=== PATIENT | female | born 1960 | race Caucasian/White ===

== ENCOUNTER 2020-05-21 11:43 | Emergency (ER) | payer OTHER, SELFPAY ==
[2020-05-21 11:50] VITALS: BP 118/67; PULSE 96; RESP 16; TEMP 36.1; O2SAT 100
--- NOTE | 2020-05-21 11:57 | ED.GENADULT ---
HPI - General Adult General Chief complaint: Abdominal Pain Stated complaint: LOWER L ABD PAIN Time Seen by Provider: 05/21/20 11:57 Source: patient Mode of arrival: ambulatory Limitations: no limitations History of Present Illness HPI narrative: 59-year-old female patient presents to the [facility] with complaints of left lower quadrant abdominal pain that started last night. Patient denies any fevers, body aches or chills. Denies any nausea, vomiting or diarrhea. Patient denies any pain with urination. Denies any blood in her stool. Patient states she thought at first it was her chili that she ate last night however she states that she has had diverticulitis before about a year and a half ago and is concerned that she might have another flareup. Related Data Home Medications Medication Instructions Recorded Confirmed cholecalciferol (vitamin D3) 25 mcg PO DAILY 05/21/20 05/21/20 [Vitamin D3] rosuvastatin 10 mg PO DAILY 05/21/20 05/21/20 Allergies Allergy/AdvReac Type Severity Reaction Status Date / Time Sulfa (Sulfonamide Allergy Unknown RASH Verified 05/21/20 11:48 Antibiotics) Review of Systems Review of Systems: Narrative: CONSTITUTIONAL: Denies fever, chills, or sweats. EYES: Denies visual changes, redness, or discharge. ENT: Denies rhinorrhea, congestion, sore throat, or otalgia. CARDIOVASCULAR: Denies chest pain, palpitations, or edema. RESPIRATORY: Denies cough or dyspnea. GASTROINTESTINAL: Positive left lower abdominal pain, denies nausea, vomiting, or diarrhea. GENITOURINARY: Denies dysuria or hematuria. SKIN: Denies rash or itching. MUSCULOSKELETAL: Denies back pain, joint pain, or myalgia. NEUROLOGIC: Denies headache, numbness, or weakness. PSYCHIATRIC: Denies anxiety or depression. [facility] Past Medical History Medical History (Updated 05/21/20 @ 12:23 by MELISA Dickens) Hypertension Postmenopausal Family History Family History Sibling Family history of osteoarthritis Family history of malignant neoplasm of breast in first degree relative Patient's sister is Mother Family history of diabetes mellitus in first degree relative Patient's mother is Social History Social History Alcohol intake: never Comments At the time of my signature I agree with nursing past medical history, surgical, social, and family history. There is no relevant family history pertinent to the presenting complaint. Exam Narrative: Exam Narrative: GENERAL: Well-appearing, well-nourished, and in no acute distress. HEAD: Normocephalic, atraumatic. EYES: PERRLA and EOMI. ENT: Nares clear, no rhinorrhea or epistaxis. Mucous membranes moist. NECK: Supple. No lymphadenopathy CHEST: Clear to auscultation. No respiratory distress. HEART: Regular rate and rhythm. No murmur heard. Normal peripheral pulses. ABDOMEN: Soft, flat, nondistended. guarding noted to the left side, no rebound tenderness, or rigid. Patient has tenderness to the left lower quadrant on palpation. No pulsatilla masses. Bowel sounds present in all four quadrants. No organomegaly. Negative Nolan?s sign. No periumbicial tenderness. No Supra public tenderness or distension. Good femoral pulses bilaterally. No hernia noted. No scars or surface trauma. EXTREMITIES: Normal range of motion. No edema. SKIN: Warm, dry, no rash. NEURO: No focal deficits. Alert and oriented x3. Course Vital Signs Vital signs: Vital Signs Temperature 36.1 C L 05/21/20 11:50 Pulse Rate 96 05/21/20 11:50 Respiratory Rate 16 05/21/20 11:50 Blood Pressure 118/67 05/21/20 11:50 Pulse Oximetry 100 05/21/20 11:50 Temperature 36.1 C L 05/21/20 11:50 Pulse Rate 96 05/21/20 11:50 Respiratory Rate 16 05/21/20 11:50 Blood Pressure 118/67 05/21/20 11:50 Pulse Oximetry 100 05/21/20 11:50 V
== END 2020-05-21 12:24 | disposition short-term general hospital (02) ==
PROVIDERS: Emergency Provider Nurse Practitioner Family; PCP Physician Assistant
DX: R10.32 Left lower quadrant pain (principal); I10 Essential (primary) hypertension
CPT/HCPCS: 81003; 99212; G0463

== ENCOUNTER 2020-05-21 12:35 | Emergency (ER) | payer OTHER, SELFPAY ==
--- NOTE | ~2020-05-21 | CT_ITS ---
EXAMINATION: CT abdomen pelvis w con DATE: 05/21/2020 13:46 INDICATION: Left lower quadrant pain. Diverticulitis. TECHNIQUE: Computed tomography (CT) of the head was performed with 100 cc Omnipaque 350 intravenous c ontrast. The dose-length product was 1066.92 mGy-cm. Automated exposure control and iterative reconst ruction technique were employed. COMPARISON: CT dated 06/24/2018 FINDINGS: Lung bases are unremarkable. No significant pleural or pericardial effusion. No significant vascular abnormality. There is acute sigmoid diverticulitis with moderate surrounding phlegmonous change and free fluid. No free air. No abscess. Normal appendix. The liver, spleen, pancreas, adrenal glands and kidneys are unremarkable. No hydronephrosis. Nonobstr uctive bowel gas pattern. No acute osseous abnormality. IMPRESSION: 1. Acute sigmoid diverticulitis with moderate surrounding phlegmonous change. No evidence for abscess or perforation. Reviewed, dictated and finalized at location A. ONIC LABORATORY TECHNICIAN IMPRESSION: 1. Acute sigmoid diverticulitis with moderate surrounding phlegmonous change. N o evidence for abscess or perforation.
[2020-05-21 12:40] VITALS: BP 113/64; PULSE 102; RESP 18; TEMP 36.1; O2SAT 99
[2020-05-21 13:12] LABS: Basophils Percent Auto 0.2 % (0.2-1.2); Eosinophils Absolute Auto 0.1 K/mm3 (0-0.3); Eosinophils Percent Auto 0.5 % (0-4.4); Hematocrit 46.6 % (37.0-47.0); Hemoglobin 15.7 g/dL (12.0-15.0); Immature Granulocyte Absolute 0.05 K/mm3 (0.00-0.031); Immature Granulocyte Percent A 0.3 % (0-0.5); Lymphocytes Absolute Auto 2.07 K/mm3 (0.9-3.2); Lymphocytes Percent Auto 13.5 % (18.3-44.2); Mean Corpuscular HGB Conc 33.7 g/dl (32-36); Mean Corpuscular Hemoglobin 31.3 pg (26-34); Mean Corpuscular Volume 92.8 fl (80-100); Mean Platelet Volume 9.7 fl (7.4-10.4); Monocytes Absolute Auto 1.2 K/mm3 (0.1-0.6); Monocytes Percent Auto 7.5 % (2.6-8.5); Platelet Count Result 293 k/mm3 (150-375); Red Blood Count 5.02 M/mm3 (4.2-5.4); Red Cell Distribution Width 12.5 % (11.5-14.5); White Blood Count 15.4 K/mm3 (4.5-10.0)
[2020-05-21 13:14] LABS: Add Urine Microscopic? NO; Appearance Urine Clear (Clear); Bilirubin Urine Negative (Negative); Blood Urine Negative (Negative); Color Urine Yellow (Yellow); Glucose Urine UA Negative (Negative); Ketones Urine Negative (Negative); Leukocyte Esterase Ur Negative LEU/UL (Negative); Nitrate Urine Negative (Negative); Protein Urine Negative (Negative); Specific Grav Ur 1.018 (1.001-1.035); Urobilinogen Urine Negative mg/dL (<2.0)
[2020-05-21] MEDS: SODIUM CHLORIDE 0.9% IV 1,000 ML 999 ML IV CONT (13:14)
[2020-05-21] MEDS: FAMOTIDINE 20 MG/2 ML VIAL IV PUSH (13:14)
[2020-05-21 13:17] VITALS: BP 125/65; PULSE 80; RESP 20; O2SAT 98
[2020-05-21 13:18] LABS: Alanine Aminotransferase 39 U/L (4-35); Alkaline Phosphatase 39 U/L (38-126); Anion Gap 7 mmol/L (8-16); Aspartate Amino Transferase 32 U/L (14-36); Bilirubin,Total 0.7 mg/dL (0.2-1.3); Blood Urea Nitrogen 16 mg/dL (7-17); Carbon Dioxide 32 mmol/L (22-30); Chloride 101 mmol/L (98-107); Estimated CRCL calculation 61 ml/min; Estimated Glomerular Filt Rate 56; Glucose 100 mg/dL (65-105); Lipase 108 U/L (23-300); Potassium 4.1 mmol/L (3.4-5.0); Sodium 140 mmol/L (137-145)
--- NOTE | 2020-05-21 13:37 | ED.GENADULT ---
HPI - General Adult General Chief complaint: Abdominal Pain <Andrea Beltre PA-C - Last Filed: 05/21/20 14:37> Stated complaint: abd pain <Andrea Beltre PA-C - Last Filed: 05/21/20 14:37> Time Seen by Provider: 05/21/20 12:50 <Andrea Beltre PA-C - Last Filed: 05/21/20 14:37> Source: patient <Andrea Beltre PA-C - Last Filed: 05/21/20 14:37> Mode of arrival: ambulatory <Andrea Beltre PA-C - Last Filed: 05/21/20 14:37> History of Present Illness HPI narrative: Patient is a 59-year-old female who presents from urgent care for evaluation of left lower quadrant abdominal pain that started with last night and has worsened into today patient notes history of diverticulitis with concern denies rectal bleeding melena urinary or vaginal complaints or any URI symptoms has not had anything for her symptoms and presents in no distress <Andrea Beltre PA-C - Last Filed: 05/21/20 14:37> Related Data Home medications: Home Medications Medication Instructions Recorded Confirmed cholecalciferol (vitamin D3) 25 mcg PO DAILY 05/21/20 05/21/20 [Vitamin D3] rosuvastatin 10 mg PO DAILY 05/21/20 05/21/20 <Andrea Beltre PA-C - Last Filed: 05/21/20 14:37> Allergies/adverse reactions: Allergies Allergy/AdvReac Type Severity Reaction Status Date / Time Sulfa (Sulfonamide Allergy Unknown RASH Verified 05/21/20 11:48 Antibiotics) <Andrea Beltre PA-C - Last Filed: 05/21/20 14:37> Review of Systems Review of Systems: All systems reviewed & are unremarkable except as noted in HPI and below <Andrea Beltre PA-C - Last Filed: 05/21/20 14:37> PMF Past Medical History Medical History: Medical History Hypertension Postmenopausal <nAdrea Beltre PA-C - Last Filed: 05/21/20 14:37> Family History Family History: Family History Sibling Family history of osteoarthritis Family history of malignant neoplasm of breast in first degree relative Patient's sister is Mother Family history of diabetes mellitus in first degree relative Patient's mother is <Andrea Beltre PA-C - Last Filed: 05/21/20 14:37> Social History Social History: Social History Alcohol intake: never <Andrea Beltre PA-C - Last Filed: 05/21/20 14:37> Exam Narrative: Exam Narrative: GENERAL: Well-appearing, well-nourished, and in no acute distress. HEAD: Normocephalic, atraumatic. EYES: PERRLA and EOMI. ENT: Nares clear, no rhinorrhea or epistaxis. Mucous membranes moist. CHEST: Clear to auscultation. No respiratory distress. No wheezes rales or rhonchi HEART: Regular rate and rhythm. No murmur heard. Normal peripheral pulses. ABDOMEN: Soft, focal left lower quadrant tenderness to palpation with guarding, nondistended EXTREMITIES: Normal range of motion. No edema. SKIN: Warm, dry, no rash. NEURO: No focal deficits. Alert and oriented x3. PSYCH: Normal mood and affect. <Andrea Beltre PA-C - Last Filed: 05/21/20 14:37> Course Course Emergency Course: Patient found to have uncomplicated sigmoid diverticulitis will be discharged home was hydrated in the emergency department is afebrile nontoxic-appearing no distress given reasons to return will follow with primary care and is also been provided with a GI referral <Andrea Beltre PA-C - Last Filed: 05/21/20 14:37> Vital Signs Vital signs: Vital Signs Temperature 97.0 F L 05/21/20 12:40 Pulse Rate 102 H 05/21/20 12:40 Respiratory Rate 18 05/21/20 12:40 Blood Pressure 113/64 05/21/20 12:40 Pulse Oximetry 99 05/21/20 12:40 Temperature 97.0 F L 05/21/20 12:40 Pulse Rate 92 05/21/20 14:54 Respiratory Rate 20 05/21/20 14:54 Blood Pressure 141/68 H
[2020-05-21 14:22] VITALS: BP 141/68; PULSE 84; RESP 20; O2SAT 98
[2020-05-21 14:54] VITALS: BP 141/68; PULSE 92; RESP 20; O2SAT 97
== END 2020-05-21 14:56 | disposition home or self-care (01) ==
PROVIDERS: Emergency Medicine; Emergency Provider General Practice; PCP Physician Assistant
DX: K57.32 Diverticulitis of large intestine without perforation or abscess without bleeding (principal); I10 Essential (primary) hypertension
CPT/HCPCS: 36415; 74177; 80053; 81003; 83690; 85025; 96361; 96374; 99284; J7030; Q9967

== ENCOUNTER 2020-11-07 08:00 | Outpatient (CLI) | payer OTHER, SELFPAY ==
--- NOTE | ~2020-11-07 | MM_ITS ---
EXAMINATION: MM screening sandy BI w bing HISTORY: Screening mammogram TECHNIQUE: Craniocaudal and mediolateral oblique 3-D tomosynthesis images were obtained and synthetic 2-D images were generated. CAD analysis was submitted and interpreted. COMPARISON: 03/25/2017 bilateral diagnostic digital mammography and limited left breast ultrasound 03/24/2010, 02/12/2008 bilateral digital screening mammogram examinations BREAST PARENCHYMAL COMPOSITION: The breasts are heterogeneously dense, which may obscure small masses . FINDINGS: There is asymmetry in the outer right breast on craniocaudal view; diagnostic right mammogr am is recommended, with ultrasound if required. Otherwise there Is no evidence of suspicious mass, calcification, or architectural distortion to sugg est malignancy in either breast. There has been no suspicious interval change. IMPRESSION: 1. Asymmetry in the outer right breast on craniocaudal view 2. Diagnostic right mammogram is recommended, with ultrasound if required BI-RADS Category 0: Incomplete: Needs additional imaging evaluation. Reviewed, dictated and finalized at location A.
== END 2020-11-07 08:01 | disposition home or self-care (01) ==
LOC: ANHIMG 08:03
PROVIDERS: PCP Physician Assistant; Visit Provider Physician Assistant
DX: Z12.31 Encounter for screening mammogram for malignant neoplasm of breast (principal); R92.8 Other abnormal and inconclusive findings on diagnostic imaging of breast
CPT/HCPCS: 77063; 77067

== ENCOUNTER 2020-12-02 12:06 | Outpatient (CLI) | payer OTHER, SELFPAY ==
--- NOTE | ~2020-12-02 | MM_ITS ---
EXAMINATION: MM diagnostic mammo unilat RT HISTORY: Right breast asymmetries on screening mammogram TECHNIQUE: Additional 3-D tomosynthesis images of the right breast were performed and synthetic 2-D i mages were generated. CAD analysis was submitted and interpreted. COMPARISON: 11/07/2020, 03/25/2017, 03/24/2010 BREAST PARENCHYMAL COMPOSITION: The breasts are heterogeneously dense, which may obscure small masses . FINDINGS: There is a return to baseline fibroglandular appearance with spot compression of the right breast in the areas questioned on screening mammogram. IMPRESSION: 1. No mammographic evidence of malignancy. 2. Recommend routine screening mammography in one year. BI-RADS Category 1: Negative Reviewed, dictated and finalized at location A.
== END 2020-12-02 12:07 | disposition home or self-care (01) ==
LOC: ANHIMG 12:08
PROVIDERS: PCP Physician Assistant; Visit Provider Physician Assistant
DX: R92.8 Other abnormal and inconclusive findings on diagnostic imaging of breast (principal)
CPT/HCPCS: 77065

== ENCOUNTER 2021-01-05 15:26 | Outpatient (CLI) | payer OTHER, SELFPAY ==
[2021-01-05 17:39] LABS: Iron 83 ug/dL (37-170)
[2021-01-05 17:49] LABS: Percent Iron Saturation 30 % (20-50)
[2021-01-05 18:00] LABS: Hepatitis B Surface Antigen Negative (Negative)
[2021-01-05 18:06] LABS: HAV RESULT Negative (Negative); Hepatitis B Core IgM Result Negative (Negative)
[2021-01-05 18:18] LABS: Hepatitis C Virus Antibody Negative (Negative)
[2021-01-10 20:30] LABS: Alpha-1-Antitrypsin, QN 120 mg/dL (83-199); Ceruloplasmin 28 mg/dL (18-53)
[2021-01-11 23:06] LABS: Mitochondrial (M2) Ab (IgG) <=20.0 U (<=20.0)
[2021-01-18 10:57] LABS: Fibrosis Score 0.03; Fibrosis Stage F0; Haptoglobin 193; Necroinflammat Act Grade A0
[2021-01-18 10:58] LABS: ALT 24; Alpha-2-Macroglobulin 129; Apolipoprotein A1 185; GGT 20; Total Bilirubin 0.2
== END 2021-01-05 15:27 | disposition home or self-care (01) ==
LOC: ANHLAB 15:27
PROVIDERS: PCP Physician Assistant; Visit Provider Internal Medicine Gastroenterology
DX: R74.8 Abnormal levels of other serum enzymes (principal)
CPT/HCPCS: 36415; 80074; 81596; 82103; 82104; 82390; 82728; 83520; 83540; 83550; 86038

== ENCOUNTER 2022-03-16 04:14 | Observation (INO) | payer OTHER, SELFPAY ==
[2022-03-16] VITALS (20 sets, daily range): BP systolic 104–137; BP diastolic 69–84; PULSE 66–98; RESP 10–19; TEMP 36.2–36.6; O2SAT 96–99; BMI 30.7
--- NOTE | ~2022-03-16 | CT_ITS ---
EXAMINATION: CT abdomen pelvis w con DATE: 03/16/2022 05:06 INDICATION: Abdomen pain TECHNIQUE: Computed tomography (CT) of the abdomen and pelvis was performed with 100 cc Omnipaque 350 intravenous contrast. The dose-length product was 1250.95 mGy-cm. Automated exposure control and ite rative reconstruction technique were employed. COMPARISON: CT dated 05/21/2020. FINDINGS: Lung bases are unremarkable. Heart size normal. No significant pleural or pericardial effus ion. No significant vascular abnormality. No lymphadenopathy. The liver, spleen, pancreas, adrenal glands and kidneys are unremarkable. Gallbladder is present. There is proximal acute sigmoid diverticulitis with probable intramural abscess measuring 18 x 15 mm. No free air. Trace free fluid in the pelvis. Nonobstructive bowel gas pattern. IMPRESSION: 1. Acute proximal sigmoid colon diverticulitis with probable intramural abscess measuring 18 x 15 mm, series 3 image 158. Reviewed, dictated and finalized at location B.
[2022-03-16 04:40] LABS: Basophils Absolute Auto 0.1 K/mm3 (0.0-0.1); Basophils Percent Auto 0.5 % (0.2-1.2); Eosinophils Absolute Auto 0.2 K/mm3 (0-0.3); Eosinophils Percent Auto 1.6 % (0-4.4); Hematocrit 44.2 % (37.0-47.0); Hemoglobin 14.9 g/dL (12.0-15.0); Immature Granulocyte Absolute 0.02 K/mm3 (0.00-0.031); Immature Granulocyte Percent A 0.2 % (0-0.5); Lymphocytes Absolute Auto 2.58 K/mm3 (0.9-3.2); Mean Corpuscular HGB Conc 33.7 g/dl (32-36); Mean Corpuscular Hemoglobin 31.1 pg (26-34); Mean Corpuscular Volume 92.3 fl (80-100); Mean Platelet Volume 9.7 fl (7.4-10.4); Monocytes Percent Auto 9.6 % (2.6-8.5); Neutrophils Absolute Auto 6.9 K/mm3 (1.3-6.7); Neutrophils Percent Auto 64.1 % (45.5-73.1); Platelet Count Result 273 k/mm3 (150-375); Red Blood Count 4.79 M/mm3 (4.2-5.4); Red Cell Distribution Width 12.5 % (11.5-14.5); White Blood Count 10.7 K/mm3 (4.5-10.0)
--- NOTE | 2022-03-16 04:41 | ED.GENADULT ---
HPI - General Adult General Chief complaint: Abdominal Pain Stated complaint: ABD Cramping Time Seen by Provider: 03/16/22 04:28 Source: RN notes reviewed History of Present Illness HPI narrative: Patient presents emergency department from home for abdominal pain. Patient states that symptoms began 2 days ago. The pain is located in left lower abdomen described as sharp and stabbing states the pain does not radiate. States has been associate with constipation. She denies any fevers or chills nausea or vomiting or any other symptoms. States she took Tylenol earlier in the night for the pain with minimal relief states she has a history of diverticulitis Related Data Home Medications Medication Instructions Recorded Confirmed rosuvastatin 10 mg tablet 10 mg PO DAILY 05/21/20 05/21/20 Allergies Allergy/AdvReac Type Severity Reaction Status Date / Time Sulfa (Sulfonamide Allergy Unknown RASH Verified 03/16/22 04:22 Antibiotics) ciprofloxacin [From Cipro] Allergy Unknown Verified 03/16/22 04:22 Review of Systems Review of Systems: Gen.: Denies fevers or chills ENT: Denies congestion Respiratory: Denies shortness of breath or cough CV: Denies chest pain or palpitations GI: See HPI Musculoskeletal: Denies back pain or muscle pain Neuro: Denies numbness, tingling, weakness or focal weakness Skin: Denies rash Except as documented, all other systems reviewed and negative [facility] Past Medical History Medical History Colon cancer screening Elevated liver enzymes Hypertension Postmenopausal Family History Family History Sibling Family history of osteoarthritis Family history of malignant neoplasm of breast in first degree relative Patient's sister is Mother Family history of diabetes mellitus in first degree relative Patient's mother is Social History Social History Smoking status: Never smoker Alcohol intake: never Substance use: never Exam Narrative: APPEARANCE: No acute distress, nontoxic, resting in bed HEENT: Normocephalic, atraumatic, OMM RESPIRATORY: No respiratory distress, clear to auscultation bilaterally with no rhonchi wheezing or rales CARDIOVASCULAR: RRR s murmur ABDOMINAL: Soft nondistended tender palpation left lower quadrant no tenderness right lower quadrant and right upper quadrant left upper quadrant no rebound or guarding MUSCULOSKELETAl: Moves all extremities. No clubbing, cyanosis or edema. NEURO: Awake and alert. Following commands, speech normal, no focal deficits SKIN:: Warm, dry. Normal Color PSYCHIATRIC: Normal affect/mood Course Course Emergency Course: Discussed with Dr. Vanegas presentation work-up agrees with admission to his service Discussed with patient and family results of workup and diagnosis. Discussed need for admission. Patient and family understand and agree to current treatment plan Vital Signs Vital signs: Vital Signs Temperature 97.7 F 03/16/22 04:22 Pulse Rate 98 03/16/22 04:22 Respiratory Rate 18 03/16/22 04:22 Blood Pressure 104/84 03/16/22 04:22 Pulse Oximetry 99 03/16/22 04:22 Oxygen Delivery Room Air 03/16/22 04:22 Temperature 97.7 F 03/16/22 04:22 Pulse Rate 81 03/16/22 05:30 Respiratory Rate 17 03/16/22 05:30 Blood Pressure 123/69 03/16/22 04:46 Pulse Oximetry 99 03/16/22 04:22 Oxygen Delivery Room Air 03/16/22 04:22 Medical Decision Making Vital Signs Vital Signs: Vital Signs Temperature 97.7 F 03/16/22 04:22 Pulse Rate 98 03/16/22 04:22 Respiratory Rate 18 03/16/22 04:22 Blood Pressure 104/84 03/16/22 04:22 Pulse Oximetry 99 03/16/22 04:22 Oxygen Delivery Room Air 03/16/22 04:22 Temperature 97.7 F 03/16/22 04:22 Pulse Rate 81 03/16/22 05:30 Re
[2022-03-16 04:51] LABS: Alanine Aminotransferase 30 U/L (6-35); Albumin Level 4.6 g/dL (3.5-5.1); Alkaline Phosphatase 38 U/L (38-126); Anion Gap 5 mmol/L (8-16); Aspartate Amino Transferase 29 U/L (14-36); Bilirubin,Total 0.7 mg/dL (0.2-1.3); Blood Urea Nitrogen 15 mg/dL (7-17); Calcium 9.6 mg/dL (8.4-10.2); Carbon Dioxide 30 mmol/L (22-30); Chloride 104 mmol/L (98-107); Estimated CRCL calculation 66 ml/min; Estimated Glomerular Filt Rate > 60; Glucose 113 mg/dL (65-110); Lipase 68 U/L (23-300); Potassium 4.1 mmol/L (3.4-5.0); Sodium 139 mmol/L (137-145)
[2022-03-16] MEDS: KETOROLAC 30 MG/ML VIAL (*BKC) IV PUSH (05:05)
[2022-03-16] MEDS: ONDANSETRON INJ 4 MG/2 ML VIAL IV PUSH (05:05)
[2022-03-16] MEDS: SODIUM CHLORIDE 0.9% IV 1,000 ML 999 ML IV CONT (05:05)
[2022-03-16 05:11] LABS: Appearance Urine Clear (Clear); Bilirubin Urine Negative (Negative); Blood Urine Negative (Negative); Color Urine Yellow (Yellow); Glucose Urine UA Negative (Negative); Ketones Urine Negative (Negative); Leukocyte Esterase Ur Negative LEU/UL (Negative); Mucus Urine Rare /lpf; Nitrate Urine Negative (Negative); Protein Urine Negative (Negative); RBC Urine 0-2 /hpf (0-2); Specific Grav Ur 1.025 (1.001-1.035); Squamous Epithelial Cell Urine Rare /hpf (Few); Urobilinogen Urine 0.2 mg/dL (<2.0); pH Urine 5.5 (5.0-9.0)
[2022-03-16 05:12] LABS: Add Urine Microscopic? NO
[2022-03-16 06:41] LABS: SARS-CoV-2 RNA PCR Negative
[2022-03-16] MEDS: SODIUM CHLORIDE 0.9% IV 1,000 ML 125 ML IV CONT ×2 (06:58→18:09)
--- NOTE | 2022-03-16 10:59 | PM.IMHP ---
H&P: HPI History of Present Illness Date/Time: 03/16/22 10:59 Chief Complaint: Left lower quadrant abdominal pain Narrative: The patient is a 61-year-old female presenting to the emergency department complaining of severe left lower quadrant abdominal pain. The patient reports the pain has been present for last few days and has progressively been worsening. Patient reports the pain is sharp and stabbing localized to the right lower quadrant. The patient reports associated poor appetite, fevers, and chills. The patient reports she has had at least 2 other episodes over the last couple of years, however, they were not as severe and were treated with outpatient antibiotics. Review of Systems Constitutional: Constitutional: Reports as per HPI, Denies anorexia, Reports chills, Reports fatigue, Reports fever(s), Reports lethargy, Reports malaise, Reports poor appetite, Reports weakness, Denies weight gain and Denies weight loss Eyes: Eyes: Reports no additional eye complaints ENT: Reports system reviewed and no additional complaints, except as documented Cardiovascular: Cardiovascular: Reports no additional cardiovascular complaints Respiratory: Respiratory: Reports no additional respiratory complaints Gastrointestinal: Gastrointestinal: Reports as per HPI, Reports abdominal pain, Reports bloating, Reports change in bowel habits, Reports GI cramping, Reports nausea, Denies vomiting and Denies hematemesis Genitourinary: Genitourinary: Reports no additional female genitourinary complaints Musculoskeletal: Musculoskeletal: Reports no additional musculoskeletal complaints Integumentary/Breasts: Skin/Breast: Reports system reviewed and no additional complaints, except as docu Neurologic: Reports system reviewed and no additional complaints, except as documented Psychiatric: Psychiatric: Reports no additional psychiatric complaints Endocrine: Endocrine: Reports no additional endocrine complaints Hematologic/Lymphatic: Hematologic/Lymphatic: Reports no additional hematologic/lymphatic complaints Allergic/Immunologic: Allergic/Immunologic: Reports no additional allergic/immunologic complaints PMF Past Medical History Medical History Colon cancer screening Elevated liver enzymes Hypertension Postmenopausal Family History Family History Sibling Family history of osteoarthritis Family history of malignant neoplasm of breast in first degree relative Patient's sister is Mother Family history of diabetes mellitus in first degree relative Patient's mother is Social History Social History Smoking status: Never smoker Alcohol intake: unknown Substance use: never Spiritual care concerns: No Meds Home Medications and Allergies Home Medications Medication Instructions Recorded Confirmed Type rosuvastatin 10 mg tablet 10 mg PO DAILY 05/21/20 03/16/22 History amoxicillin 875 mg-potassium 1 tablet PO BID 03/16/22 03/16/22 History clavulanate 125 mg tablet metronidazole 500 mg tablet 500 mg PO TID 03/16/22 03/16/22 History Allergies Allergy/AdvReac Type Severity Reaction Status Date / Time Sulfa (Sulfonamide Allergy Unknown RASH Verified 03/16/22 08:03 Antibiotics) ciprofloxacin [From Cipro] Allergy Unknown Verified 03/16/22 08:03 Vital Signs Vital Signs - 24 hr 03/16/22 04:22 03/16/22 04:32 03/16/22 04:34 Temperature 36.5 C Pulse Rate 98 77 Respiratory Rate 18 19 10 L Blood Pressure 104/84 137/74 Pulse Oximetry 99 Oxygen Delivery Room Air 03/16/22 04:45 03/16/22 04:46 03/16/22 05:04 Temperature Pulse Rate 78 80 94 Respiratory Rate 16 15 14 Blood Pressure 123/69 Pulse Oximetry Oxygen Delivery 03/16/22 05:15 03/16/22 05:30 03/16/22 05:45 Temperature P
--- NOTE | 2022-03-16 13:00 | ADMGEN ---
This patient, Chrissy Christine, was admitted to [facility] Surg Room 311-01 at 0750. Patient/family oriented to hospital policies and general routines including ID bracelet, bed and alarms, visiting hours, pain management, procedures, bathroom and other care routines, personal items, smoking policy, room service/diet, and visiting hours. Information on how to activate the Rapid Response Team has been discussed. Patient/Family are encouraged to report perceived risks to care and to ask questions if they do not understand what they are told or what they should do.
[2022-03-16] MEDS: ACETAMINOPHEN 325 MG TABLET 650 MG PO (18:09)
[2022-03-17 05:50] VITALS: BP 147/75; PULSE 68; RESP 18; TEMP 36.4; O2SAT 98
[2022-03-17 06:01] LABS: Basophils Percent Auto 0.4 % (0.2-1.2); Eosinophils Absolute Auto 0.2 K/mm3 (0-0.3); Eosinophils Percent Auto 3.2 % (0-4.4); Hematocrit 39.9 % (37.0-47.0); Hemoglobin 13.3 g/dL (12.0-15.0); Immature Granulocyte Absolute 0.01 K/mm3 (0.00-0.031); Immature Granulocyte Percent A 0.2 % (0-0.5); Lymphocytes Absolute Auto 1.71 K/mm3 (0.9-3.2); Lymphocytes Percent Auto 30.3 % (18.3-44.2); Mean Corpuscular HGB Conc 33.3 g/dl (32-36); Mean Corpuscular Hemoglobin 31.5 pg (26-34); Mean Corpuscular Volume 94.5 fl (80-100); Mean Platelet Volume 9.8 fl (7.4-10.4); Monocytes Absolute Auto 0.5 K/mm3 (0.1-0.6); Monocytes Percent Auto 9.2 % (2.6-8.5); Neutrophils Absolute Auto 3.2 K/mm3 (1.3-6.7); Neutrophils Percent Auto 56.7 % (45.5-73.1); Platelet Count Result 225 k/mm3 (150-375); Red Blood Count 4.22 M/mm3 (4.2-5.4); Red Cell Distribution Width 12.5 % (11.5-14.5); White Blood Count 5.6 K/mm3 (4.5-10.0)
[2022-03-17 06:16] LABS: Alanine Aminotransferase 27 U/L (6-35); Albumin Level 3.8 g/dL (3.5-5.1); Alkaline Phosphatase 30 U/L (38-126); Anion Gap 6 mmol/L (8-16); Aspartate Amino Transferase 29 U/L (14-36); Bilirubin,Total 0.7 mg/dL (0.2-1.3); Blood Urea Nitrogen 9 mg/dL (7-17); Calcium 8.9 mg/dL (8.4-10.2); Carbon Dioxide 25 mmol/L (22-30); Chloride 110 mmol/L (98-107); Estimated CRCL calculation 60 ml/min; Estimated Glomerular Filt Rate 56; Glucose 100 mg/dL (65-110); Potassium 4.3 mmol/L (3.4-5.0); Sodium 141 mmol/L (137-145)
[2022-03-17] MEDS: SODIUM CHLORIDE 0.9% IV 1,000 ML 125 ML IV CONT (06:17)
--- NOTE | 2022-03-17 08:33 | PM.DS ---
DS: Admitting Diagnosis Discharge Date 03/17/2022 Admitting Diagnosis Acute diverticulitis with intramural abscess DS: Discharge Diagnosis Discharge Diagnosis (1) Diverticulitis of intestine with abscess: Code(s): K57.80 - Diverticulitis of intestine, part unspecified, with perforation and abscess without bleeding Status: Acute Assessment and Plan: doing well with conservative management, continue p.o. antibiotics for additional 5 days, low-fiber diet, follow-up in 2 weeks DS: Summary Hospital Course Reason for hospitalization: acute diverticulitis with intramural abscess Hospital Course: The patient is a 61-year-old female presenting to the emergency department complaining of severe left lower quadrant abdominal pain. Workup in the emergency department, including CT scan, was significant for acute diverticulitis with intramural abscess. The patient was subsequently admitted to the surgical service and made NPO. She was started on IV antibiotics. The patient did well with this treatment and reported that her pain was much improved throughout her hospital stay. Her white count normalized by hospital day number 1. The patient was started on a low-fiber diet which she tolerated without issue. The patient will now be discharged home with continued p.o. antibiotics and low-fiber diet. She will follow-up with me in 2 weeks. Status at Discharge Overall status at discharge: patient is progressing back to baseline Time Spent with Patient Time attestation: Total time spent providing and/or coordinating discharge services: Exam Const: General: cooperative, healthy appearing, comfortable and no acute distress Resp: Auscultation: clear to auscultation bilaterally Cardio: Rate: regular rate Rhythm: regular rhythm GI: Inspection: normal to inspection and non-distended GI Palp: Yes abdominal tenderness, Yes Soft to palpation, Yes Tenderness to palpation present (GI), No Guarding due to palpation present (GI) and No Rigid due to palpation DS: Data Data Completed and Pending Labs on day of discharge: Labs from last 24 hours 03/17/22 03/17/22 05:47 05:47 WBC 5.6 RBC 4.22 Hgb 13.3 Hct 39.9 MCV 94.5 MCH 31.5 MCHC 33.3 RDW 12.5 Plt Count 225 MPV 9.8 Immature Gran % (Auto) 0.2 Neut % (Auto) 56.7 Lymph % (Auto) 30.3 [place] % (Auto) 9.2 H Eos % (Auto) 3.2 Baso % (Auto) 0.4 Lymph # (Auto) 1.71 [place] # (Auto) 0.5 Eos # (Auto) 0.2 Baso # (Auto) 0.0 Abs Immat Gran (auto) 0.01 Absolute Neuts (auto) 3.2 Absolute Nucleated RBC 0.0 Nucleated RBC % 0.0 Sodium 141 Potassium 4.3 Chloride 110 H Carbon Dioxide 25 Anion Gap 6 L BUN 9 D Creatinine 1.00 Estim Creat Clear Calc 60 Estimated GFR 56 L Glucose 100 Calcium 8.9 Total Bilirubin 0.7 AST 29 ALT 27 Alkaline Phosphatase 30 L Total Protein 7.0 Albumin 3.8 Discharge Plan Discharge Attending physician on discharge: Muna Vanegas Discharging Clinician: Muna Vanegas Anticipated Discharge Date/Time: 03/17/22 13:00 Patient Disposition: Home, Self-Care Activity: may shower and unlimited Diet: low fiber Patient Instructions: Antibiotic Form Stand Alone Forms: General Discharge Information Follow-up/Referrals: Muna Vanegas MD [Physician] - 2 Weeks Discharge Medications: New metronidazole [Flagyl] 375 mg capsule 375 mg PO Q12H Qty: 10 0RF amoxicillin-pot clavulanate [Augmentin] 500-125 mg tablet 1 tablet PO Q12H Qty: 10 0RF Continued rosuvastatin 10 mg tablet 10 mg PO DAILY metronidazole [Flagyl] 500 mg Tablet 500 mg PO TID Rx Instructions: Patient completed medication; patient received antibiotic for previous diverticulitis episode amoxicillin-pot clavulanate 875-125 mg tablet 1 tablet PO BID Rx Instructions: Patient completed medication; patient received antibiotic for previous diverti
== END 2022-03-17 09:20 | disposition home or self-care (01) ==
LOC: ANHED 06:07 → ANH3MEDSUR 07:54
PROVIDERS: Admitting Provider Surgery; Emergency Provider Emergency Medicine; PCP Physician Assistant; Visit Provider Surgery
DX: K57.80 Diverticulitis of intestine, part unspecified, with perforation and abscess without bleeding (principal); I10 Essential (primary) hypertension; Z20.822 Contact with and (suspected) exposure to COVID-19
CPT/HCPCS: 36415; 74177; 80053; 81003; 83690; 85025; 96361; 96365; 96366; 96374; 96375; 99285; A9270; C9803; G0378; J1885; J2405; J2543; J7030; Q9967; U0003; U0005

== ENCOUNTER 2022-08-23 09:24 | Outpatient (CLI) | payer OTHER, SELFPAY ==
--- NOTE | ~2022-08-23 | MM_ITS ---
EXAMINATION: MM screening sandy BI w bing HISTORY: Screening mammogram, family history of breast cancer in her mother. TECHNIQUE: Craniocaudal and mediolateral oblique 3-D tomosynthesis images were obtained and synthetic 2-D images were generated. CAD analysis was submitted and interpreted. COMPARISON: 12/02/2020, 11/07/2020, 04/04/2017, 03/24/2010 BREAST PARENCHYMAL COMPOSITION: The breasts are heterogeneously dense, which may obscure small masses . FINDINGS: No suspicious mass, calcification, or architectural distortion are identified in either john ast to suggest malignancy. There has been no suspicious interval change. IMPRESSION: 1. No mammographic evidence of malignancy. 2. Recommend routine screening mammography in one year. BI-RADS Category 1: Negative Reviewed, dictated and finalized at location A. N ROOM CUSTODIAN
== END 2022-08-23 09:25 | disposition home or self-care (01) ==
PROVIDERS: PCP Physician Assistant; Visit Provider Physician Assistant
DX: Z12.31 Encounter for screening mammogram for malignant neoplasm of breast (principal)
CPT/HCPCS: 77063; 77067

== ENCOUNTER 2023-09-17 11:31 | Outpatient (CLI) | payer OTHER, SELFPAY ==
--- NOTE | ~2023-09-17 | MM_ITS ---
EXAMINATION: MM screening sandy BI w bing HISTORY: Screening TECHNIQUE: Craniocaudal and mediolateral oblique 3-D tomosynthesis images were obtained and synthetic 2-D images were generated. CAD analysis was submitted and interpreted. COMPARISON: Comparison to multiple prior studies sequentially, with oldest reviewed study dated 02/2017. BREAST PARENCHYMAL COMPOSITION: Dense: The breasts are heterogeneously dense, which may obscure small masses FINDINGS: There is a new right breast asymmetry in the outer half of the right breast, middle third. The left breast is stable without evidence for malignancy. IMPRESSION: 1. New right breast asymmetry. 2. Additional mammographic views and possible breast ultrasound are recommended. BI-RADS Category 0: Incomplete: Needs additional imaging evaluation. Reviewed, dictated and finalized at location A. IMPRESSION: 1. New right breast asymmetry. 2. Additional mammographic views and possible breast ultrasound are recommended . BI-RADS Category 0: Incomplete: Needs additional imaging evaluation.
== END 2023-09-17 11:32 ==
LOC: MICIMG 11:32
PROVIDERS: PCP Physician Assistant; Visit Provider Physician Assistant
DX: Z12.31 Encounter for screening mammogram for malignant neoplasm of breast (principal); N64.89 Other specified disorders of breast
CPT/HCPCS: 77063; 77067

== ENCOUNTER 2023-10-08 08:58 | Outpatient (CLI) | payer MEDICARE, OTHER, SELFPAY ==
--- NOTE | ~2023-10-08 | MMUS_ITS ---
EXAMINATION: MM diagnostic sandy RT w bing, US breast RT limited HISTORY: New right breast mammographic asymmetry reported in outer half of right breast, middle third , on September 17, 2023 screening mammogram TECHNIQUE: Additional 3-D tomosynthesis images of the right breast were performed and synthetic 2-D i mages were generated. CAD analysis was submitted and interpreted. High resolution upper outer and low er-outer quadrant right breast ultrasound was performed. COMPARISON: Serial mammogram examinations dated back to November 07, 2020 FINDINGS: MAMMOGRAPHIC FINDINGS: There is chronic prominent heterogeneously dense stroma upper outer quadrant of the right breast in p articular. Occasional benign calcifications. No apparent interval suspicious mass or architectural distortion is noted. ULTRASOUND: 10:00 3 cm from nipple: In the deep soft tissues at 10:00 3 cm from the nipple there is an approximat andreea 7 x 8 mm irregular in completely circumscribed hypoechoic lesion with suggestion of some posterio r shadowing. Ultrasound-guided biopsy is recommended. IMPRESSION: 1. Indeterminate approximately 8 mm irregular circumscribed hypoechoic lesion with posterior shadowin g at 10:00 3 cm from nipple 2. Ultrasound-guided biopsy of 10:00 lesion is recommended BI-RADS category 4, suspicious findings. Dr. Gilse telephoned the report and ultrasound guided biopsy recommendation of right breast 10:00 lesi on on 10/08/2023 at 0957 hours to Mateusz Marshall. Reviewed, dictated and finalized at location A. IMPRESSION: 1. Indeterminate approximately 8 mm irregular circumscribed hypoechoic lesion w ith posterior shadowing at 10:00 3 cm from nipple 2. Ultrasound-guided biopsy of 10:00 lesion is recommended BI-RADS category 4, suspicious findings. Dr. Giles telephoned the report and ultrasound guided biopsy recommendation of r ight breast 10:00 lesion on 10/08/2023 at 0957 hours to Coy Marshall
== END 2023-10-08 08:59 ==
LOC: MICIMG 09:01
PROVIDERS: PCP Physician Assistant; Visit Provider Physician Assistant
DX: R92.8 Other abnormal and inconclusive findings on diagnostic imaging of breast (principal)
CPT/HCPCS: 76642; 77061; 77065; G0279

== ENCOUNTER 2024-04-30 08:49 | Outpatient (CLI) | payer MEDICARE, OTHER, SELFPAY ==
--- NOTE | ~2024-04-30 | MMUS_ITS ---
EXAMINATION: MM diagnostic sandy RT w bing, US breast RT limited HISTORY: 6 month follow up exam, status post biopsy TECHNIQUE: 3-D tomosynthesis images of the right breast were performed and synthetic 2-D images were generated. CAD analysis was submitted and interpreted. High resolution limited right breast ultrasoun d was performed. COMPARISON: 10/08/2023, 09/17/2023, 08/23/2022 BREAST PARENCHYMAL COMPOSITION:Dense: The breasts are heterogeneously dense, which may obscure small masses. FINDINGS: MAMMOGRAPHIC FINDINGS: Biopsy marker present in the upper, outer right breast. Suggestion of increased density in the upper outer right breast, but this may reflect asymmetric dense fibroglandular tissue. ULTRASOUND: No sonographic abnormality seen in the upper, outer right breast. IMPRESSION: No evidence for malignancy. Presumed postbiopsy change in the upper, outer right breast with asymmet sherly dense fibroglandular tissue. BI-RADS Category 2: Benign finding(s). Reviewed, dictated and finalized at location . [employer] IMPRESSION: No evidence for malignancy. Presumed postbiopsy change in the upper, outer rig ht breast with asymmetric dense fibroglandular tissue. BI-RADS Category 2: Benign finding(s).
== END 2024-04-30 08:50 | disposition home or self-care (01) ==
LOC: MICIMG 08:50
PROVIDERS: PCP Physician Assistant; Visit Provider Surgery
DX: R92.8 Other abnormal and inconclusive findings on diagnostic imaging of breast (principal)
CPT/HCPCS: 76642; 77061; 77065; G0279

== ENCOUNTER 2024-09-22 13:26 | Outpatient (CLI) | payer MEDICARE, OTHER, SELFPAY ==
--- NOTE | ~2024-09-22 | DEXA_ITS ---
Bone Density Report Name: CLAY ROSEN Age: 63 Sex: Female Ethnicity: White Date of : 1960 Indication: postmenopausal; screening for osteoporosis; Referring Provider: LINCOLN, RADHA Study: Bone densitometry was performed. Exam Date: September 22, 2024 Accession number: [id number] Bone Density: Region BMD T-score Z-score Classification AP Spine(L1-L4) 0.895 -1.4 0.4 Osteopenia Femoral Neck (Left) 0.651 -1.8 -0.2 Osteopenia Total Hip (Left) 0.839 -0.8 0.4 Normal Femoral Neck (Right) 0.650 -1.8 -0.2 Osteopenia Total Hip (Right) 0.805 -1.1 0.2 Osteopenia Total Hip Mean 0.822 -1.0 0.3 Normal World Health Organization criteria for BMD impression classify patients as: Normal (T-score at or above -1.0), Osteopenia (T-score between -1.0 and -2.5), or Osteoporosis (T-score at or below -2.5). 10-year Fracture Risk(1): Major Osteoporotic Fracture 9.8% Hip Fracture 1.3% Reported Risk Factors: [place] (), Neck BMD=0.651, BMI=26.2 (1) FRAX(R) Version 3.08. Fracture probability calculated for an untreated patient. Fracture probability may be lower if the patient has received treatment. Previous Exams: Region Exam Age BMD T-score BMD Change BMD Change Date g/cm2 vs Baseline vs Previous Total Hip(Left) 09/22/2024 63 0.839 -0.8 -0.036 (-4.1%) -0.036 (-4.1%) 05/23/2017 56 0.875 -0.6 Total Hip(Right) 09/22/2024 63 0.805 -1.1 -0.051 (-6.0%) -0.051 (-6.0%) 05/23/2017 56 0.856 -0.7 *Denotes significance at 95% confidence level, LSC for Total Hip = 0.027 g/cm2 Clinical Information Provided by Patient: Has used the following medications: Vitamin D, Calcium Patient maximum height was 68 Menopause Age: 51 No regular weight bearing exercise Onset of menses at age 13 Number of children 2 Impression: The patient has low bone mass, based on the Left Femoral Neck T-score. The patient has an estimated ten-year risk of hip fracture of 1.3% and an estimated ten-year risk of major fracture of 9.8%, based on the WHO FRAX algorithm. The BMD for the Total Hip(Left) decreased, changing by -4.1% since the last DXA exam. The BMD for the Total Hip(Right) decreased, changing by -6.0% since the last DXA exam. Discussion: BONE DENSITY IS LOW AT ONE OR MORE SKELETAL SITES. This patient's lowest T-score is low at one or more skeletal sites. It meets the World Health Organization's (WHO) criteria for ?low bone mass? (T-score between -1.0 and -2.5). The patient's 10-year risk of fracture as calculated by FRAX is less than the threshold where pharmacological therapy is recommended by the National Osteoporosis Foundation (NOF). However, all treatment decisions require clinical judgment and consideration of individual patient factors, including patient preferences, comorbidities, previous drug use, risk factors not captured in the FRAX model (e.g., frailty, falls, vitamin D deficiency, increased bone turnover, interval significant decline in bone density) and possible under or overestimation of fracture risk by FRAX. The patient should follow a healthful lifestyle (good nutrition with adequate calcium and vitamin D, and appropriate weight-bearing exercise). Follow-Up: Consider repeating this study in 2 years to reassess this patient's status, or sooner if there is some new clinical indication. Reported by: BECKY on 09/22/2024 2:22:00 PM. Reviewed, dictated and finalized at location AKonstantin STERN
--- OUTSIDE RECORDS SUMMARY | 2024-09-22 15:08 | XMS_ITS | Referral Summary ---
Author Organization [address] Address [address] [place] [id number] Care Team Providers Care Machine Cementer Name Role Phone Joanna Pacheco Primary Care Provider [phone]- [phone] Encounters Date Type Department Care Team Description 08/06/2024 11:00 AM THRESHING MACHINE OPERATOR Office Visit [address] [place] [phone] Joanna Pacheco PA Other fatigue (Primary Dx); Anxiety; BMI 27.0-27.9,adult 07/20/[address] [place] [phone] Joanna Pacheco PA 07/13/[address] [place] [phone] Joanna Pacheco PA 07/09/[address] [place] [phone] Joanna Pacheco PA Billing Question 07/06/2024 3:30 PM THRESHING MACHINE OPERATOR Office Visit [address] [place] [phone] Joanna Pacheco PA Other fatigue (Primary Dx); BMI 27.0-27.9,adult 06/24/2024 10:00 AM THRESHING MACHINE OPERATOR Office Visit [address] [place] [phone] Joanna Pacheco PA Anxiety (Primary Dx); Mixed hyperlipidemia; Prediabetes; Menopause; Breast cancer screening by mammogram; BMI 28.0-28.9,adult from Last 3 Months Allergies Active Allergy Reactions Criticality Noted Date Comments Ciprofloxacin Rash Medium 02/22/2022 Rash but was on Flagyl at the same time. Nitrofurantoin Stomach upset Low 08/03/2016 Sulfa (Sulfonamide Antibiotics) Rash Medium 07/09/2019 rash Medications calcium carbonate-vitami n D3 1500 mg (600 mg elemental) -200 units per tablet Take 1 tablet by mouth daily Active omeprazole (PriLOSEC) 10 mg capsule Take 1 capsule (10 mg total) by mouth daily Pt takes Q other day. Active meloxicam (MOBIC) 7.5 mg tabletIndication s:Hip pain, unspecified laterality Take 1 tablet (7.5 mg total) by mouth daily 90 tablet 1 4 Active busPIRone (BUSPAR) 10 mg tablet TAKE 1 TABLET(10 MG) BY MOUTH THREE TIMES DAILY 90 tablet 1 4 Active rosuvastatin (CRESTOR) 10 mg tablet TAKE 1 TABLET(10 MG) BY MOUTH DAILY 90 tablet 1 4 Active escitalopram (LEXAPRO) 10 mg tablet Take 1 tablet (10 mg total) by mouth daily 90 tablet 1 5 Active semaglutide (WEGOVY) 2.4 mg/0.75 mL auto-injectorInd ications:BMI 27.0-27.9,adult Inject 2.4 mg under the skin every 7 days 2 mL 2 5 Active semaglutide (WEGOVY) 2.4 mg/0.75 mL auto-injectorInd ications:BMI 27.0-27.9,adult Inject 2.4 mg under the skin every 7 days 5 08/30/19 25 Discontinu ed(Reorder ) Active Problems Problem Noted Date Diagnosed Date BMI 27.0-27.9,adult 06/24/2024 Assessment & Plan (08/06/2024 11:45 AM THRESHING MACHINE OPERATOR): Patient is getting to a nice weight with the help with the Wegovy 2.4. Continue with healthy eating exercise and continue to monitor. Assessment & Plan (07/19/2024 2:24 PM THRESHING MACHINE OPERATOR): Doing well with weight loss efforts with the Wegovy. Assessment & Plan (06/24/2024 12:38 PM THRESHING MACHINE OPERATOR): Weight/BMI is in healthy range. Continue healthy lifestyle to maintain. BMI is now in a more normal range. She has done great with the Wegovy. Has some mild side effects but wants to continue at the same dose. Continue with exercise and dietary monitoring. Will recheck in 3 months. Advised BMI around 27 is is acceptable and will begin to work on maintenance. Menopause 06/24/2024 Assessment & Plan (06/24/2024 12:37 PM THRESHING MACHINE OPERATOR): Check DEXA Breast cancer screening by mammogram 06/24/2024 Assessment & Plan (06/24/2024 12:37 PM THRESHING MACHINE OPERATOR): Mammogram order provided Prediabetes 01/09/2024 Assessment & Plan (06/24/2024 12:36 PM THRESHING MACHINE OPERATOR): Pre-diabetes/hyperglycemia is a precursor to Dm. Stressed importance of working on diet (decrease your simple sugars and one carbohydrate with each meal) and increase you exercise to achieve weight loss and this will help prevent you from progressing to diabetes. Recheck labs Assessment & Plan (03/30/2024 5:16 AM CDT): Pre-diabetes/hyperglycemia is a precursor to Dm. Stressed importance of working on diet (decrease your simple sugars and one carbohydrate with each meal) and increase you exercise to achieve weight loss and this will help prevent you from progressing to diabetes. Assessment & Plan (01/09/2024 2:39 PM CDT): Pre-diabetes/hyperglycemia is a precursor to Dm. Stressed importance of working on diet (decrease your simple sugars and one carbohydrate with each meal) and increase you exercise to achieve weight loss and this will help prevent you from progressing to diabetes. Patient would benefit from startingWegovy to assist in her weight loss effort. She does not have a history of pancreatitis. Reviewed risks benefits alternatives side effects and proper use. When approved she can bring it by the office so we can teach her how to use the pen. Reviewed dosing encouraged her to call in the 3rd pin so we can increase the dose as needed Left hip pain 10/12/2023 Assessment & Plan (10/12/2023 7:06 PM CDT): Patient has bilateral hip pain. Left hip has mild arthritis right hip is now feeling like it is wanting to give out. Willing to get an x-ray and do physical therapy. Orders given for both Hip pain 06/30/2023 Assessment & Plan (10/12/2023 7:06 PM CDT): Patient has bilateral hip pain. Left hip has mild arthritis right hip is now feeling like it is wanting to give out. Willing to get an x-ray and do physical therapy. Orders given for both Assessment & Plan (06/30/2023 3:08 PM THRESHING MACHINE OPERATOR): Patient has persistent hip pain. Samanta is helping. Will continue to monitor Hypertension, essential 04/16/2023 Assessment & Plan (03/30/2024 5:16 AM CDT): Bp is stable/in acceptable range for any co-morbidities. Encouraged to limit sodium intake and exercise for weight control. Currently stable without medications and with her continued weight loss will continue to monitor closely Assessment & Plan (01/09/2024 2:38 PM CDT): Bp is stable/in acceptable range for any co-morbidities. Encouraged to limit sodium intake and exercise for weight control. Currently managed without medication Assessment & Plan (10/12/2023 7:05 PM CDT): Bp is stable/in acceptable range for any co-morbidities. Encouraged to limit sodium intake and exercise for weight control. Currently managed without medication Assessment & Plan (06/30/2023 3:07 PM THRESHING MACHINE OPERATOR): Bp is stable/in acceptable range for any co-morbidities. Encouraged to limit sodium intake and exercise for weight control. Lisinopril 5 Assessment & Plan (06/03/2023 1:01 PM THRESHING MACHINE OPERATOR): Bp is stable/in acceptable range for any co-morbidities. Encouraged to limit sodium intake and exercise for weight control. Will continue to hold the lisinopril and manage without medication as her reading is much more stable without medication at this point. Continue you exercise daily as well as with weight loss both of these may be contributing to better control without medication Assessment & Plan (04/16/2023 8:47 PM CDT): Encouraged to limit sodium intake and exercise for weight control. Start lisinopril 5 mg 1 daily. Reviewed risks benefits alternatives side effects and proper use. 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 Using Xanax p.r.n. at nighttime Assessment & Plan (04/16/2023 8:42 PM CDT): Patient has good control of her anxiety with the Lexapro but noted bruxism with usage. Started Klonopin 0.5 mg HS. Feels like it helped decreased bruxism but was so sleepy she had trouble functioning the next day. Discussed decreasing the Klonopin half she could try it she also may pursue a mouth guard as she wants to continue the Lexapro. She may call at any time for refills of the Klonopin and or for assistance Assessment & Plan (03/07/2023 12:08 PM CDT): Patient noticed that she began grinding her teeth since starting Lexapro. Her symptoms are wonderful on the Lexapro. She is much less stressed interacting better with others so really does not want to stop the Lexapro but is concerned about her teeth health as she is beginning to grind down to the point where she may need to have a bridge replaced. She has not tried a guard but is worried that she would automatically take it out any ways. Discussed transitioning off the medicine or to a new medicine or use some type of counteracting medication. She is in favor of adding a medicine that may counteract the bruxism. Discussed BuSpar verses clonidine versus clonazepam. Reviewed risks benefits alternatives side effects and proper use of each. She is willing to try to clonazepam. Reviewed as a benzodiazepine has addictive and dependency characteristics but we will continue to use at a very low dose. She is to take it an hour before bedtime. Caution with driving as it will cause sedation. Avoid excessive alcohol uses can intensify the reaction. Follow-up in 4-6 weeks to reassess or sooner for any other problems or concerns Vaginal atrophy 12/19/2022 Assessment & Plan (12/23/2022 7:21 PM CDT): This is a significant, separately identifiable problem that was evaluated and managed on the same day as the wellness exam Signs and symptoms reveal vaginal atrophy. Discussed risks and benefits of topical vaginal estrogen. With shared decision making, we discussed the different types of topical atrophy. Plan is to begin Vagifem 10mcg daily for 2 weeks and then twice a week for the following two weeks. Patient was instructed to call office after one month for a refill. Reviewed with patient may take up to 6 months to see improvement. Gastroesophageal reflux disease without esophagi tis 11/30/2022 Assessment & Plan (01/09/2024 2:38 PM CDT): Continue omeprazole p.r.n. currently taking every other day but again weight loss will help decrease symptoms Assessment & Plan (10/12/2023 7:05 PM CDT): PPI p.r.n. Assessment & Plan (11/30/2022 10:09 PM CDT): Continue PPI p.r.n. Other fatigue 11/30/2022 Assessment & Plan (08/06/2024 11:45 AM THRESHING MACHINE OPERATOR): Patient has significant fatigue. It appears as though this was related to too low if caloric and protein intake on a daily basis. As she has increase his calories to at least 1200 about 60 g of protein she immediately felt better and has continue to log what she is eating and this is being very helpful for her. Her energy is increased. Her strength is increased. She is happy with the results Assessment & Plan (07/19/2024 2:24 PM THRESHING MACHINE OPERATOR): Patient has been doing great with her weight loss with the Wegovy. However, it appears as though she is not getting enough calories and protein on a daily basis and I think this is what is contributing to fatigue. Her labs are essentially stable. Strongly encouraged at least 70 g of protein and 1500 calories. Will see if this helps to raise her energy level but continue with her weight loss efforts. She is to call in a couple of weeks with an update Assessment & Plan (11/30/2022 10:26 PM CDT): This is a significant, separately identifiable problem that was evaluated and managed on the same day as the wellness exam Probably multifactorial. Check labs and followup to re-evaluate Her diet has changed so encouraged to work on making sure she is getting enough protein. Encouraged daily exercise. She can use Tylenol or ibuprofen p.r.n. at night.. Recheck CBC and a B12 labs. Will start Lexapro to see if some of the draggy this is actually related mild depression.. Reviewed risks benefits alternatives side effects and proper use of the Lexapro. Follow-up in 6-8 weeks and will see how she is doing. Will also have labs to review at that time Diverticulosis 07/13/2019 Assessment & Plan (07/13/2019 9:03 AM THRESHING MACHINE OPERATOR): History of diverticulitis -- Watch diet and increase fluids. Call if has sxs to avoid possible complications Anxiety 05/07/2017 Overview (09/02/2020): Mostly with driving Assessment & Plan (08/06/2024 11:44 AM THRESHING MACHINE OPERATOR): Mood is stable and probably a little improved with her calories. Continue Lexapro and BuSpar Assessment & Plan (06/24/2024 12:36 PM THRESHING MACHINE OPERATOR): Stable with Lexapro 10 and BuSpar 10 mg t.i.d. only requires a rare Xanax Assessment & Plan (03/30/2024 5:16 AM CDT): Stable with Lexapro 10 and BuSpar 10 t.i.d. p.r.n. Assessment & Plan (10/12/2023 7:04 PM CDT): Doing well with Lexapro 10. Can not really increase it because she has a bruxism. Uses Xanax p.r.n. for the bruxism Assessment & Plan (06/30/2023 3:08 PM THRESHING MACHINE OPERATOR): Stable with Lexapro 10. Still having some anxiety but I do not want to increase the Lexapro as it leads to bruxism. Willing to try BuSpar 10 mg t.i.d. p.r.n.. Will start with a half tab for a few weeks and titrate up the dose as tolerated Assessment & Plan (04/16/2023 8:42 PM CDT): Patient has good control of her anxiety with the Lexapro but noted bruxism with usage. Started Klonopin 0.5 mg HS. Feels like it helped decreased bruxism but was so sleepy she had trouble functioning the next day. Discussed decreasing the Klonopin half she could try it she also may pursue a mouth guard as she wants to continue the Lexapro. She may call at any time for refills of the Klonopin and or for assistance Assessment & Plan (03/07/2023 12:09 PM CDT): Patient's anxiety is very well controlled with the Lexapro. She wants to continue with the same dose. Assessment & Plan (12/19/2022 5:14 PM CDT): Continue Lexapro 10mg daily. Mood is stable. Advised patient to avoid chewing gum to avoid bruxism. Encouraged that she continue adequate dental care in the case of continuous jaw clenching and teeth grinding. Assessment & Plan (07/13/2019 9:06 AM THRESHING MACHINE OPERATOR): Pt is managing sxs with behavior modification. Plans to continue to monitor Mixed hyperlipidemia 05/07/2017 Assessment & Plan (06/24/2024 12:36 PM THRESHING MACHINE OPERATOR): Encouraged patient to follow low fat/low chol diet like the Mediterranean diet. Increase good fats in the diet. Increase exercise. Monitor labs as needed. Continue Crestor 10 Assessment & Plan (03/30/2024 5:16 AM CDT): Encouraged patient to follow low fat/low chol diet like the Mediterranean diet. Increase good fats in the diet. Increase exercise. Monitor labs as needed. Continue Crestor Assessment & Plan (01/09/2024 2:38 PM CDT): Encouraged patient to follow low fat/low chol diet like the Mediterranean diet. Increase good fats in the diet. Increase exercise. Continue with weight loss effort as it will also help to improved lipid panel. Continue Crestor 10 mg Assessment & Plan (10/12/2023 7:04 PM CDT): Encouraged patient to follow low fat/low chol diet like the Mediterranean diet. Increase good fats in the diet. Increase exercise. Monitor labs as needed. Continue Crestor 10 Assessment & Plan (06/30/2023 3:07 PM THRESHING MACHINE OPERATOR): Encouraged patient to follow low fat/low chol diet like the Mediterranean diet. Increase good fats in the diet. Increase exercise. Monitor labs as needed. Continue Crestor 10 Assessment & Plan (04/16/2023 8:42 PM CDT): Encouraged patient to follow low fat/low chol diet like the Mediterranean diet. Increase good fats in the diet. Increase exercise. Monitor labs as needed. Continue Crestor 10 Assessment & Plan (12/19/2022 5:14 PM CDT): Encouraged patient to follow low fat/low chol diet like the Mediterranean diet. Increase good fats in the diet. Increase exercise. Monitor labs as needed. Continue Crestor Assessment & Plan (11/30/2022 10:06 PM CDT): Encouraged patient to follow low fat/low chol diet like the Mediterranean diet. Increase good fats in the diet. Increase exercise. Monitor labs as needed. Continue Crestor Assessment & Plan (04/14/2022 8:22 PM CDT): Encouraged patient to follow low fat/low chol diet like the Mediterranean diet. Increase good fats in the diet. Increase exercise. Monitor labs as needed. Continue Crestor Assessment & Plan (03/14/2021 1:29 PM CDT): Encouraged patient to follow fat/low chol diet like the Mediterranean diet. Increase good fats in the diet. Increase exercise. Monitor labs as needed. Continue crestor Assessment & Plan (01/15/2021 8:15 PM CDT): Check labs Assessment & Plan (07/13/2019 9:05 AM THRESHING MACHINE OPERATOR): This is a significant, separately identifiable problem that was evaluated and managed on the same day as the wellness exam Patient is low risk for 10year CV risk (less than 4%). Reviewed with patient this doesn't include the LDL score, which is above 150. Discussed risks/benefits of statins. Start crestor. Reviewed risks, benefit, alternatives, side effects and proper use. Coupon provided. Recheck LFTs/Lipid panel in 3-4 months Vitamin D deficiency 05/07/2017 Assessment & Plan (10/12/2023 7:04 PM CDT): Supplement Assessment & Plan (11/30/2022 10:06 PM CDT): Supplement Resolved Problems Problem Noted Date Diagnosed Date Resolved Date Need for immunization against influenza 03/30/2024 06/24/2024 Assessment & Plan (03/30/2024 5:17 AM CDT): Flu vaccine updated in the office today BMI 31.0-31.9,adult 03/18/2024 06/24/19 25 Assessment & Plan (03/18/2024 1:04 PM CDT): BMI Follow-up includes: Discussed diet and exercising counseling. Need for vaccination for Strep pneumoniae 10/12/2023 01/09/2024 Assessment & Plan (10/12/2023 7:06 PM CDT): Pneumonia vaccine updated in the office today Welcome to Medicare preventive visit 10/12/2023 01/09/2024 Assessment & Plan (10/12/2023 7:07 PM CDT): Encouraged healthy lifestyle, good nutrition and exercise. Encouraged Calcium and Vitamin D and weight bearing exercise for bone health. Reviewed immunizations. Reviewed age appropirate screenings. Medicare Wellness Documentation is completed within the chart Positive depression screening 06/30/2023 10/12/2023 Assessment & Plan (06/30/2023 3:08 PM THRESHING MACHINE OPERATOR): Patient is being treated. Will continue to monitor BMI 33.0-33.9,adult 06/30/2023 03/18/20 24 Assessment & Plan (01/09/2024 2:38 PM CDT): Discussed the patient's BMI. The BMI is above average. BMI management plan is completed. BMI Follow-up includes: nutrition counseling, exercise counseling and education provided. Assessment & Plan (10/08/2023 8:47 AM CDT): Discussed the patient's BMI. The BMI is above average. BMI management plan is completed. BMI Follow-up includes: nutrition counseling, exercise counseling and education provided. Assessment & Plan (06/30/2023 3:07 PM THRESHING MACHINE OPERATOR): Discussed the patient's BMI. The BMI is above average. BMI management plan is completed. BMI Follow-up includes: nutrition counseling, exercise counseling and education provided. BMI 33.0-33.9,adult 06/03/2023 06/30/19 24 Assessment & Plan (06/03/2023 1:01 PM THRESHING MACHINE OPERATOR): Discussed the patient's BMI. The BMI is above average. BMI management plan is completed. BMI Follow-up includes: nutrition counseling, exercise counseling and education provided. Left hip pain 06/03/2023 06/30/2023 Assessment & Plan (06/03/2023 1:02 PM THRESHING MACHINE OPERATOR): Patient notes left hip pain that is radiating to the groin. Has not had an x-ray done. Does respond nicely to NSAIDs so she can continue with those. Follow-up pending the x-rays Need for Tdap vaccination 06/03/2023 Assessment & Plan (06/03/2023 1:02 PM THRESHING MACHINE OPERATOR): Tdap updated in the office today Obesity (BMI 30-39.9) 04/16/20232024 Assessment & Plan (03/30/2024 5:17 AM CDT): Discussed the patient's BMI. The BMI is above average. BMI management plan is completed. BMI Follow-up includes: nutrition counseling, exercise counseling and education provided. Doing great with Wegovy with weight loss effort. Will increase to 1 mg per week and continue to monitor closely Assessment & Plan (01/09/2024 2:40 PM CDT): Discussed the patient's BMI. The BMI is above average. BMI management plan is completed. BMI Follow-up includes: nutrition counseling, exercise counseling and education provided. Assessment & Plan (10/08/2023 8:47 AM CDT): Discussed the patient's BMI. The BMI is above average. BMI management plan is completed. BMI Follow-up includes: nutrition counseling, exercise counseling and education provided. Assessment & Plan (06/30/2023 3:06 PM THRESHING MACHINE OPERATOR): Insert obesity Assessment & Plan (06/03/2023 11:26 AM THRESHING MACHINE OPERATOR): Discussed the patients BMI: The BMI is above average BMI management is complete. BMI follow-up includes: Nutrition Counseling and education provided Assessment & Plan (04/16/2023 8:44 PM CDT): Discussed the patient's BMI. The BMI is above average. BMI management plan is completed. BMI Follow-up includes: nutrition counseling, exercise counseling and education provided. Need for influenza vaccination 04/16/2023 06/30/2023 BMI 33.0-33.9,adult 12/19/2022 06/03/20 Assessment & Plan (04/16/2023 8:43 PM CDT): Discussed the patient's BMI. The BMI is above average. BMI management plan is completed. BMI Follow-up includes: nutrition counseling, exercise counseling and education provided. Assessment & Plan (12/19/2022 9:35 AM CDT): Discussed the patient's BMI. The BMI is above average. BMI management plan is completed. BMI Follow-up includes: nutrition counseling, exercise counseling and education provided. BMI 32.0-32.9,adult 12/19/2022 04/16/20 Assessment & Plan (12/19/2022 9:35 AM CDT): Discussed the patient's BMI. The BMI is above average. BMI management plan is completed. BMI Follow-up includes: nutrition counseling, exercise counseling and education provided. Numbness and tingling of both legs 12/19/2022 10/12/2023 Assessment & Plan (12/19/2022 5:15 PM CDT): Symptoms appear to have since resolved with recent interventions. Encouraged to continue sleeping with a pillow and maintaining adequate physical activity. Encounter for gynecological examination (general) (routine) with abnormal findings 12/19/2022 12/23/2022 Assessment & Plan (12/19/2022 5:56 PM CDT): Continue healthy lifestyle with weight bearing exercise and good nutrition. Supplement vitamin D and calcium as needed. Reviewed immunizations and recommended screenings. Obesity (BMI 30-39.9) 11/15/20222022 Assessment & Plan (11/15/2022 8:10 AM CDT): Discussed the patient's BMI. The BMI is above average. BMI management plan is completed. BMI Follow-up includes: nutrition counseling, exercise counseling and education provided. BMI 32.0-32.9,adult 11/15/2022 12/20/19 Assessment & Plan (11/15/2022 8:10 AM CDT): Discussed the patient's BMI. The BMI is above average. BMI management plan is completed. BMI Follow-up includes: nutrition counseling, exercise counseling and education provided. Obesity (BMI 30.0-34.9) 04/14/2022 06/0 06/2022 Assessment & Plan (04/14/2022 8:23 PM CDT): Discussed the patient's BMI. The BMI is above average. BMI management plan is completed. BMI Follow-up includes: nutrition counseling, exercise counseling and education provided. Flu vaccine need 04/14/2022 11/30/2022 Assessment & Plan (04/14/2022 8:23 PM CDT): Flu vaccine updated today Abdominal pain 03/11/2022 03/11/2022 LLQ abdominal pain 03/11/2022 Assessment & Plan (03/11/2022 10:50 AM CDT): Patient presents today with left lower quadrant abdominal pain. She has any distant history of diverticulitis. She she has localized tenderness to the area but it is any guarding or rebound tenderness. No peritoneal signs. No fever chills or sweats reviewed discussed imaging to confirm a diverticulitis flare verses empirically treating. She today she would prefer to start antibiotics but was provided with warning signs on the presentation of progression diverticulitis and perforated colon which is the biggest concern. If these occur she is to immediately go to the ER. Will send Augmentin 875 b.i.d. for 10 days and Flagyl 500 t.i.d. for 10. Observe bland diet. Push fluids and monitor for signs of dehydration. Slow progress diet to brat diet as tolerated she is to call immediately with increased concerns were to the ER as discussed above. BMI 31.0-31.9,adult 02/22/2022 11/16/19 23 Assessment & Plan (04/14/2022 8:23 PM CDT): Discussed the patient's BMI. The BMI is above average. BMI management plan is completed. BMI Follow-up includes: nutrition counseling, exercise counseling and education provided. Assessment & Plan (02/22/2022 11:08 AM CDT): Obesity is unchanged. Discussed the patient's BMI. The BMI is above average. BMI management plan is completed. BMI Follow-up includes: nutrition counseling, exercise counseling and education provided. Obesity (BMI 30-39.9) 07/10/20212021 Assessment & Plan (07/10/2021 7:59 AM THRESHING MACHINE OPERATOR): Obesity is unchanged. Discussed the patient's BMI. The BMI is above average. BMI management plan is completed. BMI Follow-up includes: nutrition counseling, exercise counseling and education provided. BMI 31.0-31.9,adult 07/10/2021 02/23/20 22 Assessment & Plan (07/10/2021 7:59 AM THRESHING MACHINE OPERATOR): Obesity is unchanged. Discussed the patient's BMI. The BMI is above average. BMI management plan is completed. BMI Follow-up includes: nutrition counseling, exercise counseling and education provided. Plantar fasciitis of left foot 07/10/2021 10/12/2023 Assessment & Plan (07/10/2021 9:04 AM THRESHING MACHINE OPERATOR): Symptoms appear to be most consistent with plantar fasciitis. Encouraged icing anti-inflammatories and stretching. Provided different ways of stretching the area. If symptoms worsen or do not improve will consider referral to Podiatry as may need to be immobilized versus injection versus other modalities. Also encouraged a new pair shoes to provide more support. She states she has 1 on order. Visual changes 07/10/2021 10/12/2023 Assessment & Plan (07/10/2021 9:06 AM THRESHING MACHINE OPERATOR): Patient has noted visual changes over the last 6-8 weeks. She was evaluated in [place] and told had a leak behind the eye she has noticed continued floaters and flashes her so he can as well as decrease in acuity. Stressed importance of following up with Ophthalmology. Provided options and she prefers to be seen in [place]. Provided the name of Dr. abbott her with his office contact. She may call his office if she has trouble getting in the next few weeks she is to call our office to call on her behalf. Stressed the importance of seen him now to avoid any further sequela. Obesity (BMI 30-39.9) 03/14/20212021 Assessment & Plan (03/14/2021 11:22 AM CDT): Obesity is unchanged. Discussed the patient's BMI. The BMI is above average. BMI management plan is completed. BMI Follow-up includes: nutrition counseling, exercise counseling and education provided. BMI 32.0-32.9,adult 03/14/2021 03/18/20 Assessment & Plan (03/14/2021 11:22 AM CDT): Obesity is unchanged. Discussed the patient's BMI. The BMI is above average. BMI management plan is completed. BMI Follow-up includes: nutrition counseling, exercise counseling and education provided. Lumbar back pain 03/14/2021 10/12/2023 Assessment & Plan (03/14/2021 1:30 PM CDT): Encouraged NSAIDS (if able to safely tolerate) or Tylenol. Topical preparations like Lidocaine patches, Biofreeze, ICYHOT etc as needed. Heat, stretching Avoid long periods of sitting/laying. Encouraged PT. Followup if has any problems controlling bowels or bladder or if sxs worsen. Encounter for well woman abiola m with routine gynecological exam 03/14/2021 10/12/2023 Assessment & Plan (12/19/2022 5:53 PM CDT): Continue healthy lifestyle with weight bearing exercise and good nutrition. Supplement vitamin D and calcium as needed. Reviewed immunizations and recommended screenings. Assessment & Plan (03/14/2021 1:29 PM CDT): Refer to Dr. Hughes for colonoscopy. Cervical cancer screening 03/14/2021 Assessment & Plan (03/14/2021 1:30 PM CDT): Pap smear and HPV obtained. Will await results to determine follow-up. Frequency of urination 01/15/202110/11 Assessment & Plan (01/15/2021 8:16 PM CDT): Pt presents with dysuria. Urine dip completed. Send urine culture. Antibiotic to pharmacy. Reviewed bladder care. Diabetes mellitus screening 01/15/2021 10/12/2023 Assessment & Plan (01/15/2021 8:15 PM CDT): Check labs Obesity (BMI 30-39.9) 01/11/20212020 Assessment & Plan (01/11/2021 1:36 PM CDT): Obesity is unchanged. Discussed the patient's BMI. The BMI is above average. BMI management plan is completed. BMI Follow-up includes: nutrition counseling, exercise counseling and education provided. BMI 31.0-31.9,adult 01/11/2021 03/14/20 21 Assessment & Plan (01/15/2021 8:15 PM CDT): Obesity is unchanged. Discussed the patient's BMI. The BMI is above average. BMI management plan is completed. BMI Follow-up includes: nutrition counseling, exercise counseling and education provided. Eczema 09/14/2020 10/12/2023 Assessment & Plan (09/14/2020 12:38 PM CDT): Patient was given samples of cerave. She was advised to discontinue benadryl and start zyrtec at hs. She will use steroid cream bid and apply cerave. She will f/u in next week if not improving, sooner if worsening. Obesity (BMI 30-39.9) 09/02/20202020 Skin lesion 09/02/2020 10/12/2023 Assessment & Plan (01/15/2021 8:16 PM CDT): Triamcinolone to pharm Assessment & Plan (09/14/2020 12:38 PM CDT): Patient was given samples of cerave. She was advised to discontinue benadryl and start zyrtec at hs. She will use steroid cream bid and apply cerave. She will f/u in next week if not improving, sooner if worsening. Assessment & Plan (09/02/2020 1:34 PM CDT): Advised on wound care. advised follow-up in the next week if not improving, sooner if worsening. BMI 31.0-31.9,adult 05/25/2020 01/12/20 21 Assessment & Plan (09/02/2020 10:32 AM CDT): Obesity is unchanged. Discussed the patient's BMI. The BMI is above average. BMI management plan is completed. BMI Follow-up includes: nutrition counseling, exercise counseling and education provided. Assessment & Plan (05/25/2020 3:23 PM THRESHING MACHINE OPERATOR): Obesity is unchanged. Discussed the patient's BMI. The BMI is above average. BMI management plan is completed. BMI Follow-up includes: nutrition counseling, exercise counseling and education provided. BMI 30.0-30.9,adult 07/13/2019 05/25/20 20 Assessment & Plan (07/13/2019 9:06 AM THRESHING MACHINE OPERATOR): Obesity is unchanged. Discussed the patient's BMI. The BMI is above average. BMI management plan is completed. BMI Follow-up includes: nutrition counseling, exercise counseling and education provided. Annual physical exam 07/13/2019 04/27/2 024 Assessment & Plan (11/30/2022 10:06 PM CDT): Encouraged healthy lifestyle, good nutrition and exercise. Encouraged Calcium and Vitamin D and weight bearing exercise for bone health. Reviewed immunizations Reviewed age appropirate screenings. Assessment & Plan (03/14/2021 1:31 PM CDT): Encouraged healthy lifestyle, good nutrition and exercise. Encouraged Calcium and Vitamin D and weight bearing exercise for bone health. Reviewed immunizations Reviewed age appropirate screenings. Needs Tdap -- pt wants to defer until next visit. Assessment & Plan (07/13/2019 9:05 AM THRESHING MACHINE OPERATOR): Encouraged healthy lifestyle, good nutrition and exercise. Encouraged Calcium and Vitamin D and weight bearing exercise for bone health. Reviewed immunizations Reviewed age appropirate screenings. Breast cancer screening by mammogram 07/13/2019 10/12/2023 Assessment & Plan (04/16/2023 8:43 PM CDT): Mammogram order provided Assessment & Plan (04/14/2022 8:22 PM CDT): Mammogram order provided Assessment & Plan (07/13/2019 9:06 AM THRESHING MACHINE OPERATOR): Mammogram order provided Influenza vaccine refused 07/13/2019 Assessment & Plan (07/13/2019 9:06 AM THRESHING MACHINE OPERATOR): Encouraged vaccine. Reviewed risks/ benefits. Patient refuses and accepts risks. Chronic kidney disease (CKD) , stage III (moderate) 07/13/2019 07/17/2020 Assessment & Plan (07/13/2019 9:08 AM THRESHING MACHINE OPERATOR): This is a significant, separately identifiable problem that was evaluated and managed on the same day as the wellness exam This is the first time her GFR has dropped below 60. Avoid nephrotoxic drugs including NSAIDs. Monitor labs. Diverticulitis 06/24/2018 10/12/2023 Overview (09/02/2020): 06/2018 [facility] Assessment & Plan (04/14/2022 8:23 PM CDT): Patient has had multiple episodes of diverticulitis. She was just recently treated with antibiotics. She is still having some pressure on the left side and feels like it has not completely resolved. Will refer to Dr. Hughes for further evaluation and await her recommendation. Reminded patient if she has increase in pain blood in her stool she is to call and we will extend her antibiotic. She is in agreement with the plan. Assessment & Plan (05/25/2020 11:15 PM THRESHING MACHINE OPERATOR): Complete flagyl and cipro. BRAT diet and slowly progress. Keep hydrated. Reviewed diverticulitis diet. Refer to GI as 2-3 time she has had diverticulitis in the last year. Body mass index (BMI) of 30.0-30.9 in adult 03/20/2017 03/14/2021 Assessment & Plan (01/11/2021 1:35 PM CDT): Obesity is unchanged. Discussed the patient's BMI. The BMI is above average. BMI management plan is completed. BMI Follow-up includes: nutrition counseling, exercise counseling and education provided. Assessment & Plan (09/02/2020 10:32 AM CDT): Weight/BMI is in healthy range. Continue healthy lifestyle to maintain. Assessment & Plan (05/25/2020 11:16 PM THRESHING MACHINE OPERATOR): Obesity is unchanged. Discussed the patient's BMI. The BMI is above average. BMI management plan is completed. BMI Follow-up includes: nutrition counseling, exercise counseling and education provided. Other obesity due to excess calories 03/20/2017 04/14/2022 Immunizations Immunization Administration Dates Next Due Influenza, Quadrivalent, Spl it, Preservative Free, Intramuscular 04/16/2023,03/20/2022,05/02/2021,04/13,04/28/2018 Influenza, Trivalent, High D ose, Split, Preservative Free, Intramuscular 03/18/2024 Influenza, Unspecified 06/17/2024(Deferred: Jennie ent Refused) Pfizer SARS-CoV-2 Monovalent Vaccination (12+ Yrs) PURPLE 09/10/2020,08/19/2020 Pneumococcal Conjugate Pcv20 10/08/2023 Tdap 06/03/2023 Social History Tobacco Use Types Packs/Day Years Used Date Smoking Tobacco: Never Smokeless Tobacco: Never Tobacco Cessation:Counseling Given: Not Answered Alcohol Use Standard Drinks/Week Comments Yes 0 (1 standard drink = 0.6 oz pur e alcohol) AUDIT-C Answer Date Recorded Q1: How often do you have a drink containing alc ohol? 2-3 times a week 07/06/2024 Average Number of Drinks Not on file 025 Frequency of Binge Drinking Not on file 06/18 PHQ-2 Answer Date Recorded PHQ-2 Total Score (If total score is 3 or more points, staff should administer the PHQ-9) 0 08/06/2024 Personal Safety Answer Date Recorded Have you ever been in or are you currently in a harmful physical or emotional relationship or is someone making you feel afraid or unsafe? Denies 04/22/2024 Comments No Sex and Gender Information Value Date Recorded Sex Assigned at Not on file Legal Sex Female 12:11 AM THRESHING MACHINE OPERATOR Gender Identity Female 05/23/2020 1:48 PM THRESHING MACHINE OPERATOR Sexual Orientation Straight 05/23/2020 1: 48 PM THRESHING MACHINE OPERATOR Occupation Industry Job Start Date Job End Date Retired Not on file Not on file Not on file Last Filed Vital Signs Vital Sign Reading Time Taken Comments Blood Pressure 116/80 08/06/2024 11:04 AM THRESHING MACHINE OPERATOR Pulse 80 08/06/2024 11:04 AM THRESHING MACHINE OPERATOR Temperature 36.4 C (97.5 F) 08/06/2024 11:04 AM THRESHING MACHINE OPERATOR Respiratory Rate 18 05/05/2024 5:55 PM THRESHING MACHINE OPERATOR Oxygen Saturation 98% 08/06/2024 11:04 AM THRESHING MACHINE OPERATOR Inhaled Oxygen Concentration - - Weight 80.3 kg (177 lb 1.6 oz) 08/06/2024 11:04 AM THRESHING MACHINE OPERATOR Height 170.2 cm (5' 7 ) 08/06/2024 11:04 AM THRESHING MACHINE OPERATOR Body Mass Index 27.74 08/06/2024 11:04 AM THRESHING MACHINE OPERATOR Plan of Treatment Not on file Procedures Procedure Name Priority Date/Time Associated Diagnosis Comments HM COLONOSCOPY Routine 08/27/2024 7:15 AM CDT VITAMIN D 25 HYDROXY Routine 06/24/2024 8:44 AM THRESHING MACHINE OPERATOR Vitamin D deficiency Annual physical exam TSH Routine 06/24/2024 8:41 AM THRESHING MACHINE OPERATOR Annual physical exam Other fatigue HEMOGLOBIN A1C Routine 06/24/2024 8:41 AM THRESHING MACHINE OPERATOR Prediabetes Annual physical exam LIPID PANEL Routine 06/24/2024 8:41 AM THRESHING MACHINE OPERATOR Mixed hyperlipidemia Annual physical exam COMPREHENSIVE METABOLIC PANEL Routine 06/24/2024 8:41 AM THRESHING MACHINE OPERATOR Hypertension, essential Annual physical exam MAMMOGRAPHY Routine 04/30/2024 3:05 PM THRESHING MACHINE OPERATOR THINPREP CUSTODIAL MANAGER PAP (IMAGE GUIDED) LIQUID-BASED PREP Routine 05/07/2017 2:00 PM THRESHING MACHINE OPERATOR from Last 3 Months or Most Recently Relevant to Health Maintenance Results * COLONOSCOPY (08/27/2024 7:15 AM CDT) Scribed Colonoscopy Normal us Historical Provider HEALTH MAINTENANCE Final Result * Vitamin D 25 hydroxy (06/24/2024 8:44 AM THRESHING MACHINE OPERATOR) Vitamin D 25-OH 91 30 - 100 ng/mL [facility] Comment: Vitamin D Status 25-OH Vitamin D: Deficiency: <20 ng/mL Insufficiency: 20 - 29 ng/mL Optimal: > or = 30 ng/mL For 25-OH Vitamin D testing on patients on D2-supplementation and patients for whom quantitation of D2 and D3 fractions is required, the Quest[facility]ure[facility](TM) 25-OH VIT D, (D2,D3), LC/MS/MS is recommended: order code 39408 (patients >2yrs). See Note 1 Note 1 For additional information, please refer to http://education.Urakkamaailma.fi/faq/GEE704 (This link is being provided for informational/ educational purposes only.) Blood 06/24/2024 8:44 AM THRESHING MACHINE OPERATOR 06/24/2024 8:44 AM THRESHING MACHINE OPERATOR Result [facility] Joanna GAYLE LAB BLOOD ORDERABLES Final Result Performing Organization Address [facility] de Phone Number [facility] [address] [place] [address] * TSH (06/24/2024 8:41 AM THRESHING MACHINE OPERATOR) Pathologist [facility] TSH 1.61 0.40 - 4.50 mIU/L [facility] exa Blood 06/24/2024 8:41 AM THRESHING MACHINE OPERATOR 06/24/2024 8:42 AM THRESHING MACHINE OPERATOR Narrative [facility] - 06/25/2024 6:12 AM THRESHING MACHINE OPERATOR FASTING:YES FASTING: YES Joanna GAYLE LAB BLOOD ORDERABLES Final Result Performing Organization Address [facility] de Phone Number [facility] [address] [place] [address] * Hemoglobin A1c (06/24/2024 8:41 AM THRESHING MACHINE OPERATOR) Pathologist [facility] Hgb A1C 5.5 <5.7 % [facility] Comment: For the purpose of screening for the presence of diabetes: <5.7% Consistent with the absence of diabetes 5.7-6.4% Consistent with increased risk for diabetes (prediabetes) > or =6.5% Consistent with diabetes This assay result is consistent with a decreased risk of diabetes. Currently, no consensus exists regarding use of hemoglobin A1c for diagnosis of diabetes in children. According to [place] Diabetes Association (ADA) guidelines, hemoglobin A1c <7.0% represents optimal control in non- diabetic patients. Different metrics may apply to specific patient populations. Standards of Medical Care in Diabetes(ADA). Blood 06/24/2024 8:41 AM THRESHING MACHINE OPERATOR 06/24/2024 8:42 AM THRESHING MACHINE OPERATOR Narrative [facility] - 06/25/2024 6:12 AM THRESHING MACHINE OPERATOR FASTING:YES FASTING: YES Joanna GAYLE LAB BLOOD ORDERABLES Final Result [facility] [address] [place] [address] * (ABNORMAL) Lipid panel (06/24/2024 8:41 AM THRESHING MACHINE OPERATOR) Cholesterol 104 <200 mg/dL [facility] HDL 47(L) > OR = 50 mg/dL [facility] Triglycerides 87 <150 mg/dL [facility] LDL 40 mg/dL (calc) [facility] Comment: Reference range: <100 Desirable range <100 mg/dL for primary prevention; <70 mg/dL for patients with CHD or diabetic patients with > or = 2 CHD risk factors. LDL-C is now calculated using the Peace calculation, which is a validated novel method providing better accuracy than the Friedewald equation in the estimation of LDL-C. Lui JONES et al. MAYCO. 2013;310(19): 8766-3303 (http://education.Urakkamaailma.fi/faq/ABL292) Chol/HDL ratio 2.2 <5.0 (calc) [facility] Non-HDL, (LDL+VLDL) 57 <130 mg/dL (calc) [facility] Comment: For patients with diabetes plus 1 major ASCVD risk factor, treating to a non-HDL-C goal of <100 mg/dL (LDL-C of <70 mg/dL) is considered a therapeutic option. Blood 06/24/2024 8:41 AM THRESHING MACHINE OPERATOR 06/24/2024 8:42 AM THRESHING MACHINE OPERATOR Narrative [facility] - 06/25/2024 6:12 AM THRESHING MACHINE OPERATOR FASTING:YES FASTING: YES Joanna GAYLE LAB BLOOD ORDERABLES Final Result [facility] [address] [address] [place] [address] * (ABNORMAL) Comprehensive metabolic panel (06/24/2024 8:41 AM THRESHING MACHINE OPERATOR) Pathologist [facility] Glucose 84 65 - 99 mg/dL [facility] Comment: Fasting reference interval BUN 17 7 - 25 mg/dL [facility] Creatinine 1.10(H) 0.50 - 1.05 mg/dL [facility] eGFR 56(L) > OR = 60 mL/min/1.7 3m2 [facility] BUN/creat ratio 15 6 - 22 (calc) [facility] Sodium 141 135 - 146 mmol/L [facility] Potassium, pl 4.3 3.5 - 5.3 mmol/L [facility] Chloride 105 98 - 110 mmol/L [facility] CO2 26 20 - 32 mmol/L [facility] Calcium 9.8 8.6 - 10.4 mg/dL [facility] Protein, sr 6.9 6.1 - 8.1 g/dL [facility] Albumin 4.5 3.6 - 5.1 g/dL [facility] GLOBULIN 2.4 1.9 - 3.7 g/dL (calc) [facility] Alb/glob ratio 1.9 1.0 - 2.5 (calc) [facility] Bilirubin, total 0.4 0.2 - 1.2 mg/dL [facility] Alk phos 25(L) 37 - 153 U/L [facility] AST 21 10 - 35 U/L [facility] ALT (SGPT) 17 6 - 29 U/L [facility] Blood 06/24/2024 8:41 AM THRESHING MACHINE OPERATOR 06/24/2024 8:42 AM THRESHING MACHINE OPERATOR Narrative [facility] - 06/25/2024 6:12 AM THRESHING MACHINE OPERATOR FASTING:YES FASTING: YES Joanna GAYLE LAB BLOOD ORDERABLES Final Result [facility] [address] [address] [phone] * MAMMOGRAPHY (04/30/2024 3:05 PM THRESHING MACHINE OPERATOR) Mammography Normal Impressions Kely Fried MA - 04/30/2024 3:05 PM THRESHING MACHINE OPERATOR Bi-Rads Category 2- Benign findings Historical Provider HEALTH MAINTENANCE Edited Result - Final * ThinPrep Gynecologic Pap Test (Image-guided), Liquid-based Preparation (05/07/2017 2:00 PM THRESHING MACHINE OPERATOR) CLINICAL INFORMATION [facility] Comment:Information not prov ided LMP: [facility] Comment:INFORMATION NOT PROV IDED PREV. PAP: [facility] Comment:INFORMATION NOT PROV IDED PREV. BX: [facility] Comment:INFORMATION NOT PROV IDED SOURCE: [facility] Comment:Information not prov ided STATEMENT OF ADEQUACY: [facility] Comment:SATISFACTORY FOR BRANDY LUATION INTERPRETATION/RESU LT: [facility] Comment: Negative for intraepithelial lesion or malignancy. Atrophic pattern; predominantly parabasal cells COMMENT: [facility] Comment: This Pap test has been evaluated with computer assisted technology. ADMINISTRATOR HEALTH CARE FACILITY: [facility] HISTORICAL RESULTS Comment: MLK, CT(ASCP) CT screening location: [place] [address] [place] [address] 05/07/2017 2:00 PM THRESHING MACHINE OPERATOR 05/16/2017 7:55 PM THRESHING MACHINE OPERATOR Narrative [facility] HISTOR[facility] RESULTS - 05/16/2017 7:42 PM THRESHING MACHINE OPERATOR FASTING: UNKNOWN PERFORMING LAB: [place] [place] [address] [facility] [phone] Monty Pugh MD Historical Provider LAB PATHOLOGY ORDERABLES Final Result [facility] HISTORICAL RESULTS from Last 3 Months or Most Recently Relevant to Health Maintenance Insurance [facility] [id number] [facility] MEDICARE [place] [phone] Care Teams Machine Cementer Relationship Specialty Start Date End Date Joanna Pacheco [place] [address] [address] PCP - General Internal Medicine 03/26/19
--- OUTSIDE RECORDS SUMMARY | 2024-09-22 15:08 | XMS_ITS | Clinical Summary ---
Author Organization [facility] Address [address] [place] [address] Care Team Providers Care Welding Systems And Equipment Repairer Name Role Phone Mary Paredes MD Primary Care Provider + Source Comments [facility],non-owned Affiliates and Associated Physician Practices is amultiple site organization consisting of ambulatory clinics and hospital sitesin [place], [place], [place] and [place]. This disclosure is being madepursuant to the Care Everywhere program and may not contain all information available regarding this patient. Last updated 18.[facility] Allergies Active Allergy Reactions Criticality Noted Date Comments Nitrofurantoin GI Discomfort 08/03/2016 Sulfa Drugs 08/01/2016 Medications Be aware that medications may not be up to date on this document. Always verify current medications with the patient. No known medications Social History Tobacco Use Types Packs/Day Years Used Date Smoking Tobacco: Never Sex and Gender Information Value Date Recorded Sex Assigned at Not on file Gender Identity Not on file Sexual Orientation Not on file Last Filed Vital Signs Vital Sign Reading Time Taken Comments Blood Pressure 136/82 08/01/2016 11:53 AM HOTBED LEVER OPERATOR Pulse 67 08/01/2016 11:53 AM HOTBED LEVER OPERATOR Temperature 37 C (98.6 F) 08/01/2016 11:53 AM HOTBED LEVER OPERATOR Respiratory Rate 16 08/01/2016 11:53 AM HOTBED LEVER OPERATOR Oxygen Saturation 98% 08/01/2016 11:53 AM HOTBED LEVER OPERATOR Inhaled Oxygen Concentration - - Weight 81.6 kg (180 lb) 08/01/2016 11:53 AM HOTBED LEVER OPERATOR Height 172.7 cm (5' 8 ) 08/01/2016 11:53 AM HOTBED LEVER OPERATOR Body Mass Index 27.37 08/01/2016 11:53 AM HOTBED LEVER OPERATOR Plan of Treatment Health Maintenance Due Date Last Done Comments BONE DENSITY TESTING 1960 COLOGUARD (AGES 45-75) - COL ON CA SCREENING 1958 COLON MONITORING 1958 COLONOSCOPY - COLON CA SCREENING 1958 CT COLONOGRAPHY - COLON CA SCREENING 1960 Colorectal Cancer Screening 1958 FIT - COLON CA SCREENING 1958 FLEX SIG - COLON CA SCREENING 1958 LIPID TESTING 1960 MAMMOGRAM 1960 PAP SMEAR 1958 HIV SCREENING 1973 HEPATITIS C SCREENING 09/20/1976 DTAP/TDAP/TD VACCINES (1 - Tdap) 1977 PNEUMOCOCCAL VACCINE 50+ (1 of 1 - PCV) 2008 ZOSTER VACCINE (1 of 2) 2008 COVID-19 VACCINE ( - 2023-2 5 season) 2024 DEPRESSION SCREENING 06/17/2024 INFLUENZA VACCINE (Season Ended) 2025 Respiratory Syncytial Virus (RSV) Vaccine Pt: or over 60 yrs (1 - 1-dose 75+ series) 2033 HEPATITIS B VACCINE Aged Out No longe r eligible based on patient's age to complete this topic HIB VACCINE Aged Out No longer eligi ble based on patient's age to complete this topic HPV VACCINE Aged Out No longer eligi ble based on patient's age to complete this topic MENINGOCOCCAL (Group B) VACC INE SHARED DECISION-MAKING Aged Out No longer eligibl e based on patient's age to complete this topic MENINGOCOCCAL GROUPS A/C/Y/W VACCINE Aged Out No longer eligible b ased on patient's age to complete this topic Care Teams Welding Systems And Equipment Repairer Relationship Specialty Start Date End Date Mary Paredes MD [address] [place] [address] PCP - General Family Medicine 08/01/16
--- OUTSIDE RECORDS SUMMARY | 2024-09-22 15:08 | XMS_ITS | Encounter Summary ---
Author Organization [facility] Care Team Providers Care Station Operator Name Role Phone Joanna Pacheco Primary Care Provider [phone]- [phone] Encounter Details Date Type Department Care Team (Latest Contact Info) Description 05/31/2017 Orders Only [facility] CLINCONV ProviderKristofer MD [address] [place] [id number] Social History Tobacco Use Types Packs/Day Years Used Date Smoking Tobacco: Never Assessed Comments Unknown Sex and Gender Information Value Date Recorded Sex Assigned at Not on file Legal Sex Female 12:11 AM RESIDENTIAL REAL ESTATE APPRAISER Gender Identity Female 05/23/2020 1:48 PM RESIDENTIAL REAL ESTATE APPRAISER Sexual Orientation Straight 05/23/2020 1: 48 PM RESIDENTIAL REAL ESTATE APPRAISER documented as of this encounter Plan of Treatment Not on file documented as of this encounter Procedures Procedure Name Priority Date/Time Associated Diagnosis Comments PROCEDURE - RESULT 06/20/2017 12 :00 AM RESIDENTIAL REAL ESTATE APPRAISER documented in this encounter Results * PROCEDURE - RESULT (06/20/2017 12:00 AM RESIDENTIAL REAL ESTATE APPRAISER) Narrative 06/20/2017 12:00 AM RESIDENTIAL REAL ESTATE APPRAISER Ordered by an unspecified provider. Historical Provider Final Res ult documented in this encounter Visit Diagnoses Not on filedocumented in this encounter Additional Health Concerns Infection Onset Date Last Indicated Resolved Time COVID: Suspected 05/05/2024 05/05/2024 05/05/2024 6:39 PM RESIDENTIAL REAL ESTATE APPRAISER documented as of this encounter Care Teams Station Operator Relationship Specialty Start Date End Date Joanna Pacheco PA [address] [place], [place] [id number] PCP - General Internal Medicine 03/26/19 documented as of this encounter
--- OUTSIDE RECORDS SUMMARY | 2024-09-22 15:08 | XMS_ITS | Clinical Summary ---
Author Organization [facility] [address] [facility] Address [address] [place] [address] Care Team Providers Care Relay Dispatcher Name Role Phone Joanna Pacheco Primary Care Provider +1- [phone] Allergies Active Allergy Reactions Criticality Noted Date [...] 06/24/2024 Assessment & Plan (08/06/2024 11:45 AM CHICKEN BONER): Patient is getting to a nice weight with the help with the Wegovy 2.4. Continue with healthy eating exercise and continue to monitor. Assessment & Plan (07/19/2024 2:24 PM CHICKEN BONER): Doing well with weight loss efforts with the Wegovy. Assessment & Plan (06/24/2024 12:38 PM CHICKEN BONER): Weight/BMI is in healthy range. Continue healthy [...] 06/24/2024 Assessment & Plan (06/24/2024 12:37 PM CHICKEN BONER): Check DEXA Breast cancer screening by mammogram 06/24/2024 Assessment & Plan (06/24/2024 12:37 PM CHICKEN BONER): Mammogram order provided Prediabetes 01/09/2024 Assessment & Plan (06/24/2024 12:36 PM CHICKEN BONER): Pre-diabetes/hyperglycemia is a precursor to Dm. Stressed [...] both Assessment & Plan (06/30/2023 3:08 PM CHICKEN BONER): Patient has persistent hip pain. Mobic is helping. Will continue to monitor Hypertension, [...] medication Assessment & Plan (06/30/2023 3:07 PM CHICKEN BONER): Bp is stable/in acceptable range for any co-morbidities. Encouraged to limit sodium intake and exercise for weight control. Lisinopril 5 Assessment & Plan (06/03/2023 1:01 PM CHICKEN BONER): Bp is stable/in acceptable range for any [...] [facility] for any other problems or [...] 11/30/2022 Assessment & Plan (08/06/2024 11:45 AM CHICKEN BONER): Patient has significant fatigue. It appears as [...] results Assessment & Plan (07/19/2024 2:24 PM CHICKEN BONER): Patient has been doing great with her [...] 07/13/2019 Assessment & Plan (07/13/2019 9:03 AM CHICKEN BONER): History of diverticulitis -- Watch diet and increase fluids. Call if has sxs to avoid possible complications Anxiety 05/07/2017 Overview (09/02/2020): Mostly with driving Assessment & Plan (08/06/2024 11:44 AM CHICKEN BONER): Mood is stable and probably a little improved with her calories. Continue Lexapro and BuSpar Assessment & Plan (06/24/2024 12:36 PM CHICKEN BONER): Stable with Lexapro 10 and BuSpar 10 [...] bruxism Assessment & Plan (06/30/2023 3:08 PM CHICKEN BONER): Stable with Lexapro 10. Still having some [...] grinding. Assessment & Plan (07/13/2019 9:06 AM CHICKEN BONER): Pt is managing sxs with behavior modification. Plans to continue to monitor Mixed hyperlipidemia 05/07/2017 Assessment & Plan (06/24/2024 12:36 PM CHICKEN BONER): Encouraged patient to follow low fat/low chol [...] 10 Assessment & Plan (06/30/2023 3:07 PM CHICKEN BONER): Encouraged patient to follow low fat/low chol [...] labs Assessment & Plan (07/13/2019 9:05 AM CHICKEN BONER): This is a significant, separately identifiable problem [...] the office today BMI 31.0-31.9,adult 03/18/2024 06/24/19 Assessment & Plan (03/18/2024 1:04 PM CDT): [...] 10/12/2023 Assessment & Plan (06/30/2023 3:08 PM CHICKEN BONER): Patient is being treated. Will continue to [...] provided. Assessment & Plan (06/30/2023 3:07 PM CHICKEN BONER): Discussed the patient's BMI. The BMI is above average. BMI management plan is completed. BMI Follow-up includes: nutrition counseling, exercise counseling and education provided. BMI 33.0-33.9,adult 06/03/2023 06/30/19 Assessment & Plan (06/03/2023 1:01 PM CHICKEN BONER): Discussed the patient's BMI. The BMI is above average. BMI management plan is completed. BMI Follow-up includes: nutrition counseling, exercise counseling and education provided. Left hip pain 06/03/2023 06/30/2023 Assessment & Plan (06/03/2023 1:02 PM CHICKEN BONER): Patient notes left hip pain that is radiating to the groin. Has not had an x-ray done. Does respond nicely to NSAIDs so she can continue with those. Follow-up pending the x-rays Need for Tdap vaccination 06/03/2023 Assessment & Plan (06/03/2023 1:02 PM CHICKEN BONER): Tdap updated in the office today Obesity [...] provided. Assessment & Plan (06/30/2023 3:06 PM CHICKEN BONER): Insert obesity Assessment & Plan (06/03/2023 11:26 AM CHICKEN BONER): Discussed the patients BMI: The BMI is [...] as discussed above. BMI 31.0-31.9,adult 02/22/2022 11/16/19 Assessment & Plan (04/14/2022 8:23 PM CDT): [...] 07/10/20212021 Assessment & Plan (07/10/2021 7:59 AM CHICKEN BONER): Obesity is unchanged. Discussed the patient's BMI. The BMI is above average. BMI management plan is completed. BMI Follow-up includes: nutrition counseling, exercise counseling and education provided. BMI 31.0-31.9,adult 07/10/2021 02/23/20 22 Assessment & Plan (07/10/2021 7:59 AM CHICKEN BONER): Obesity is unchanged. Discussed the patient's BMI. The BMI is above average. BMI management plan is completed. BMI Follow-up includes: nutrition counseling, exercise counseling and education provided. Plantar fasciitis of left foot 07/10/2021 10/12/2023 Assessment & Plan (07/10/2021 9:04 AM CHICKEN BONER): Symptoms appear to be most consistent with [...] 10/12/2023 Assessment & Plan (07/10/2021 9:06 AM CHICKEN BONER): Patient has noted visual changes over the last 6-8 weeks. She was evaluated in [place] and told had a leak behind the eye she has noticed continued floaters and flashes her so he can as well as decrease in acuity. Stressed importance of following up with Ophthalmology. Provided options and she prefers to be seen in [place]. Provided the name of Dr. abbott her [...] sxs worsen. Encounter for well woman abiola cooper with routine gynecological exam 03/14/2021 10/12/2023 Assessment [...] and education provided. BMI 31.0-31.9,adult 01/11/2021 03/14/20 Assessment & Plan (01/15/2021 8:15 PM CDT): [...] sooner if worsening. BMI 31.0-31.9,adult 05/25/2020 01/12/20 Assessment & Plan (09/02/2020 10:32 AM CDT): Obesity is unchanged. Discussed the patient's BMI. The BMI is above average. BMI management plan is completed. BMI Follow-up includes: nutrition counseling, exercise counseling and education provided. Assessment & Plan (05/25/2020 3:23 PM CHICKEN BONER): Obesity is unchanged. Discussed the patient's BMI. The BMI is above average. BMI management plan is completed. BMI Follow-up includes: nutrition counseling, exercise counseling and education provided. BMI 30.0-30.9,adult 07/13/2019 05/25/20 Assessment & Plan (07/13/2019 9:06 AM CHICKEN BONER): Obesity is unchanged. Discussed the patient's BMI. The BMI is above average. BMI management plan is completed. BMI Follow-up includes: nutrition counseling, exercise counseling and education provided. Annual physical exam 07/13/2019 024 Assessment & Plan (11/30/2022 10:06 PM [...] visit. Assessment & Plan (07/13/2019 9:05 AM CHICKEN BONER): Encouraged healthy lifestyle, good nutrition and exercise. Encouraged Calcium and Vitamin D and weight bearing exercise for bone health. Reviewed immunizations Reviewed age appropirate screenings. Breast cancer screening by mammogram 07/13/2019 10/12/2023 Assessment & Plan (04/16/2023 8:43 PM CDT): Mammogram order provided Assessment & Plan (04/14/2022 8:22 PM CDT): Mammogram order provided Assessment & Plan (07/13/2019 9:06 AM CHICKEN BONER): Mammogram order provided Influenza vaccine refused 07/13/2019 Assessment & Plan (07/13/2019 9:06 AM CHICKEN BONER): Encouraged vaccine. Reviewed risks/ benefits. Patient refuses and accepts risks. Chronic kidney disease (CKD) , stage III (moderate) 07/13/2019 07/17/2020 Assessment & Plan (07/13/2019 9:08 AM CHICKEN BONER): This is a significant, separately identifiable problem that was evaluated and managed on the same day as the wellness exam This is the first time her GFR has dropped below 60. Avoid nephrotoxic drugs including NSAIDs. Monitor labs. Diverticulitis 06/24/2018 10/12/2023 Overview (09/02/2020): 06/2018 [facility] Assessment & Plan (04/14/2022 8:23 PM CDT): [...] plan. Assessment & Plan (05/25/2020 11:15 PM CHICKEN BONER): Complete flagyl and cipro. BRAT diet and [...] maintain. Assessment & Plan (05/25/2020 11:16 PM CHICKEN BONER): Obesity is unchanged. Discussed the patient's BMI. The BMI is above average. BMI management plan is completed. BMI Follow-up includes: nutrition counseling, exercise counseling and education provided. Other obesity due to excess calories 03/20/2017 04/14/2022 Encounters Date Type Department Care Team Description 08/06/2024 11:00 AM CHICKEN BONER Office Visit [address] [place] [phone] Joanna Pacheco PA Other fatigue (Primary Dx); Anxiety; BMI 27.0-27.9,adult 07/20/[address] [place] [phone] Joanna Pacheco PA 07/13/[address] [place] [phone] Joanna Pacheco PA 07/09/[address] [place] [phone] Joanna Pacheco PA Billing Question 07/06/2024 3:30 PM CHICKEN BONER Office Visit [address] [place] [phone] Joanna Pacheco PA Other fatigue (Primary Dx); BMI 27.0-27.9,adult 06/24/2024 10:00 AM CHICKEN BONER Office Visit [address] [place] [phone] Joanna Pacheco PA Anxiety (Primary Dx); Mixed hyperlipidemia; Prediabetes; Menopause; Breast cancer screening by mammogram; BMI 28.0-28.9,adult from Last 3 Months Immunizations Immunization Administration Dates Next Due Influenza, Quadrivalent, Spl it, Preservative Free, Intramuscular 04/16/2023,03/20/2022,05/02/2021,04/13,04/28/2018 Influenza, Trivalent, High D ose, Split, Preservative Free, Intramuscular 03/18/2024 Influenza, Unspecified 06/17/2024(Deferred: Jennie ent Refused) Pfizer SARS-CoV-2 Monovalent Vaccination (12+ Yrs) PURPLE 09/10/2020,08/19/2020 Pneumococcal Conjugate Pcv20 10/08/2023 Tdap 06/03/2023 Surgical History Surgery Date Site/Laterality Comments WISDOM TOOTH EXTRACTION BREAST BIOPSY 10/23/2023 Right Medical History Medical History Date Comments Hyperlipidemia Plantar fasciitis Hypertension hx of , none med s since residential 3 yrs ago Family History Medical History Relation Name Comments Diabetes Brother Thyroid disease Brother Arthritis Father Attila Hyperlipidemia Father Attila Hypertension Father Attila Rheum arthritis Father's Brother Rheum arthritis Father's Sister Arthritis Mother Miguelina Breast cancer Mother Miguelina Diabetes Mother Miguelina Non-Hodgkin's Lymphoma Mother Miguelina Relation Name Status Comments Brother Father Attila Alive Father's Brother Father's Sister Mother Miguelina Social History Tobacco Use Types Packs/Day Years [...] on file Legal Sex Female 12:11 AM CHICKEN BONER Gender Identity Female 05/23/2020 1:48 PM CHICKEN BONER Sexual Orientation Straight 05/23/2020 1: 48 PM CHICKEN BONER Occupation Industry Job Start Date Job End Date Retired Not on file Not on file Not on file Obstetrics History Last Filed Vital Signs Vital Sign Reading Time Taken Comments Blood Pressure 116/80 08/06/2024 11:04 AM CHICKEN BONER Pulse 80 08/06/2024 11:04 AM CHICKEN BONER Temperature 36.4 C (97.5 F) 08/06/2024 11:04 AM CHICKEN BONER Respiratory Rate 18 05/05/2024 5:55 PM CHICKEN BONER Oxygen Saturation 98% 08/06/2024 11:04 AM CHICKEN BONER Inhaled Oxygen Concentration - - Weight 80.3 kg (177 lb 1.6 oz) 08/06/2024 11:04 AM CHICKEN BONER Height 170.2 cm (5' 7 ) 08/06/2024 11:04 AM CHICKEN BONER Body Mass Index 27.74 08/06/2024 11:04 AM CHICKEN BONER Plan of Treatment Health Maintenance Due Date Last Done Comments Hepatitis C Screening 1960 Osteoporosis Screening-Bone Density Scan 1958 Hepatitis B Screening 1976 Zoster Vaccine (1 of 2) 2008 Cervical Cancer Screening 05/07/2018 05/07/2017, Covid-19 Vaccine (2023-2 5 season) 2024 01/07/2022, 05/23/2021, 09/10/2020, Additional history exists Well Visit 65+ 10/07/2024 10/08/2023, 07/0 10/2022, 11/15/2022, Additional history exists Breast Cancer Screening-Mammogram 04/30/2025 04/30/2024, 09/17/2023, 08/17/2022, Additional history exists Fall Risk Assessment 07/06/2025 07/06/2024, 06/24/2024, 10/08/2023, Additional history exists Depression Screening 08/06/2025 08/06/2024, 07/06/2024, 06/24/2024, Additional history exists DTaP/Tdap/Td Vaccine (2 - Td or Tdap) 06/03/2033 06/03/2023 Colon Cancer Screening-Colonoscopy 08/27/2034 08/27/2024, 07/24/2021 Pneumococcal vaccine 65+ Completed 10/08/2023 Influenza Vaccine Completed 03/18/2024, , 03/20/2022, Additional history exists Colon Cancer Screening-DNA Stool Discontinued 08/28/19, 12/07/2017 Procedures Procedure Name Priority Date/Time Associated Diagnosis Comments HM COLONOSCOPY Routine 08/27/2024 7:15 AM CDT VITAMIN D 25 HYDROXY Routine 06/24/2024 8:44 AM CHICKEN BONER Vitamin D deficiency Annual physical exam TSH Routine 06/24/2024 8:41 AM CHICKEN BONER Annual physical exam Other fatigue HEMOGLOBIN A1C Routine 06/24/2024 8:41 AM CHICKEN BONER Prediabetes Annual physical exam LIPID PANEL Routine 06/24/2024 8:41 AM CHICKEN BONER Mixed hyperlipidemia Annual physical exam COMPREHENSIVE METABOLIC PANEL Routine 06/24/2024 8:41 AM CHICKEN BONER Hypertension, essential Annual physical exam MAMMOGRAPHY Routine 04/30/2024 3:05 PM CHICKEN BONER THINPREP ICU NURSE PAP (IMAGE GUIDED) LIQUID-BASED PREP Routine 05/07/2017 2:00 PM CHICKEN BONER from Last 3 Months or Most Recently Relevant to Health Maintenance Results * COLONOSCOPY (08/27/2024 7:15 AM CDT) Scribed Colonoscopy Normal us Historical Provider HEALTH MAINTENANCE Final Result * Vitamin D 25 hydroxy (06/24/2024 8:44 AM CHICKEN BONER) Vitamin D 25-OH 91 30 - 100 ng/mL [facility] Comment: Vitamin D Status 25-OH Vitamin D: Deficiency: <20 ng/mL Insufficiency: 20 - 29 ng/mL Optimal: > or = 30 ng/mL For 25-OH Vitamin D testing on patients on D2-supplementation and patients for whom quantitation of D2 and D3 fractions is required, the [facility]() 25-OH VIT D, (D2,D3), LC/MS/MS is recommended: order code 15587 (patients >2yrs). See Note 1 Note 1 For additional information, please refer to http://education.[employer].Ban[employer]/faq/JBX192 (This link is being provided for informational/ educational purposes only.) Blood 06/24/2024 8:44 AM CHICKEN BONER 06/24/2024 8:44 AM CHICKEN BONER Result [facility] Joanna GAYLE LAB BLOOD ORDERABLES Final Result Performing Organization Address [facility] de Phone Number [facility] [address] [place] [address] * TSH (06/24/2024 8:41 AM CHICKEN BONER) Pathologist [facility] TSH 1.61 0.40 - 4.50 mIU/L [facility] aiyana Blood 06/24/2024 8:41 AM CHICKEN BONER 06/24/2024 8:42 AM CHICKEN BONER Narrative [facility] - 06/25/2024 6:12 AM CHICKEN BONER FASTING:YES FASTING: YES Result [facility] Joanna GAYLE LAB BLOOD ORDERABLES Final Result Performing Organization Address [facility] Phone Number [facility] [address] [place] [address] * Hemoglobin A1c (06/24/2024 8:41 AM CHICKEN BONER) [facility] Hgb A1C 5.5 <5.7 % of total Hgb [facility] Comment: For the purpose of screening for the presence of diabetes: <5.7% Consistent with the absence of diabetes 5.7-6.4% Consistent with increased risk for diabetes (prediabetes) > or =6.5% Consistent with diabetes This assay result is consistent with a decreased risk of diabetes. Currently, no consensus exists regarding use of hemoglobin A1c for diagnosis of diabetes in children. According to [place] Diabetes Association (ADA) guidelines, hemoglobin A1c <7.0% represents optimal control in non- diabetic patients. Different metrics may apply to specific patient populations. Standards of Medical Care in Diabetes(ADA). Blood 06/24/2024 8:41 AM CHICKEN BONER 06/24/2024 8:42 AM CHICKEN BONER Narrative [facility] - 06/25/2024 6:12 AM CHICKEN BONER FASTING:YES FASTING: YES Joanna GAYLE LAB BLOOD ORDERABLES Final Result [facility] [address] [place] [address] * (ABNORMAL) Lipid panel (06/24/2024 8:41 AM CHICKEN BONER) Cholesterol 104 <200 mg/dL [facility] [...] equation in the estimation of LDL-C. Lui SS et al. MAYCO. 2013;310(19): 9514-7173 (http://education.MiArch/faq/MCY796) Chol/HDL ratio 2.2 <5.0 (calc) [facility] Non-HDL, (LDL+VLDL) 57 <130 mg/dL (calc) [facility] Comment: For patients with diabetes plus 1 major ASCVD risk factor, treating to a non-HDL-C goal of <100 mg/dL (LDL-C of <70 mg/dL) is considered a therapeutic option. Blood 06/24/2024 8:41 AM CHICKEN BONER 06/24/2024 8:42 AM CHICKEN BONER Narrative [facility] - 06/25/2024 6:12 AM CHICKEN BONER FASTING:YES FASTING: YES Joanna GAYLE LAB BLOOD ORDERABLES Final Result [facility] [address] [place] [address] * (ABNORMAL) Comprehensive metabolic panel (06/24/2024 8:41 AM CHICKEN BONER) Glucose 84 65 - 99 mg/dL [facility] [...] [facility] Blood 06/24/2024 8:41 AM CHICKEN BONER 06/24/2024 8:42 AM CHICKEN BONER Narrative [facility] - 06/25/2024 6:12 AM CHICKEN BONER FASTING:YES FASTING: YES us Joanna GAYLE LAB BLOOD ORDERABLES Final Result [facility] [address] [place] [address] * HM MAMMOGRAPHY (04/30/2024 3:05 PM CHICKEN BONER) Mammography Normal Impressions Kely Fried MA - 04/30/2024 3:05 PM CHICKEN BONER Bi-Rads Category 2- Benign findings Historical Provider HEALTH MAINTENANCE Edited Result - Final * ThinPrep Gynecologic Pap Test (Image-guided), Liquid-based Preparation (05/07/2017 2:00 PM CHICKEN BONER) [facility]ORICAL [facility] [...] has been evaluated with computer assisted technology. COMMUTER TRAIN OPERATOR: [facility] HISTORICAL RESULTS Comment: MLK, CT(ASCP) CT screening location: [place] [address] [place] [address] 05/07/2017 2:00 PM CHICKEN BONER 05/16/2017 7:55 PM CHICKEN BONER Narrative [facility] HISTORICAL RESULTS - 05/16/2017 7:42 PM CHICKEN BONER FASTING: UNKNOWN PERFORMING LAB: [facility] [address] [facility] [address] Monty Pugh MD Historical Provider LAB PATHOLOGY ORDERABLES Final Result [facility] HISTORICAL RESULTS from Last 3 Months or Most Recently Relevant to Health Maintenance Insurance [facility] [id number] [facility] MEDICARE Care Teams Relay Dispatcher Relationship Specialty Start Date End Date Joanna Pacheco PA [address] [facility] [address] [place] [address] PCP - General Internal Medicine 03/26/19
--- OUTSIDE RECORDS SUMMARY | 2024-09-22 15:08 | XMS_ITS | Encounter Summary ---
Author Organization [facility] Healthcare Address [address] [place] [address] Care Team Providers Care Nail Maker Name Role Phone Joanna Pacheco Primary Care Provider +1- [phone] Encounter Details Date Type Department Care Team (Late st Contact Info) Description 04/30/2024 [place] Only [facility] [place] [address] [place] [id number] Scanning, Provider Social History Tobacco Use Types Packs/Day Years Used Date Smoking Tobacco: Never Smokeless Tobacco: Never Alcohol Use Standard Drinks/Week Comments Yes 0 (1 standard drink = 0.6 oz pur e alcohol) AUDIT-C Answer Date Recorded Q1: How often do you have a drink containing alc ohol? 2-3 times a week 06/24/2023 Q2: How many drinks containi ng alcohol do you have on a typical day when you are drinking? 3 or 4 06/24/2023 Q3: How often do you have si x or more drinks on one occasion? Less than monthly 06/24/2023 PHQ-2 Answer Date Recorded PHQ-2 Total Score (If total score is 3 or more points, staff should administer the PHQ-9) 0 03/18/2024 Personal Safety Answer Date Recorded Have you ever been in or are you currently in a harmful physical or emotional relationship or is someone making you feel afraid or unsafe? Denies 04/22/2024 Comments No Sex and Gender Information Value Date Recorded Sex Assigned at Not on file Legal Sex Female 12:11 AM HYDRAULICS TEACHER Gender Identity Female 05/23/2020 1:48 PM HYDRAULICS TEACHER Sexual Orientation Straight 05/23/2020 1: 48 PM HYDRAULICS TEACHER Occupation Industry Job Start Date Job End Date Retired Not on file Not on file Not on file documented as of this encounter Plan of Treatment Not on file documented as of this encounter Procedures Procedure Name Priority Date/Time Associated Diagnosis Comments SCAN - RADIOLOGY/IMAGING 04/30/2024 documented in this encounter Results * SCAN - RADIOLOGY/IMAGING (04/30/2024) Anatomical Region Laterality Modality Other us Provider Scanning Final Result documented in this encounter Visit Diagnoses Not on filedocumented in this encounter Additional Health Concerns Infection Onset Date Last Indicated Resolved Time COVID: Suspected 05/05/2024 05/05/2024 05/05/2024 6:39 PM HYDRAULICS TEACHER documented as of this encounter Care Teams Nail Maker Relationship Specialty Start Date End Date Joanna Pacheco PA [address] [facility] [address] [place] [address] PCP - General Internal Medicine 03/26/19 documented as of this encounter
--- OUTSIDE RECORDS SUMMARY | 2024-09-22 15:08 | XMS_ITS | Encounter Summary ---
Author Organization [facility] Healthcare Address [address] [place] [address] Care Team Providers Care Sack Repairer Name Role Phone Joanna Pacheco Primary Care Provider +1- [phone] Encounter Details Date Type Department Care Team (Late st Contact Info) Description 10/23/2023 Orders Only [facility] [place] [address] [place] [id number] Scanning, Provider Social History Tobacco Use [...] points, staff should administer the PHQ-9) 0 10/08/2023 Personal Safety Answer Date Recorded Getting School Help Needed Not on file 06/03 Comments No Sex and Gender Information Value Date Recorded Sex Assigned at Not on file Legal Sex Female 12:11 AM CONTRACTOR BUYER Gender Identity Female 05/23/2020 1:48 PM CONTRACTOR BUYER Sexual Orientation Straight 05/23/2020 1: 48 PM CONTRACTOR BUYER Occupation Industry Job Start Date Job End Date Retired Not on file Not on file Not on file documented as of this encounter Plan of Treatment Not on file documented as of this encounter Procedures Procedure Name Priority Date/Time Associated Diagnosis Comments SCAN - PATHOLOGY 10/23/2023 documented in this encounter Results * SCAN - PATHOLOGY (10/23/2023) us Provider Scanning Final Result documented in this encounter Visit Diagnoses Not on filedocumented in this encounter Additional Health Concerns Infection Onset Date Last Indicated Resolved Time COVID: Suspected 05/05/2024 05/05/2024 05/05/2024 6:39 PM CONTRACTOR BUYER documented as of this encounter Care Teams Sack Repairer Relationship Specialty Start Date End Date Joanna Pacheco PA [address] [address] PCP - General Internal Medicine 03/26/19 documented as of this encounter
--- OUTSIDE RECORDS SUMMARY | 2024-09-22 15:08 | XMS_ITS | Clinical Summary ---
Author Organization [facility] Address [address] [place] [address] Care Team Providers Care Assistant Housekeeping Manager Name Role Phone None, Provider MD Primary Care Provider Unavaila ble Social History Tobacco Use Types Packs/Day Years Used Date Smoking Tobacco: Never Assessed Comments Unknown Sex and Gender Information Value Date Recorded Sex Assigned at Not on file Legal Sex Female 1:45 PM CDT Gender Identity Not on file Sexual Orientation Not on file Plan of Treatment Health Maintenance Due Date Last Done Comments Colorectal Cancer Screening Colonoscopy (10 Years) 1960 Hepatitis C 1976 Zoster Vaccines (1 of 2) 2008 Dexa Scan (General) 09/26/2023 COVID-19 Vaccine ( - 2023-2 5 season) 2024 09/10/2020, 08/19/2020 Mammogram Screening 10/22/2025 10/23/2023 DTaP, Tdap and Td Vaccines ( 2 - Td or Tdap) 06/03/2033 06/03/2023 RSV Immunization or 60+ Years (1 - 1-dose 75+ series) 2033 Pneumococcal Vaccine: 65+ Years Completed 10/08/2023 Pneumococcal Vaccine: Pediatrics (0 to 5 Years) and At-Risk Patients (6 to 64 Years) Aged Out 10/08/2023 No longer eligible b ased on patient's age to complete this topic Meningococcal B Vaccine Aged Out No l onger eligible based on patient's age to complete this topic Meningococcal Vaccine Aged Out No nico michelle eligible based on patient's age to complete this topic RSV Immunizations Under 20 Months Aged Out No longer eligible b ased on patient's age to complete this topic Procedures Procedure Name Priority Date/Time Associated Diagnosis Comments MG DIAGNOSTIC RT DIGI Routine 10/23/2023 3:35 PM CDT Breast lump on right side at 10 o'clock position from Last 3 Months or Most Recently Relevant to Health Maintenance Results * MG DIAGNOSTIC RT DIGI (10/23/2023 3:35 PM CDT) Anatomical Region Laterality Modality Breast Right Mammography 10/23/2023 3:42 PM CDT Impressions 10/23/2023 3:43 PM CDT =====IMPRESSION:===== Biopsy clip in right breast. Dr. Tejeda performed ultrasound-guided biopsy ASSESSMENT: WAITING FOR PATHOLOGY Recommendation: 1: Waiting on Pathology Right COMMENTS: Ordered By: KENDRICK TEJEDA Interpreted By: Jabari Flaherty, 10/23/2023 3:42 PM Narrative 10/23/2023 3:43 PM CDT EXAMINATION: Digital right diagnostic mammogram with 3-D tomography EXAM DATE/TIME: 10/23/2023 3:22 PM REASON FOR EXAM: post bx, right breast mass COMPARISON: 10/08/2023. 09/17/2023 TECHNIQUE: Digital diagnostic mammography of the right breast was performed in addition to 3-D Tomosynthesis technique. . This study was read with the assistance of a computer-aided detection system. TISSUE DENSITY: The breast tissue is heterogeneously dense, which may obscure small masses. FINDINGS: Biopsy clip noted within the approximate 9 to 10:00 position of the right breast in its mid aspect. Procedure Note Avi Flaherty MD - 10/23/2023 EXAMINATION: Digital right diagnostic mammogram with 3-D tomography EXAM DATE/TIME: 10/23/2023 3:22 PM REASON FOR EXAM: post bx, right breast mass COMPARISON: 10/08/2023. 09/17/2023 TECHNIQUE: Digital diagnostic mammography of the right breast wasperformed in addition to 3-D Tomosynthesis technique. . This study wasread with the assistance of a computer-aided detection system. TISSUE DENSITY: The breast tissue is heterogeneously dense, which mayobscure small masses. FINDINGS: Biopsy clip noted within the approximate 9 to 10:00 position ofthe right breast in its mid aspect. =====IMPRESSION:===== Biopsy clip in right breast. Dr. Tejeda performed ultrasound-guided biopsy ASSESSMENT: WAITING FOR PATHOLOGY Recommendation: 1: Waiting on Pathology Right COMMENTS: Ordered By: KENDRICK TEJEDA Interpreted By: Jabari Flaherty, 10/23/2023 3:42 PM Kendrick Tejeda MD MAMMO Final Result from Last 3 Months or Most Recently Relevant to Health Maintenance Insurance MEDICARE [employer] OPEN ACCESS [facility] Care Teams Assistant Housekeeping Manager Relationship Specialty Start Date End Date None, Provider, MD PCP - General UNKNOWN PHYSICIAN SPECIALTY 10/23/23
--- OUTSIDE RECORDS SUMMARY | 2024-09-22 15:08 | XMS_ITS | Encounter Summary ---
Author Organization [facility] Care Team Providers Care Merchant Tailor Name Role Phone Joanna Pacheco Primary Care Provider +1- [phone] Encounter Details Date Type Department Care Team (Latest Contact Info) Description 04/01/2017 Orders Only [facility] ProviderKristofer MD [address] [place] [address] Social History Tobacco Use Types Packs/Day Years Used Date Smoking Tobacco: Never Assessed Comments Unknown Sex and Gender Information Value Date Recorded Sex Assigned at Not on file Legal Sex Female 12:11 AM IC DESIGN ENGINEER Gender Identity Female 05/23/2020 1:48 PM IC DESIGN ENGINEER Sexual Orientation Straight 05/23/2020 1: 48 PM IC DESIGN ENGINEER documented as of this encounter Plan of Treatment Not on file documented as of this encounter Procedures Procedure Name Priority Date/Time Associated Diagnosis Comments PROCEDURE - RESULT 04/01/2017 12 :00 AM CDT documented in this encounter Results * PROCEDURE - RESULT (04/01/2017 12:00 AM CDT) Narrative 04/01/2017 12:00 AM CDT Ordered by an unspecified provider. us Historical Provider Final Res ult documented in this encounter Visit Diagnoses Not on filedocumented in this encounter Additional Health Concerns Infection Onset Date Last Indicated Resolved Time COVID: Suspected 05/05/2024 05/05/2024 05/05/2024 6:39 PM IC DESIGN ENGINEER documented as of this encounter Care Teams Merchant Tailor Relationship Specialty Start Date End Date Joanna Pacheco PA [address] [place] [address] PCP - General Internal Medicine 03/26/19 documented as of this encounter
--- OUTSIDE RECORDS SUMMARY | 2024-09-22 15:08 | XMS_ITS | Encounter Summary ---
Author Organization [facility] Care Team Providers Care Gas Station Attendant Name Role Phone Joanna Pacheco Primary Care Provider +1- [phone] Encounter Details Date Type Department Care Team (Latest Contact Info) Description 12/04/2017 Orders Only [facility] ProviderKristofer MD [address] [place] [address] Social History Tobacco Use Types Packs/Day Years Used Date Smoking Tobacco: Never Assessed Comments Unknown Sex and Gender Information Value Date Recorded Sex Assigned at Not on file Legal Sex Female 12:11 AM SALES OFFICE COORDINATOR Gender Identity Female 05/23/2020 1:48 PM SALES OFFICE COORDINATOR Sexual Orientation Straight 05/23/2020 1: 48 PM SALES OFFICE COORDINATOR documented as of this encounter Plan of Treatment Not on file documented as of this encounter Procedures Procedure Name Priority Date/Time Associated Diagnosis Comments SCAN - LABS 12/09/2017 12:00 AM CDT documented in this encounter Results * SCAN - LABS (12/09/2017 12:00 AM CDT) Narrative 12/09/2017 12:00 AM CDT Ordered by an unspecified provider. us Historical Provider Final Res ult documented in this encounter Visit Diagnoses Not on filedocumented in this encounter Additional Health Concerns Infection Onset Date Last Indicated Resolved Time COVID: Suspected 05/05/2024 05/05/2024 05/05/2024 6:39 PM SALES OFFICE COORDINATOR documented as of this encounter Care Teams Gas Station Attendant Relationship Specialty Start Date End Date Joanna Pacheco PA [address] [place] [address] PCP - General Internal Medicine 03/26/19 documented as of this encounter
== END 2024-09-22 13:27 | disposition home or self-care (01) ==
PROVIDERS: PCP Physician Assistant; Visit Provider Physician Assistant
DX: M85.89 Other specified disorders of bone density and structure, multiple sites (principal); Z78.0 Asymptomatic menopausal state
CPT/HCPCS: 77080

== ENCOUNTER 2024-11-18 15:45 | Outpatient (CLI) | payer MEDICARE, OTHER, SELFPAY ==
--- NOTE | ~2024-11-18 | MM_ITS ---
EXAMINATION: MM screening [facility] BI w bing HISTORY: Screening mammogram TECHNIQUE: Craniocaudal and mediolateral oblique 3-D tomosynthesis images were obtained and synthetic 2-D images were generated. CAD analysis was submitted and interpreted. COMPARISON: 09/17/2023 through 02/12/2008 BREAST PARENCHYMAL COMPOSITION: The breasts are heterogeneously dense, which may obscure small masses . FINDINGS: There is no evidence of suspicious mass, calcification, or architectural distortion to sug gest malignancy in either breast. There has been no suspicious interval change. Subsequently present in the right breast. IMPRESSION: 1. No mammographic evidence of malignancy. 2. Recommend routine screening mammography in one year. BI-RADS Category 1: Negative Reviewed, dictated and finalized at location B.
--- OUTSIDE RECORDS SUMMARY | 2024-11-18 15:47 | XMS_ITS | Encounter Summary ---
Author Organization [facility] Healthcare Address [address] [place] [address] Care Team Providers Care Learning Support Specialist Name Role Phone Joanna Pacheco Primary Care Provider +1- [phone] Encounter Details Date Type Department Care Team (Late st Contact Info) Description 10/06/2024 Results Follow-Up [facility] Medical Group Family Medicine [address] [place] [address] Joanna Pacheco PA [address] [place] [address] Dexa Axial Skeleton Bone Density 1 or 2 Site Social History Tobacco Use Types Packs/Day Years [...] on file Legal Sex Female 12:11 AM HARDNESS INSPECTOR Gender Identity Female 05/23/2020 1:48 PM HARDNESS INSPECTOR Sexual Orientation Straight 05/23/2020 1: 48 PM HARDNESS INSPECTOR Occupation Industry Job Start Date Job End Date Retired Not on file Not on file Not on file documented as of this encounter Plan of Treatment Not on file documented as of this encounter Visit Diagnoses Not on filedocumented in this encounter Additional Health Concerns Infection Onset Date Last Indicated Resolved Time COVID: Suspected 11/16/2024 11/16/2024 11/16/2024 1:58 PM CDT documented as of this encounter Care Teams Learning Support Specialist Relationship Specialty Start Date End Date Joanna Pacheco PA [address] [facility] [address] [place] [address] PCP - General Internal Medicine 03/26/19 documented as of this encounter
--- OUTSIDE RECORDS SUMMARY | 2024-11-18 15:47 | XMS_ITS | Clinical Summary ---
Author Organization [facility] [address] [facility] Address [address] [place] [address] Care Team Providers Care Shrinker Name Role Phone Joanna Pacheco Primary Care Provider +1- [phone] Allergies Active Allergy Reactions Criticality Noted Date Comments Ciprofloxacin Rash Medium 02/22/2022 Rash but was on Flagyl at the same time. Nitrofurantoin Stomach upset Low 08/03/2016 Sulfa (Sulfonamide Antibiotics) Rash Medium 07/09/2019 rash Medications calcium carbonate-elizabeth min D3 1500 mg (600 mg elemental) -200 units per tablet Take 1 tablet by mouth daily Active omeprazole (PriLOSEC) 10 mg capsule Take 1 capsule (10 mg total) by mouth daily Pt takes Q other day. Active rosuvastatin (CRESTOR) 10 mg tablet TAKE 1 TABLET(10 MG) BY MOUTH DAILY 90 tablet 1 05/20/20 24 Active escitalopram (LEXAPRO) 10 mg tablet Take 1 tablet (10 mg total) by mouth daily 90 tablet 1 06/24/19 25 Active Additional Information Patient not taking.Reported on 11/16/2024 busPIRone (BUSPAR) 10 mg tablet TAKE 1 TABLET(10 MG) BY MOUTH THREE TIMES DAILY 90 tablet 1 10/06/19 25 Active semaglutide (WEGOVY) 2.4 mg/0.75 mL auto-injectorI ndications:BMI 27.0-27.9,adul t Inject 2.4 mg under the skin every 7 days 9 mL 1 10/31/19 25 Active meloxicam (MOBIC) 15 mg tabletIndicati ons:Pain of left hip Take 1 tablet (15 mg total) by mouth daily 90 tablet 1 11/18/19 25 026 Active doxycycline (VIBRAMYCIN) 100 mg capsuleIndicat ions:Acute non-recurrent sinusitis, unspecified location Take 1 tablet/capsule (100 mg total) by mouth 2 (two) times a day for 10 days 20 tablet/caps ule 11/19/19 25 025 Active meloxicam (MOBIC) 7.5 mg tabletIndicati ons:Hip pain, unspecified laterality Take 1 tablet (7.5 mg total) by mouth daily 90 tablet 1 06/24/19 24 025 Discontinued semaglutide (WEGOVY) 2.4 mg/0.75 mL auto-injectorI ndications:BMI 27.0-27.9,adul t Inject 2.4 mg under the skin every 7 days 2 mL 2 10/03/19 25 025 Discontinued(R eorder) amoxicillin (AMOXIL) 875 mg tablet Take 1 tablet (875 mg total) by mouth 2 (two) times a day for 10 days 20 tablet 11/17/19 25 025 Discontinued Active Problems Problem Noted Date Diagnosed Date BMI 26.0-26.9,adult 06/24/2024 Assessment & Plan (11/16/2024 1:46 PM CDT): Weight/BMI is in healthy range. Continue healthy lifestyle to maintain. Assessment & Plan (08/06/2024 11:45 AM GAME PROTECTOR): Patient is getting to a nice weight with the help with the Wegovy 2.4. Continue with healthy eating exercise and continue to monitor. Assessment & Plan (07/19/2024 2:24 PM GAME PROTECTOR): Doing well with weight loss efforts with the Wegovy. Assessment & Plan (06/24/2024 12:38 PM GAME PROTECTOR): Weight/BMI is in healthy range. Continue healthy [...] 06/24/2024 Assessment & Plan (06/24/2024 12:37 PM GAME PROTECTOR): Check DEXA Breast cancer screening by mammogram 06/24/2024 Assessment & Plan (06/24/2024 12:37 PM GAME PROTECTOR): Mammogram order provided Prediabetes 01/09/2024 Assessment & Plan (06/24/2024 12:36 PM GAME PROTECTOR): Pre-diabetes/hyperglycemia is a precursor to Dm. Stressed [...] both Assessment & Plan (06/30/2023 3:08 PM GAME PROTECTOR): Patient has persistent hip pain. Mobic is [...] medication Assessment & Plan (06/30/2023 3:07 PM GAME PROTECTOR): Bp is stable/in acceptable range for any co-morbidities. Encouraged to limit sodium intake and exercise for weight control. Lisinopril 5 Assessment & Plan (06/03/2023 1:01 PM GAME PROTECTOR): Bp is stable/in acceptable range for any [...] Follow-up with readings in 1-2 weeks by [facility] or sooner for any other problems or [...] 11/30/2022 Assessment & Plan (08/06/2024 11:45 AM GAME PROTECTOR): Patient has significant fatigue. It appears as [...] results Assessment & Plan (07/19/2024 2:24 PM GAME PROTECTOR): Patient has been doing great with her [...] 07/13/2019 Assessment & Plan (07/13/2019 9:03 AM GAME PROTECTOR): History of diverticulitis -- Watch diet and increase fluids. Call if has sxs to avoid possible complications Anxiety 05/07/2017 Overview (09/02/2020): Mostly with driving Assessment & Plan (08/06/2024 11:44 AM GAME PROTECTOR): Mood is stable and probably a little improved with her calories. Continue Lexapro and BuSpar Assessment & Plan (06/24/2024 12:36 PM GAME PROTECTOR): Stable with Lexapro 10 and BuSpar 10 [...] bruxism Assessment & Plan (06/30/2023 3:08 PM GAME PROTECTOR): Stable with Lexapro 10. Still having some [...] grinding. Assessment & Plan (07/13/2019 9:06 AM GAME PROTECTOR): Pt is managing sxs with behavior modification. Plans to continue to monitor Mixed hyperlipidemia 05/07/2017 Assessment & Plan (06/24/2024 12:36 PM GAME PROTECTOR): Encouraged patient to follow low fat/low chol [...] 10 Assessment & Plan (06/30/2023 3:07 PM GAME PROTECTOR): Encouraged patient to follow low fat/low chol [...] labs Assessment & Plan (07/13/2019 9:05 AM GAME PROTECTOR): This is a significant, separately identifiable problem [...] 10/12/2023 Assessment & Plan (06/30/2023 3:08 PM GAME PROTECTOR): Patient is being treated. Will continue to monitor BMI 33.0-33.9,adult 06/30/2023 03/18/20 Assessment & Plan (01/09/2024 2:38 PM CDT): [...] provided. Assessment & Plan (06/30/2023 3:07 PM GAME PROTECTOR): Discussed the patient's BMI. The BMI is above average. BMI management plan is completed. BMI Follow-up includes: nutrition counseling, exercise counseling and education provided. BMI 33.0-33.9,adult 06/03/2023 06/30/19 Assessment & Plan (06/03/2023 1:01 PM GAME PROTECTOR): Discussed the patient's BMI. The BMI is above average. BMI management plan is completed. BMI Follow-up includes: nutrition counseling, exercise counseling and education provided. Left hip pain 06/03/2023 06/30/2023 Assessment & Plan (06/03/2023 1:02 PM GAME PROTECTOR): Patient notes left hip pain that is radiating to the groin. Has not had an x-ray done. Does respond nicely to NSAIDs so she can continue with those. Follow-up pending the x-rays Need for Tdap vaccination 06/03/2023 Assessment & Plan (06/03/2023 1:02 PM GAME PROTECTOR): Tdap updated in the office today Obesity [...] provided. Assessment & Plan (06/30/2023 3:06 PM GAME PROTECTOR): Insert obesity Assessment & Plan (06/03/2023 11:26 AM GAME PROTECTOR): Discussed the patients BMI: The BMI is [...] 07/10/20212021 Assessment & Plan (07/10/2021 7:59 AM GAME PROTECTOR): Obesity is unchanged. Discussed the patient's BMI. The BMI is above average. BMI management plan is completed. BMI Follow-up includes: nutrition counseling, exercise counseling and education provided. BMI 31.0-31.9,adult 07/10/2021 02/23/20 Assessment & Plan (07/10/2021 7:59 AM GAME PROTECTOR): Obesity is unchanged. Discussed the patient's BMI. The BMI is above average. BMI management plan is completed. BMI Follow-up includes: nutrition counseling, exercise counseling and education provided. Plantar fasciitis of left foot 07/10/2021 10/12/2023 Assessment & Plan (07/10/2021 9:04 AM GAME PROTECTOR): Symptoms appear to be most consistent with [...] 10/12/2023 Assessment & Plan (07/10/2021 9:06 AM GAME PROTECTOR): Patient has noted visual changes over the last 6-8 weeks. She was evaluated in [place] and told had a leak behind the eye she has noticed continued floaters and flashes her so he can as well as decrease in acuity. Stressed importance of following up with Ophthalmology. Provided options and she prefers to be seen in [place]. Provided the name of Dr. abbott her [...] provided. Assessment & Plan (05/25/2020 3:23 PM GAME PROTECTOR): Obesity is unchanged. Discussed the patient's BMI. The BMI is above average. BMI management plan is completed. BMI Follow-up includes: nutrition counseling, exercise counseling and education provided. BMI 30.0-30.9,adult 07/13/2019 05/25/20 20 Assessment & Plan (07/13/2019 9:06 AM GAME PROTECTOR): Obesity is unchanged. Discussed the patient's BMI. [...] visit. Assessment & Plan (07/13/2019 9:05 AM GAME PROTECTOR): Encouraged healthy lifestyle, good nutrition and exercise. Encouraged Calcium and Vitamin D and weight bearing exercise for bone health. Reviewed immunizations Reviewed age appropirate screenings. Breast cancer screening by mammogram 07/13/2019 10/12/2023 Assessment & Plan (04/16/2023 8:43 PM CDT): Mammogram order provided Assessment & Plan (04/14/2022 8:22 PM CDT): Mammogram order provided Assessment & Plan (07/13/2019 9:06 AM GAME PROTECTOR): Mammogram order provided Influenza vaccine refused 07/13/2019 Assessment & Plan (07/13/2019 9:06 AM GAME PROTECTOR): Encouraged vaccine. Reviewed risks/ benefits. Patient refuses and accepts risks. Chronic kidney disease (CKD) , stage III (moderate) 07/13/2019 07/17/2020 Assessment & Plan (07/13/2019 9:08 AM GAME PROTECTOR): This is a significant, separately identifiable problem that was evaluated and managed on the same day as the wellness exam This is the first time her GFR has dropped below 60. Avoid nephrotoxic drugs including NSAIDs. Monitor labs. Diverticulitis 06/24/2018 10/12/2023 Overview (09/02/2020): 06/2018 [facility] Assessment & Plan (04/14/2022 8:23 PM [...] plan. Assessment & Plan (05/25/2020 11:15 PM GAME PROTECTOR): Complete flagyl and cipro. BRAT diet and [...] maintain. Assessment & Plan (05/25/2020 11:16 PM GAME PROTECTOR): Obesity is unchanged. Discussed the patient's BMI. The BMI is above average. BMI management plan is completed. BMI Follow-up includes: nutrition counseling, exercise counseling and education provided. Other obesity due to excess calories 03/20/2017 04/14/2022 Encounters Date Type Department Care Team Description 11/18/[address] [place] [address] Joanna Pacheco PA 11/17/[address] [place] [address] Joanna Pacheco PA 11/16/2024 1:30 PM CDT Office Visit [facility] Medicine [address] [place] [address] Road [address] [place] [address] Joanna Pacheco, PA BMI 26.0-26.9,adult (Primary Dx); Sore throat; Nasal congestion 10/30/2024 Telephone [facility] Internal Medicine at [address] [place] [address] Joanna Pacheco PA 10/19/2024 Telephone [facility] [address] [place] [address] Joanna Pacheco PA Additional Services Or Orders 10/06/2024 Results Follow-Up [address] [place] [address] Joanna Pacheco PA Dexa Axial Skeleton Bone Density 1 or 2 Site 10/02/[address] [place] [address] Joanna Pacheco PA from Last 3 Months Immunizations Immunization Administration [...] hx of , none med s since intermediate 3 yrs ago Family History Medical History [...] often do you have a drink containing alcohol? Never 11/16/2024 Q2: How many drinks containi ng alcohol do you have on a typical day when you are drinking? Patient does not drink Q3: How often do you have si x or more drinks on one occasion? Never 11/16/2024 PHQ-2 Answer Date Recorded PHQ-2 Total Score (If total score is 3 or more points, staff should administer the PHQ-9) 0 11/16/2024 Personal Safety Answer Date Recorded Have you ever been in or are you currently in a harmful physical or emotional relationship or is someone making you feel afraid or unsafe? Denies 04/22/2024 Comments No Sex and Gender Information Value Date Recorded Sex Assigned at Not on file Legal Sex Female 12:11 AM GAME PROTECTOR Gender Identity Female 05/23/2020 1:48 PM GAME PROTECTOR Sexual Orientation Straight 05/23/2020 1: 48 PM GAME PROTECTOR Occupation Industry Job Start Date Job End Date Retired Not on file Not on file Not on file Obstetrics History Last Filed Vital Signs Vital Sign Reading Time Taken Comments Blood Pressure 124/80 11/16/2024 1:43 PM CDT Pulse 81 11/16/2024 1:43 PM CDT Temperature 36.5 C (97.7 F) 11/16/2024 1:43 PM CDT Respiratory Rate 18 05/05/2024 5:55 PM GAME PROTECTOR Oxygen Saturation 98% 11/16/2024 1:43 PM CDT Inhaled Oxygen Concentration - - Weight 76.5 kg (168 lb 11.8 oz) 11/16/2024 1:43 PM CDT Height 170.2 cm (5' 7) 08/06/2024 11:0 4 AM GAME PROTECTOR Body Mass Index 26.43 08/06/2024 11:04 AM GAME PROTECTOR Plan of Treatment Health Maintenance Due Date Last Done Comments Hepatitis C Screening 1960 Hepatitis B Screening 1976 Zoster Vaccine (1 of 2) 2008 Covid-19 Vaccine (2023-2 5 season) 2024 01/07/2022, 05/23/2021, 09/10/2020, Additional history exists Well Visit 65+ 10/07/2024 10/08/2023, 07/0 10/2022, 11/15/2022, Additional history exists Breast Cancer Screening-Mammogram 04/30/2025 04/30/2024, 09/17/2023, 08/17/2022, Additional history exists Fall Risk Assessment 07/06/2025 07/06/2024, 06/24/2024, 10/08/2023, Additional history exists Depression Screening 11/16/2025 11/16/2024, 08/06/2024, 07/06/2024, Additional history exists Osteoporosis Screening-Bone Density Scan 09/22/2026 09/22/2024 DTaP/Tdap/Td Vaccine (2 - Td or Tdap) 06/03/2033 06/03/2023 Colon Cancer Screening-Colonoscopy 08/27/2034 08/27/2024, 07/24/2021 Cervical Cancer Screening Discontinued 05/07/2017, Pneumococcal vaccine 65+ Completed 10/08/2023 Influenza Vaccine Completed 03/18/2024, , 03/20/2022, Additional history exists Colon Cancer Screening-DNA Stool Discontinued 08/28/19, 12/07/2017 Procedures Procedure Name Priority Date/Time Associated Diagnosis Comments POCT RAPID STREP Routine 11/16/2024 1:57 PM CDT Sore throat DEXA AXIAL SKELETON BONE DENSITY 1 OR MORE SITES Schedule Routine, Read Routine (OP Routine) 09/22/2024 1:42 PM CDT Menopause COLONOSCOPY Routine 08/27/2024 7:15 AM CDT MAMMOGRAPHY Routine 04/30/2024 3:05 PM GAME PROTECTOR THINPREP TYRE BUILDER PAP (IMAGE GUIDED) LIQUID-BASED PREP Routine 05/07/2017 2:00 PM GAME PROTECTOR from Last 3 Months or Most Recently Relevant to Health Maintenance Results * POCT rapid strep A (11/16/2024 1:57 PM CDT) Rapid Strep A, POC Negative Negative Swab 11/16/2024 1:57 PM CDT Joanna GAYLE POINT OF CARE TEST ORDERAB LES Final Result * Dexa Axial Skeleton Bone Density 1 or 2 Site (09/22/2024 1:42 PM CDT) [facility] SCRIBED DXA T-SCORE -0.8 SCRIBED DXA Z-SCORE 0.4 SCRIBED DXA BMD 0.895 Anatomical Region Laterality Modality Body N/A Radiographic Janelle ging Impressions 09/22/2024 1:42 PM CDT The patient has low bone mass, based on the left Femoral Neck T-Score. The patient has an estimated ten-year risk of hip fracture of 1.3% and an estimated ten-year risk of major fracture of 9.8%, based on the WHO FRAX algorithm. The BMD for the total Hip (left) decreased,changing by -4.1% since the last DXA exam. The BMD for the Total Hip (right) decreased,changing by -6.0% since the last DXA exam. Joanna GAYLE IMG DXA PROCEDURES Final R esult * HM COLONOSCOPY (08/27/2024 7:15 AM CDT) [facility] Scribed Colonoscopy Normal Historical Provider HEALTH MAINTENANCE Final Result * HM MAMMOGRAPHY (04/30/2024 3:05 PM GAME PROTECTOR) [facility] Mammography Normal Impressions Kely Fried MA - 04/30/2024 3:05 PM GAME PROTECTOR Bi-Rads Category 2- Benign findings [facility] Provider HEALTH MAINTENANCE Edited Result - Final * ThinPrep Gynecologic Pap Test (Image-guided), Liquid-based Preparation (05/07/2017 2:00 PM GAME PROTECTOR) [facility] CLINICAL INFORMATION [facility] HISTORICAL RESULTS Comment:Information not prov ided LMP: [facility] HISTORICAL RESULTS Comment:INFORMATION NOT PROV IDED PREV. PAP: [facility] HISTORICAL RESULTS Comment:INFORMATION NOT PROV IDED PREV. BX: [facility] HISTORICAL RESULTS Comment:INFORMATION NOT PROV IDED SOURCE: [...] has been evaluated with computer assisted technology. CYBER POLICY AND STRATEGY PLANNER: [facility] HISTORICAL RESULTS Comment: MLK, CT(ASCP) CT screening location: [place] [address] [place] [address] 05/07/2017 2:00 PM GAME PROTECTOR 05/16/2017 7:55 PM GAME PROTECTOR Narrative [facility] HISTORICAL RESULTS - 05/16/2017 7:42 PM GAME PROTECTOR FASTING: UNKNOWN PERFORMING LAB: , [facility] [place] [place] [address] [facility] [phone] Monty Pugh MD Historical Provider LAB PATHOLOGY ORDERABLES Final Result Performing Organization Address City/[facility]/ZIP Co de Phone Number [facility] HISTORICAL RESULTS from Last 3 Months or Most Recently Relevant to Health Maintenance Insurance [facility] [id number] [place] [id number] MEDICARE Care Teams Shrinker Relationship Specialty Start Date End Date Joanna Pacheco PA [address] [facility] [address] [place] [address] PCP - General Internal Medicine 03/26/19
--- OUTSIDE RECORDS SUMMARY | 2024-11-18 15:47 | XMS_ITS | Encounter Summary ---
Author Organization [facility] Healthcare Address [address] [place] [address] Care Team Providers Care Chief Mechanical Officer Name Role Phone Joanna Pacheco Primary Care Provider +1- [phone] Reason for Visit * Reason Onset Date Comments Additional Services Or Orders 10/19/2024 Encounter Details Date Type Department Care Team (Late st Contact Info) Description 10/19/2024 Telephone [facility] Medical Group Family Medicine [address] [place] [address] Joanna Pacheco PA [address] [place] [address] Additional Services Or Orders Social History Tobacco Use Types Packs/Day Years [...] on file Legal Sex Female 12:11 AM ENTERER Gender Identity Female 05/23/2020 1:48 PM ENTERER Sexual Orientation Straight 05/23/2020 1: 48 PM ENTERER Occupation Industry Job Start Date Job End Date Retired Not on file Not on file Not on file documented as of this encounter Miscellaneous Notes * Telephone Encounter - Yasmine Ventura LPN - 10/20/2024 8:45 AM CDT Pt reviewed [employer] message. * Telephone Encounter - Yasmine Ventura LPN - 10/20/2024 8:25 AM CDT Called pt with no answer. Sent [employer] message. * Telephone Encounter - Joanna Pacheco PA - 10/20/2024 2:09 AM CDT I think she is ok not doing any labs prior to her AWE in June * Telephone Encounter - Yasmine Ventura LPN - 10/19/2024 10:57 AM CDT Pt had labs done on 06/2024 and were normal. Does pt need any new labs before appt on 11/16/24? * Telephone Encounter - Becky Godoy - 10/19/2024 10:51 AM CDT Additional Services or Orders Type of Service Requested:Labs Reason for Request (e.g. condition/symptom, date of COVID exposure if applicable): [id number] Details Regarding Additional Services (e.g. type of home health, type of equipment, type of test, etc.): Labs Where will services be performed? (if outside of the practice, facility name, address, phone/fax offacility): [facility]- Address: [address] [place], [place] [address] Additional Comments: The patient does not want a Vitamin D test because it was not covered last time. . Does message need to be routed? Yes-Action Needed documented in this encounter Plan of Treatment Not on file documented as of this encounter Visit Diagnoses Not on filedocumented in this encounter Additional Health Concerns Infection Onset Date Last Indicated Resolved Time COVID: Suspected 11/16/2024 11/16/2024 11/16/2024 1:58 PM CDT documented as of this encounter Care Teams Chief Mechanical Officer Relationship Specialty Start Date End Date Joanna Pacheco PA [address] [place] [address] PCP - General Internal Medicine 03/26/19 documented as of this encounter
--- OUTSIDE RECORDS SUMMARY | 2024-11-18 15:47 | XMS_ITS | Encounter Summary ---
Author Organization [facility] Healthcare Address [address] [place] [address] Care Team Providers Care Linux Solaris Administrator Name Role Phone Joanna Pacheco Primary Care Provider +1- [phone] Encounter Details Date Type Department Care Team (Late st Contact Info) Description 11/17/2024 Telephone [facility] Medical Group Family Medicine [address] [place] [address] Joanna Pacheco PA [address] [place] [address] Social History Tobacco Use Types Packs/Day Years [...] on file Legal Sex Female 12:11 AM SEWER AND CUTTER FINGER BUFF MATERIAL Gender Identity Female 05/23/2020 1:48 PM SEWER AND CUTTER FINGER BUFF MATERIAL Sexual Orientation Straight 05/23/2020 1: 48 PM SEWER AND CUTTER FINGER BUFF MATERIAL Occupation Industry Job Start Date Job End Date Retired Not on file Not on file Not on file documented as of this encounter Ordered Prescriptions Prescription Sig Dispense Quantity Refills Last Filled Start Date End Date meloxicam (MOBIC) 15 mg tabletIndications: Pain of left hip Take 1 tablet (15 mg total) by mouth daily 90 tablet 1 11/17/2024 11/17/2025 documented in this encounter Miscellaneous Notes * Telephone Encounter - Yasmine Ventura LPN - 11/17/2024 10:30 AM CDT Medication increased per pt request. documented in this encounter Plan of Treatment Not on file documented as of this encounter Visit Diagnoses Diagnosis Pain of left hip- Primary documented in this encounter Discontinued Medications Medication Sig Discontinue Reason Start Date End Da te meloxicam (MOBIC) 7.5 mg tabletIndications:Hip pain, unspecified laterality Take 1 tablet (7.5 mg total) by mouth daily 06/24/2023 11/17/2024 documented as of this encounter Care Teams Linux Solaris Administrator Relationship Specialty Start Date End Date Joanna Pacheco PA [address] [facility] [address] [place] [address] PCP - General Internal Medicine 03/26/19 documented as of this encounter
--- OUTSIDE RECORDS SUMMARY | 2024-11-18 15:47 | XMS_ITS | Encounter Summary ---
Author Organization [facility] Facility Care Team Providers Care Crew Leader Gluing Name Role Phone Joanna Pacheco Primary Care Provider +1- [phone] Encounter Details Date Type Department Care Team (Latest Contact Info) Description 04/01/2017 Orders Only [facility] CLINCONV ProviderKristofer MD [address] [place] [id number] Social History Tobacco Use Types Packs/Day Years Used Date Smoking Tobacco: Never Assessed Comments Unknown Sex and Gender Information Value Date Recorded Sex Assigned at Not on file Legal Sex Female 12:11 AM TRANSPORTATION MUSEUM HELPER Gender Identity Female 05/23/2020 1:48 PM TRANSPORTATION MUSEUM HELPER Sexual Orientation Straight 05/23/2020 1: 48 PM TRANSPORTATION MUSEUM HELPER documented as of this encounter Plan of [...] COVID: Suspected 05/05/2024 05/05/2024 05/05/2024 6:39 PM TRANSPORTATION MUSEUM HELPER COVID: Suspected 11/16/2024 11/16/2024 11/16/2024 1:58 PM CDT documented as of this encounter Care Teams Crew Leader Gluing Relationship Specialty Start Date End Date Joanna Pacheco PA [address] [facility] [address] [place] [address] PCP - General Internal Medicine 03/26/19 documented as of this encounter
--- OUTSIDE RECORDS SUMMARY | 2024-11-18 15:47 | XMS_ITS | Encounter Summary ---
Author Organization [facility] Facility Care Team Providers Care Wood Machinist Name Role Phone Joanna Pacheco Primary Care Provider +1- [phone] Encounter Details Date Type Department Care Team (Latest Contact Info) Description 12/04/2017 Orders Only [facility] CLINCONV ProviderKristofer MD [address] [place] [address] Social History Tobacco Use Types Packs/Day Years Used Date Smoking Tobacco: Never Assessed Comments Unknown Sex and Gender Information Value Date Recorded Sex Assigned at Not on file Legal Sex Female 12:11 AM PLANT PRODUCTION MANAGER Gender Identity Female 05/23/2020 1:48 PM PLANT PRODUCTION MANAGER Sexual Orientation Straight 05/23/2020 1: 48 PM PLANT PRODUCTION MANAGER documented as of this encounter Plan of [...] COVID: Suspected 05/05/2024 05/05/2024 05/05/2024 6:39 PM PLANT PRODUCTION MANAGER COVID: Suspected 11/16/2024 11/16/2024 11/16/2024 1:58 PM CDT documented as of this encounter Care Teams Wood Machinist Relationship Specialty Start Date End Date Joanna Pacheco PA [address] [facility] [address] [place] [address] PCP - General Internal Medicine 03/26/19 documented as of this encounter
--- OUTSIDE RECORDS SUMMARY | 2024-11-18 15:47 | XMS_ITS | Encounter Summary ---
Author Organization [facility] Healthcare Address [address] [place] [address] Care Team Providers Care Junior Technical Writer Name Role Phone Joanna Pacheco Primary Care Provider +1- [phone] Encounter Details Date Type Department Care Team (Late st Contact Info) Description 04/30/2024 Orders Only [facility] Information Management [address] [place] [address] Scanning, Provider Social History Tobacco Use [...] on file Legal Sex Female 12:11 AM ELECTRONIC DEVICE MONITOR Gender Identity Female 05/23/2020 1:48 PM ELECTRONIC DEVICE MONITOR Sexual Orientation Straight 05/23/2020 1: 48 PM ELECTRONIC DEVICE MONITOR Occupation Industry Job Start Date Job End [...] COVID: Suspected 05/05/2024 05/05/2024 05/05/2024 6:39 PM ELECTRONIC DEVICE MONITOR COVID: Suspected 11/16/2024 11/16/2024 11/16/2024 1:58 PM CDT documented as of this encounter Care Teams Junior Technical Writer Relationship Specialty Start Date End Date Joanna Pacheco PA [address] [facility] [address] [place] [address] PCP - General Internal Medicine 03/26/19 documented as of this encounter
--- OUTSIDE RECORDS SUMMARY | 2024-11-18 15:47 | XMS_ITS | Referral Summary ---
Author Organization [address] Address [address] [place] [id number] Care Team Providers Care Gate Mortiser Operator Name Role Phone Joanna Pacheco Primary Care Provider +1- [phone] Encounters Date Type Department Care Team Description 11/18/[address] [place] [address] Joanna Pacheco PA 11/17/[address] [place] [address] Joanna Pacheco PA 11/16/2024 1:30 PM CDT Office Visit [address] [place] [address] Joanna Pacheco PA BMI 26.0-26.9,adult (Primary Dx); Sore throat; Nasal congestion 10/30/2024 Telephone [facility] Internal Medicine at [address] [place] [address] Joanna Pacheco PA 10/19/[address] [place] [address] Joanna Pacheco PA Additional Services Or Orders 10/06/2024 Results Follow-Up [address] [place] [address] Joanna Pacheco PA Dexa Axial Skeleton Bone Density 1 or 2 Site 10/02/2024 Telephone [facility] Medical Group Family Medicine [address] [facility] [address] [place] [address] Joanan Pacheco PA from Last 3 Months Allergies Active Allergy [...] maintain. Assessment & Plan (08/06/2024 11:45 AM ARCHITECTURAL EXAMINER): Patient is getting to a nice weight with the help with the Wegovy 2.4. Continue with healthy eating exercise and continue to monitor. Assessment & Plan (07/19/2024 2:24 PM ARCHITECTURAL EXAMINER): Doing well with weight loss efforts with the Wegovy. Assessment & Plan (06/24/2024 12:38 PM ARCHITECTURAL EXAMINER): Weight/BMI is in healthy range. Continue healthy [...] 06/24/2024 Assessment & Plan (06/24/2024 12:37 PM ARCHITECTURAL EXAMINER): Check DEXA Breast cancer screening by mammogram 06/24/2024 Assessment & Plan (06/24/2024 12:37 PM ARCHITECTURAL EXAMINER): Mammogram order provided Prediabetes 01/09/2024 Assessment & Plan (06/24/2024 12:36 PM ARCHITECTURAL EXAMINER): Pre-diabetes/hyperglycemia is a precursor to Dm. Stressed [...] both Assessment & Plan (06/30/2023 3:08 PM ARCHITECTURAL EXAMINER): Patient has persistent hip pain. Mobvicki is helping. Will continue to monitor Hypertension, [...] medication Assessment & Plan (06/30/2023 3:07 PM ARCHITECTURAL EXAMINER): Bp is stable/in acceptable range for any co-morbidities. Encouraged to limit sodium intake and exercise for weight control. Lisinopril 5 Assessment & Plan (06/03/2023 1:01 PM ARCHITECTURAL EXAMINER): Bp is stable/in acceptable range for any [...] Follow-up with readings in 1-2 weeks by MyChart or sooner for any other problems or [...] 11/30/2022 Assessment & Plan (08/06/2024 11:45 AM ARCHITECTURAL EXAMINER): Patient has significant fatigue. It appears as [...] results Assessment & Plan (07/19/2024 2:24 PM ARCHITECTURAL EXAMINER): Patient has been doing great with her [...] 07/13/2019 Assessment & Plan (07/13/2019 9:03 AM ARCHITECTURAL EXAMINER): History of diverticulitis -- Watch diet and increase fluids. Call if has sxs to avoid possible complications Anxiety 05/07/2017 Overview (09/02/2020): Mostly with driving Assessment & Plan (08/06/2024 11:44 AM ARCHITECTURAL EXAMINER): Mood is stable and probably a little improved with her calories. Continue Lexapro and BuSpar Assessment & Plan (06/24/2024 12:36 PM ARCHITECTURAL EXAMINER): Stable with Lexapro 10 and BuSpar 10 [...] bruxism Assessment & Plan (06/30/2023 3:08 PM ARCHITECTURAL EXAMINER): Stable with Lexapro 10. Still having some [...] grinding. Assessment & Plan (07/13/2019 9:06 AM ARCHITECTURAL EXAMINER): Pt is managing sxs with behavior modification. Plans to continue to monitor Mixed hyperlipidemia 05/07/2017 Assessment & Plan (06/24/2024 12:36 PM ARCHITECTURAL EXAMINER): Encouraged patient to follow low fat/low chol [...] 10 Assessment & Plan (06/30/2023 3:07 PM ARCHITECTURAL EXAMINER): Encouraged patient to follow low fat/low chol [...] labs Assessment & Plan (07/13/2019 9:05 AM ARCHITECTURAL EXAMINER): This is a significant, separately identifiable problem [...] 10/12/2023 Assessment & Plan (06/30/2023 3:08 PM ARCHITECTURAL EXAMINER): Patient is being treated. Will continue to [...] provided. Assessment & Plan (06/30/2023 3:07 PM ARCHITECTURAL EXAMINER): Discussed the patient's BMI. The BMI is above average. BMI management plan is completed. BMI Follow-up includes: nutrition counseling, exercise counseling and education provided. BMI 33.0-33.9,adult 06/03/2023 06/30/19 Assessment & Plan (06/03/2023 1:01 PM ARCHITECTURAL EXAMINER): Discussed the patient's BMI. The BMI is above average. BMI management plan is completed. BMI Follow-up includes: nutrition counseling, exercise counseling and education provided. Left hip pain 06/03/2023 06/30/2023 Assessment & Plan (06/03/2023 1:02 PM ARCHITECTURAL EXAMINER): Patient notes left hip pain that is radiating to the groin. Has not had an x-ray done. Does respond nicely to NSAIDs so she can continue with those. Follow-up pending the x-rays Need for Tdap vaccination 06/03/2023 Assessment & Plan (06/03/2023 1:02 PM ARCHITECTURAL EXAMINER): Tdap updated in the office today Obesity [...] provided. Assessment & Plan (06/30/2023 3:06 PM ARCHITECTURAL EXAMINER): Insert obesity Assessment & Plan (06/03/2023 11:26 AM ARCHITECTURAL EXAMINER): Discussed the patients BMI: The BMI is [...] counseling and education provided. Obesity (BMI 30.0-34.9) 04/14/2022/06/2022 Assessment & Plan (04/14/2022 8:23 PM CDT): [...] 07/10/20212021 Assessment & Plan (07/10/2021 7:59 AM ARCHITECTURAL EXAMINER): Obesity is unchanged. Discussed the patient's BMI. The BMI is above average. BMI management plan is completed. BMI Follow-up includes: nutrition counseling, exercise counseling and education provided. BMI 31.0-31.9,adult 07/10/2021 02/23/20 Assessment & Plan (07/10/2021 7:59 AM ARCHITECTURAL EXAMINER): Obesity is unchanged. Discussed the patient's BMI. The BMI is above average. BMI management plan is completed. BMI Follow-up includes: nutrition counseling, exercise counseling and education provided. Plantar fasciitis of left foot 07/10/2021 10/12/2023 Assessment & Plan (07/10/2021 9:04 AM ARCHITECTURAL EXAMINER): Symptoms appear to be most consistent with [...] 10/12/2023 Assessment & Plan (07/10/2021 9:06 AM ARCHITECTURAL EXAMINER): Patient has noted visual changes over the last 6-8 weeks. She was evaluated in [place] and told had a leak behind the eye she has noticed continued floaters and flashes her so he can as well as decrease in acuity. Stressed importance of following up with Ophthalmology. Provided options and she prefers to be seen in [place]. Provided the name of Dr. abbott her [...] PM CDT): Check labs Obesity (BMI 30-39.9) 01/11/20211 Assessment & Plan (01/11/2021 1:36 PM CDT): [...] provided. Assessment & Plan (05/25/2020 3:23 PM ARCHITECTURAL EXAMINER): Obesity is unchanged. Discussed the patient's BMI. The BMI is above average. BMI management plan is completed. BMI Follow-up includes: nutrition counseling, exercise counseling and education provided. BMI 30.0-30.9,adult 07/13/2019 05/25/20 Assessment & Plan (07/13/2019 9:06 AM ARCHITECTURAL EXAMINER): Obesity is unchanged. Discussed the patient's BMI. [...] visit. Assessment & Plan (07/13/2019 9:05 AM ARCHITECTURAL EXAMINER): Encouraged healthy lifestyle, good nutrition and exercise. Encouraged Calcium and Vitamin D and weight bearing exercise for bone health. Reviewed immunizations Reviewed age appropirate screenings. Breast cancer screening by mammogram 07/13/2019 10/12/2023 Assessment & Plan (04/16/2023 8:43 PM CDT): Mammogram order provided Assessment & Plan (04/14/2022 8:22 PM CDT): Mammogram order provided Assessment & Plan (07/13/2019 9:06 AM ARCHITECTURAL EXAMINER): Mammogram order provided Influenza vaccine refused 07/13/2019 Assessment & Plan (07/13/2019 9:06 AM ARCHITECTURAL EXAMINER): Encouraged vaccine. Reviewed risks/ benefits. Patient refuses and accepts risks. Chronic kidney disease (CKD) , stage III (moderate) 07/13/2019 07/17/2020 Assessment & Plan (07/13/2019 9:08 AM ARCHITECTURAL EXAMINER): This is a significant, separately identifiable problem that was evaluated and managed on the same day as the wellness exam This is the first time her GFR has dropped below 60. Avoid nephrotoxic drugs including NSAIDs. Monitor labs. Diverticulitis 06/24/2018 10/12/2023 Overview (09/02/2020): 06/2018 [facility] Assessment & Plan (04/14/2022 8:23 PM CDT): [...] plan. Assessment & Plan (05/25/2020 11:15 PM ARCHITECTURAL EXAMINER): Complete flagyl and cipro. BRAT diet and [...] maintain. Assessment & Plan (05/25/2020 11:16 PM ARCHITECTURAL EXAMINER): Obesity is unchanged. Discussed the patient's BMI. [...] on file Legal Sex Female 12:11 AM ARCHITECTURAL EXAMINER Gender Identity Female 05/23/2020 1:48 PM ARCHITECTURAL EXAMINER Sexual Orientation Straight 05/23/2020 1: 48 PM ARCHITECTURAL EXAMINER Occupation Industry Job Start Date Job End Date Retired Not on file Not on file Not on file Last Filed Vital Signs Vital Sign Reading Time Taken Comments Blood Pressure 124/80 11/16/2024 1:43 PM CDT Pulse 81 11/16/2024 1:43 PM CDT Temperature 36.5 C (97.7 F) 11/16/2024 1:43 PM CDT Respiratory Rate 18 05/05/2024 5:55 PM ARCHITECTURAL EXAMINER Oxygen Saturation 98% 11/16/2024 1:43 PM CDT Inhaled Oxygen Concentration - - Weight 76.5 kg (168 lb 11.8 oz) 11/16/2024 1:43 PM CDT Height 170.2 cm (5' 7) 08/06/2024 11:0 4 AM ARCHITECTURAL EXAMINER Body Mass Index 26.43 08/06/2024 11:04 AM ARCHITECTURAL EXAMINER Plan of Treatment Not on file Procedures Procedure Name Priority Date/Time Associated Diagnosis Comments POCT RAPID STREP Routine 11/16/2024 1:57 PM CDT Sore throat DEXA AXIAL SKELETON BONE DENSITY 1 OR MORE SITES Schedule Routine, Read Routine (OP Routine) 09/22/2024 1:42 PM CDT Menopause COLONOSCOPY Routine 08/27/2024 7:15 AM CDT MAMMOGRAPHY Routine 04/30/2024 3:05 PM ARCHITECTURAL EXAMINER THINPREP PACK CHANGER PAP (IMAGE GUIDED) LIQUID-BASED PREP Routine 05/07/2017 2:00 PM ARCHITECTURAL EXAMINER from Last 3 Months or Most Recently Relevant to Health Maintenance Results * POCT rapid strep A (11/16/2024 1:57 PM CDT) Rapid Strep A, POC Negative Negative Swab 11/16/2024 1:57 PM CDT us Joanna GAYLE POINT OF CARE TEST ORDERAB LES Final Result * Dexa Axial Skeleton Bone Density 1 or 2 Site (09/22/2024 1:42 PM CDT) [facility] SCRIBED DXA T-SCORE -0.8 SCRIBED DXA [...] * HM COLONOSCOPY (08/27/2024 7:15 AM CDT) [facility] Scribed Colonoscopy Normal [facility] Provider HEALTH MAINTENANCE Final Result * HM MAMMOGRAPHY (04/30/2024 3:05 PM ARCHITECTURAL EXAMINER) [facility] Mammography Normal Impressions Kely Fried MA - 04/30/2024 3:05 PM ARCHITECTURAL EXAMINER Bi-Rads Category 2- Benign findings [facility] Provider HEALTH MAINTENANCE Edited Result - Final * ThinPrep Gynecologic Pap Test (Image-guided), Liquid-based Preparation (05/07/2017 2:00 PM ARCHITECTURAL EXAMINER) [facility] CLINICAL INFORMATION [facility] HISTORICAL RESULTS Comment:Information not prov ided LMP: [facility] HISTORICAL RESULTS Comment:INFORMATION NOT PROV IDED PREV. PAP: [facility] HISTORICAL RESULTS Comment:INFORMATION NOT PROV IDED PREV. [...] has been evaluated with computer assisted technology. ASSISTANT PLANT CONTROLLER: [facility] HISTORICAL RESULTS Comment: MLK, CT(ASCP) CT screening location: [place] [address] [place] [address] 05/07/2017 2:00 PM ARCHITECTURAL EXAMINER 05/16/2017 7:55 PM ARCHITECTURAL EXAMINER Narrative [facility] HISTORICAL RESULTS - 05/16/2017 7:42 PM ARCHITECTURAL EXAMINER FASTING: UNKNOWN PERFORMING LAB: , [facility] [employer] [facility] [address] [facility] [phone] Monty Pugh MD us Historical Provider LAB PATHOLOGY ORDERABLES Final Result [facility] HISTORICAL RESULTS from Last 3 Months or Most Recently Relevant to Health Maintenance Insurance [facility] [id number] [facility] MEDICARE Care Teams Gate Mortiser Operator Relationship Specialty Start Date End Date Joanna Pacheco PA [facility] [facility] [address] [place] [address] PCP - General Internal Medicine 03/26/19
--- OUTSIDE RECORDS SUMMARY | 2024-11-18 15:47 | XMS_ITS | Clinical Summary ---
Author Organization [facility] Address [address] [facility] [place] [address] Care Team Providers Care Director Of Web Marketing Name Role Phone Mary Paredes MD Primary Care Provider + Source Comments [facility],non-owned Affiliates and Associated Physician Practices is amultiple site organization consisting of ambulatory clinics and hospital sitesin [place], [place], [place] and [place]. This disclosure is being madepursuant to the Care Everywhere program and may not contain all information available regarding this patient. Last updated 18.[facility] Allergies Active Allergy Reactions Criticality Noted Date Comments Nitrofurantoin GI Discomfort 08/03/2016 Sulfa Drugs 08/01/2016 Medications * Be aware that medications may not be up to date on this document. Alwaysverify current medications with the patient. No known medications Social History Tobacco Use Types Packs/Day Years Used Date Smoking Tobacco: Never Comments Unknown Sex and Gender Information Value Date Recorded Sex Assigned at Not on file Legal Sex Female 6:27 AM LECTURER OF [place]UG[place]E Gender Identity Not on file Sexual Orientation Not on file Last Filed Vital Signs Vital Sign Reading Time Taken Comments Blood Pressure 136/82 08/01/2016 11:53 AM LECTURER OF [place]UES[place] Pulse 67 08/01/2016 11:53 AM LECTURER OF PORTUGUESE Temperature 37 C (98.6 F) 08/01/2016 11:53 AM LECTURER OF PORTUGUESE Respiratory Rate 16 08/01/2016 11:53 AM LECTURER OF PORTUGUESE Oxygen Saturation 98% 08/01/2016 11:53 AM LECTURER OF PORTUGUESE Inhaled Oxygen Concentration - - Weight 81.6 kg (180 lb) 08/01/2016 11:53 AM LECTURER OF PORTUGUESE Height 172.7 cm (5' 8) 08/01/2016 11:53 AM LECTURER OF PORTUGUESE Body Mass Index 27.37 08/01/2016 11:53 AM LECTURER OF PORTUGUESE Plan of Treatment Health Maintenance Due Date Last Done Comments BONE DENSITY TESTING 1960 COLOGUARD (AGES 45-75) - COL ON CA SCREENING 1958 COLON MONITORING 1958 COLONOSCOPY - COLON CA SCREENING 1958 CT COLONOGRAPHY - COLON CA SCREENING 1960 Colorectal Cancer Screening 1958 FIT - COLON CA SCREENING 1958 FLEX SIG - COLON CA SCREENING 1958 LIPID TESTING 1958 MAMMOGRAM 1958 HEPATITIS C SCREENING 09/20/1976 DTAP/TDAP/TD VACCINES (1 - Tdap) 1977 PNEUMOCOCCAL VACCINE 50+ (1 of 1 - PCV) 2008 ZOSTER VACCINE (1 of 2) 2008 COVID-19 VACCINE (1 - 2023-2 5 season) 2024 DEPRESSION SCREENING [...] on patient's age to complete this topic Insurance [employer] Care Teams Director Of Web Marketing Relationship Specialty Start Date End Date Mary Paredes MD [id number] [facility] [address] [place] [address] PCP - General Family Medicine 08/01/16
--- OUTSIDE RECORDS SUMMARY | 2024-11-18 15:47 | XMS_ITS | Encounter Summary ---
Author Organization [facility] Facility Care Team Providers Care Yarding Engineer Name Role Phone Joanna Pacheco Primary Care Provider +1- [phone] Encounter Details Date Type Department Care Team (Latest Contact Info) Description 05/31/2017 Orders Only [facility] CLINCONV ProviderKristofer MD [address] [place] [address] Social History Tobacco Use Types Packs/Day Years Used Date Smoking Tobacco: Never Assessed Comments Unknown Sex and Gender Information Value Date Recorded Sex Assigned at Not on file Legal Sex Female 12:11 AM SACK CLEANING HAND Gender Identity Female 05/23/2020 1:48 PM SACK CLEANING HAND Sexual Orientation Straight 05/23/2020 1: 48 PM SACK CLEANING HAND documented as of this encounter Plan of Treatment Not on file documented as of this encounter Procedures Procedure Name Priority Date/Time Associated Diagnosis Comments PROCEDURE - RESULT 06/20/2017 12 :00 AM SACK CLEANING HAND documented in this encounter Results * PROCEDURE - RESULT (06/20/2017 12:00 AM SACK CLEANING HAND) Narrative 06/20/2017 12:00 AM SACK CLEANING HAND Ordered by an unspecified provider. Historical Provider Final Res ult documented in this encounter Visit Diagnoses Not on filedocumented in this encounter Additional Health Concerns Infection Onset Date Last Indicated Resolved Time COVID: Suspected 05/05/2024 05/05/2024 05/05/2024 6:39 PM SACK CLEANING HAND COVID: Suspected 11/16/2024 11/16/2024 11/16/2024 1:58 PM CDT documented as of this encounter Care Teams Yarding Engineer Relationship Specialty Start Date End Date Joanna Pacheco PA [address] [facility] [address] [place] [address] PCP - General Internal Medicine 03/26/19 documented as of this encounter
--- OUTSIDE RECORDS SUMMARY | 2024-11-18 15:47 | XMS_ITS | Encounter Summary ---
Author Organization [facility] Healthcare Address [address] [place] [address] Care Team Providers Care Senior Climate Advisor Name Role Phone Joanna Pacheco Primary Care Provider +1- [phone] Encounter Details Date Type Department Care Team (Late st Contact Info) Description 11/18/2024 Telephone [facility] Medical Group Family Medicine [address] [place] [address] Joanna Pacheco PA [address] [facility] [address] [place] [address] Social History Tobacco Use Types [...] on file Legal Sex Female 12:11 AM CATTLE TESTER Gender Identity Female 05/23/2020 1:48 PM CATTLE TESTER Sexual Orientation Straight 05/23/2020 1: 48 PM CATTLE TESTER Occupation Industry Job Start Date Job End Date Retired Not on file Not on file Not on file documented as of this encounter Ordered Prescriptions Prescription Sig Dispense Quantity Refills Last Filled Start Date End Date doxycycline (VIBRAMYCIN) 100 mg capsuleIndications: Acute non-recurrent sinusitis, unspecified location Take 1 tablet/caps ule (100 mg total) by mouth 2 (two) times a day for 10 days 20 tablet/capsule 11/18/2024 11/28/2024 documented in this encounter Miscellaneous Notes * Telephone Encounter - Yasmine Ventura LPN - 11/18/2024 1:07 PM CDT Sent per PCP documented in this encounter Plan of Treatment Not on file documented as of this encounter Visit Diagnoses Diagnosis Acute non-recurrent sinusitis, unspecified location- Primary documented in this encounter Discontinued Medications Medication Sig Discontinue Reason Start Date End Da te amoxicillin (AMOXIL) 875 mg tablet Take 1 tablet (875 mg total) by mouth 2 (two) times a day for 10 days 11/16/2024 11/18/2024 documented as of this encounter Care Teams Senior Climate Advisor Relationship Specialty Start Date End Date Joanna Pacheco PA [address] [facility] [address] [place] [address] PCP - General Internal Medicine 03/26/19 documented as of this encounter
== END 2024-11-18 15:46 | disposition home or self-care (01) ==
LOC: ANHIMG 15:46
PROVIDERS: PCP Physician Assistant; Visit Provider Physician Assistant
DX: Z12.31 Encounter for screening mammogram for malignant neoplasm of breast (principal)
CPT/HCPCS: 77063; 77067

== ENCOUNTER 2024-12-03 13:01 | Emergency (ER) | payer MEDICARE, OTHER, SELFPAY ==
--- NOTE | ~2024-12-03 | CT_ITS ---
CT abdomen pelvis w con Ordering provider: Amber Caba PA-C History: 64 years Female with . LLQ Pain, hx diverticulitis . Comparison: None. Technique: CT abdomen and pelvis with IV and without oral contrast. Automated exposure control and it erative reconstruction technique were employed. The dose-length product was 436.41 mGy-cm. 100 mL Omn ipaque 350 was given IV. Findings: VISUALIZED LOWER CHEST: Dependent atelectatic changes. UPPER ABDOMINAL ORGANS: Liver: Fat infiltration. Gallbladder: Normal. Spleen: Normal. Stomach/duodenum: Normal. Pancreas: Normal. Adrenals: Normal. Kidneys: Stone in the right kidney mid pole measuring 5.2 mm. Small cyst also seen in the right kidne y upper pole. PELVIC ORGANS: The bladder is underfilled. BOWEL AND MESENTERY: Colon: Thickened sigmoid colon is seen with diverticulitis. Other differential include colitis and in filtrative mass. Sigmoidoscopy is advised. Minimal fluid is seen around the sigmoid colon with no def inite abscess formation. The colon is loaded with fecal material. Normal appendix. Small Bowel: Normal. No obstruction. Peritoneum/mesentery: No free air. Minimal free fluid adjacent to the sigmoid colon. No mesenteric ly mphadenopathy. RETROPERITONEUM: Mild atheromatous disease of the abdominal aorta. No retroperitoneal lymphadenopat hy. MUSCULOSKELETAL: Superficial soft tissues: The superficial soft tissues are normal. Bones: Age appropriate degenerative changes of the spine. IMPRESSION: 1. No evidence of appendicitis or intestinal obstruction. Thickening of the sigmoid colon with surro unding fluid suggestive of diverticulitis. Other differential include colitis and infiltrative proces s. Follow-up advised. 2. Fat infiltration of the liver. 3. Right kidney stone. 4. Constipation. Reviewed, dictated and finalized at location A. IMPRESSION: 1. No evidence of appendicitis or intestinal obstruction. Thickening of the si gmoid colon with surrounding fluid suggestive of diverticulitis. Other differen tial include colitis and infiltrative process. Follow-up advised. 2. Fat infiltration of the liver. 3. Right kidney stone. 4. Constipation.
[2024-12-03 13:10] VITALS: BP 125/72; PULSE 90; RESP 16; TEMP 36.3; O2SAT 99
--- OUTSIDE RECORDS SUMMARY | 2024-12-03 13:19 | XMS_ITS | Encounter Summary ---
Author Organization [facility] Healthcare Address [address] [place] [address] Care Team Providers Care Superintendent Pier Name Role Phone Joanna Pacheco Primary Care Provider +1- [phone] Encounter Details Date Type Department Care Team (Late st Contact Info) Description 04/30/2024 Orders Only [facility] Health Information Management [address] [place] [address] Scanning, Provider Social History Tobacco Use [...] on file Legal Sex Female 12:11 AM PANEL EDGE SEALER Gender Identity Female 05/23/2020 1:48 PM PANEL EDGE SEALER Sexual Orientation Straight 05/23/2020 1: 48 PM PANEL EDGE SEALER Occupation Industry Job Start Date Job End [...] COVID: Suspected 05/05/2024 05/05/2024 05/05/2024 6:39 PM PANEL EDGE SEALER COVID: Suspected 11/16/2024 11/16/2024 11/16/2024 1:58 PM CDT documented as of this encounter Care Teams Superintendent Pier Relationship Specialty Start Date End Date Joanna Pacheco PA [address] [facility] [address] [place] [address] PCP - General Internal Medicine 03/26/19 documented as of this encounter
--- OUTSIDE RECORDS SUMMARY | 2024-12-03 13:19 | XMS_ITS | Encounter Summary ---
Author Organization [facility] Facility Care Team Providers Care Animal Bounty Hunter Name Role Phone Joanna Pacheco Primary Care Provider +1- [phone] Encounter Details Date Type Department Care Team (Latest Contact Info) Description 05/31/2017 Orders Only [facility] CLINCONV ProviderKristofer MD [address] [place] [address] Social History Tobacco Use Types Packs/Day Years Used Date Smoking Tobacco: Never Assessed Comments Unknown Sex and Gender Information Value Date Recorded Sex Assigned at Not on file Legal Sex Female 12:11 AM DIGITAL MARKETING APPRENTICE Gender Identity Female 05/23/2020 1:48 PM DIGITAL MARKETING APPRENTICE Sexual Orientation Straight 05/23/2020 1: 48 PM DIGITAL MARKETING APPRENTICE documented as of this encounter Plan of Treatment Not on file documented as of this encounter Procedures Procedure Name Priority Date/Time Associated Diagnosis Comments PROCEDURE - RESULT 06/20/2017 12 :00 AM DIGITAL MARKETING APPRENTICE documented in this encounter Results * PROCEDURE - RESULT (06/20/2017 12:00 AM DIGITAL MARKETING APPRENTICE) Narrative 06/20/2017 12:00 AM DIGITAL MARKETING APPRENTICE Ordered by an unspecified provider. Historical Provider Final Res ult documented in this encounter Visit Diagnoses Not on filedocumented in this encounter Additional Health Concerns Infection Onset Date Last Indicated Resolved Time COVID: Suspected 05/05/2024 05/05/2024 05/05/2024 6:39 PM DIGITAL MARKETING APPRENTICE COVID: Suspected 11/16/2024 11/16/2024 11/16/2024 1:58 PM CDT documented as of this encounter Care Teams Animal Bounty Hunter Relationship Specialty Start Date End Date Joanna Pacheco PA [address] [facility] [address] [place] [address] PCP - General Internal Medicine 03/26/19 documented as of this encounter
--- OUTSIDE RECORDS SUMMARY | 2024-12-03 13:19 | XMS_ITS | Clinical Summary ---
Author Organization [facility] Address [address] [place] [address] Care Team Providers Care Maintenance Shop Technician Name Role Phone None, Provider MD Primary [...] 1976 Zoster Vaccines (1 of 2) 2008 Annual Medicare Wellness Visit 09/26/2023 Dexa Scan (General) 09/26/2023 COVID-19 Vaccine (2023-2 5 season) 2024 09/10/2020, 08/19/2020 Mammogram Screening 10/22/2025 10/23/2023 DTaP, Tdap and Td Vaccines ( 2 - Td or Tdap) 06/03/2033 06/03/2023 RSV Immunization or 60+ Years (1 - 1-dose 75+ series) 2033 Pneumococcal Vaccine: 50+ Years Completed 10/08/2023 Meningococcal B Vaccine Aged Out No l [...] Recently Relevant to Health Maintenance Insurance MEDICARE [employer] [facility] Care Teams Maintenance Shop Technician Relationship Specialty Start Date End Date None, Provider, PCP - General UNKNOWN PHYSICIAN SPECIALTY 10/23/23
--- OUTSIDE RECORDS SUMMARY | 2024-12-03 13:19 | XMS_ITS | Encounter Summary ---
Author Organization [facility] Facility Care Team Providers Care Dry Cans Operator Name Role Phone Joanna Pacheco Primary Care Provider +1- [phone] Encounter Details Date Type Department Care Team (Latest Contact Info) Description 12/04/2017 Orders Only [facility] CLINCONV ProviderKristofer MD [address] [place] [address] Social History Tobacco Use Types Packs/Day Years Used Date Smoking Tobacco: Never Assessed Comments Unknown Sex and Gender Information Value Date Recorded Sex Assigned at Not on file Legal Sex Female 12:11 AM ELECTRICAL CONTACTS ADJUSTER Gender Identity Female 05/23/2020 1:48 PM ELECTRICAL CONTACTS ADJUSTER Sexual Orientation Straight 05/23/2020 1: 48 PM ELECTRICAL CONTACTS ADJUSTER documented as of this encounter Plan of [...] COVID: Suspected 05/05/2024 05/05/2024 05/05/2024 6:39 PM ELECTRICAL CONTACTS ADJUSTER COVID: Suspected 11/16/2024 11/16/2024 11/16/2024 1:58 PM CDT documented as of this encounter Care Teams Dry Cans Operator Relationship Specialty Start Date End Date Joanna Pacheco PA [address] [facility] [address] [place] [address] PCP - General Internal Medicine 03/26/19 documented as of this encounter
--- OUTSIDE RECORDS SUMMARY | 2024-12-03 13:19 | XMS_ITS | Clinical Summary ---
Author Organization [facility] Address [address] [facility] [place] [address] Care Team Providers Care Lokie Engineer Name Role Phone Mary Paredes MD Primary Care Provider + Source Comments [facility],non-owned Affiliates and Associated Physician Practices is amultiple site organization consisting of ambulatory clinics and hospital sitesin [place], [place], [place]. This disclosure is being madepursuant to the Care Everywhere program and may not contain all information available regarding this patient. Last updated 18.[facility] Allergies Active Allergy Reactions Criticality Noted Date [...] on file Legal Sex Female 6:27 AM HANDS HANGER Gender Identity Not on file Sexual Orientation Not on file Last Filed Vital Signs Vital Sign Reading Time Taken Comments Blood Pressure 136/82 08/01/2016 11:53 AM HANDS HANGER Pulse 67 08/01/2016 11:53 AM HANDS HANGER Temperature 37 C (98.6 F) 08/01/2016 11:53 AM HANDS HANGER Respiratory Rate 16 08/01/2016 11:53 AM HANDS HANGER Oxygen Saturation 98% 08/01/2016 11:53 AM HANDS HANGER Inhaled Oxygen Concentration - - Weight 81.6 kg (180 lb) 08/01/2016 11:53 AM HANDS HANGER Height 172.7 cm (5' 8) 08/01/2016 11:53 AM HANDS HANGER Body Mass Index 27.37 08/01/2016 11:53 AM HANDS HANGER Plan of Treatment Health Maintenance Due Date [...] patient's age to complete this topic Insurance [employer] Care Teams Lokie Engineer Relationship Specialty Start Date End Date Mary Paredes MD [address] [facility] [address] [place] [address] PCP - General Family Medicine 08/01/16
--- OUTSIDE RECORDS SUMMARY | 2024-12-03 13:19 | XMS_ITS | Encounter Summary ---
Author Organization [facility] Address [address] [place] [address] Care Team Providers Care Torque Tester Name Role Phone Joanna Pacheco Primary Care Provider +1- [phone] Encounter Details Date Type Department Care Team (Late st Contact Info) Description 10/06/2024 Results Follow-Up [facility] Family Medicine [address] [place] [address] Joanna Pacheco PA [address] [facility] [address] [place] [address] Dexa Axial Skeleton Bone Density 1 or 2 Site, Screening Mammogram Bilateral W Venancio Social History Tobacco Use Types Packs/Day Years [...] on file Legal Sex Female 12:11 AM NURSING UNIT COORDINATOR Gender Identity Female 05/23/2020 1:48 PM NURSING UNIT COORDINATOR Sexual Orientation Straight 05/23/2020 1: 48 PM NURSING UNIT COORDINATOR Occupation Industry Job Start Date Job End Date Retired Not on file Not on file Not on file documented as of this encounter Miscellaneous Notes * Result Encounter Note - Joanna Pacheco PA - 11/19/2024 9:33 PM CDT Let pt know her mammogram is normal and will plan to repeat in 1 year. documented in this encounter Plan of Treatment Not on file documented as of this encounter Visit Diagnoses Not on filedocumented in this encounter Additional Health Concerns Infection Onset Date Last Indicated Resolved Time COVID: Suspected 11/16/2024 11/16/2024 11/16/2024 1:58 PM CDT documented as of this encounter Care Teams Torque Tester Relationship Specialty Start Date End Date Joanna Pacheco PA [address] [facility] [address] [place] [address] PCP - General Internal Medicine 03/26/19 documented as of this encounter
--- OUTSIDE RECORDS SUMMARY | 2024-12-03 13:19 | XMS_ITS | Referral Summary ---
Author Organization [address] Address [address] [place] [id number] Care Team Providers Care Marine Steward Name Role Phone Joanna Pacheco Primary Care Provider +1- [phone] Encounters Date Type Department Care Team Description 11/30/[address] [place] [phone] Joanna Pacheco PA 11/20/[address] [place] [phone] Joanna Pacheco PA 11/18/[address] [place] [phone] Joanna Pacheco PA 11/17/[address] [place] [address] Joanna Pacheco PA 11/16/2024 1:30 PM CDT Office Visit [address] [place] [phone] Joanna Pacheco PA Otitis, unspecified laterality (Primary Dx); Nasal congestion; Sore throat; Primary osteoarthritis, unspecified site; Osteopenia of multiple sites; Anxiety; BMI 26.0-26.9,adult 10/30/2024 Telephone [facility] Internal Medicine at [address] [place] [phone] Joanna Pacheco PA 10/19/2024 Telephone [facility] [address] [facility] [address] [place] [address] Joanna Pacheco PA Additional Services Or Orders 10/06/2024 Results Follow-Up [facility] [address] [facility] [address] [place] [address] Joanna Pacheco PA Dexa Axial Skeleton Bone Density 1 or 2 Site, Screening Mammogram Bilateral W Venancio 10/02/2024 Telephone [facility] [address] [facility] [address] [place] [address] Joanna Pacheco PA from Last 3 Months Allergies Active Allergy Reactions Criticality Noted Date Comments Ciprofloxacin Rash Medium 02/22/2022 Rash but was on Flagyl at the same time. Nitrofurantoin Stomach upset Low 08/03/2016 Sulfa (Sulfonamide Antibiotics) Rash Medium 07/09/2019 rash Medications calcium carbonate-vitamin D3 1500 mg (600 mg elemental) -200 units per tablet Take 1 tablet by mouth daily Active omeprazole (PriLOSEC) 10 mg capsule Take 1 capsule (10 mg total) by mouth daily Pt takes Q other day. Active rosuvastatin (CRESTOR) 10 mg tablet TAKE 1 TABLET(10 MG) BY MOUTH DAILY 90 tablet 1 024 Active escitalopram (LEXAPRO) 10 mg tablet Take 1 tablet (10 mg total) by mouth daily 90 tablet 1 025 Active Additional Information Patient not taking.Reported on 11/16/2024 busPIRone (BUSPAR) 10 mg tablet TAKE 1 TABLET(10 MG) BY MOUTH THREE TIMES DAILY 90 tablet 1 025 Active meloxicam (MOBIC) 15 mg tabletIndications :Pain of left hip Take 1 tablet (15 mg total) by mouth daily 90 tablet 1 025 2025 Active ondansetron ODT (ZOFRAN-ODT) 4 mg disintegrating tabletIndications :Nausea Take 1 tablet (4 mg total) by mouth every 8 (eight) hours as needed for nausea or vomiting 20 tablet 025 Active semaglutide (WEGOVY) 2.4 mg/0.75 mL auto-injectorIndi cations:BMI 27.0-27.9,adult Inject 2.4 mg under the skin every 7 days 3 mL 1 025 Active meloxicam (MOBIC) 7.5 mg tabletIndications :Hip pain, unspecified laterality Take 1 tablet (7.5 mg total) by mouth daily 90 tablet 1 024 2024 Discontinued semaglutide (WEGOVY) 2.4 mg/0.75 mL auto-injectorIndi cations:BMI 27.0-27.9,adult Inject 2.4 mg under the skin every 7 days 9 mL 1 025 2024 Discontinued(R eorder) amoxicillin (AMOXIL) 875 mg tablet Take 1 tablet (875 mg total) by mouth 2 (two) times a day for 10 days 20 tablet 025 2024 Discontinued doxycycline (VIBRAMYCIN) 100 mg capsuleIndication s:Acute non-recurrent sinusitis, unspecified location Take 1 tablet/capsule (100 mg total) by mouth 2 (two) times a day for 10 days 20 tablet/caps ule 025 2024 Active Problems Problem Noted Date Diagnosed Date OA (osteoarthritis) 11/29/2024 Osteopenia of multiple sites 11/29/2024 BMI 26.0-26.9,adult 06/24/2024 Assessment & Plan (11/16/2024 1:46 PM CDT): Weight/BMI is in healthy range. Continue healthy lifestyle to maintain. Assessment & Plan (08/06/2024 11:45 AM SPECIALIST ICU): Patient is getting to a nice weight with the help with the Wegovy 2.4. Continue with healthy eating exercise and continue to monitor. Assessment & Plan (07/19/2024 2:24 PM SPECIALIST ICU): Doing well with weight loss efforts with the Wegovy. Assessment & Plan (06/24/2024 12:38 PM SPECIALIST ICU): Weight/BMI is in healthy range. Continue healthy [...] 06/24/2024 Assessment & Plan (06/24/2024 12:37 PM SPECIALIST ICU): Check DEXA Breast cancer screening by mammogram 06/24/2024 Assessment & Plan (06/24/2024 12:37 PM SPECIALIST ICU): Mammogram order provided Prediabetes 01/09/2024 Assessment & Plan (06/24/2024 12:36 PM SPECIALIST ICU): Pre-diabetes/hyperglycemia is a precursor to Dm. Stressed [...] both Assessment & Plan (06/30/2023 3:08 PM SPECIALIST ICU): Patient has persistent hip pain. Mobvicki is [...] medication Assessment & Plan (06/30/2023 3:07 PM SPECIALIST ICU): Bp is stable/in acceptable range for any co-morbidities. Encouraged to limit sodium intake and exercise for weight control. Lisinopril 5 Assessment & Plan (06/03/2023 1:01 PM SPECIALIST ICU): Bp is stable/in acceptable range for any [...] [facility] for any other problems or [...] 11/30/2022 Assessment & Plan (08/06/2024 11:45 AM SPECIALIST ICU): Patient has significant fatigue. It appears as [...] results Assessment & Plan (07/19/2024 2:24 PM SPECIALIST ICU): Patient has been doing great with her [...] 07/13/2019 Assessment & Plan (07/13/2019 9:03 AM SPECIALIST ICU): History of diverticulitis -- Watch diet and increase fluids. Call if has sxs to avoid possible complications Anxiety 05/07/2017 Overview (09/02/2020): Mostly with driving Assessment & Plan (08/06/2024 11:44 AM SPECIALIST ICU): Mood is stable and probably a little improved with her calories. Continue Lexapro and BuSpar Assessment & Plan (06/24/2024 12:36 PM SPECIALIST ICU): Stable with Lexapro 10 and BuSpar 10 [...] bruxism Assessment & Plan (06/30/2023 3:08 PM SPECIALIST ICU): Stable with Lexapro 10. Still having some [...] grinding. Assessment & Plan (07/13/2019 9:06 AM SPECIALIST ICU): Pt is managing sxs with behavior modification. Plans to continue to monitor Mixed hyperlipidemia 05/07/2017 Assessment & Plan (06/24/2024 12:36 PM SPECIALIST ICU): Encouraged patient to follow low fat/low chol [...] 10 Assessment & Plan (06/30/2023 3:07 PM SPECIALIST ICU): Encouraged patient to follow low fat/low chol [...] labs Assessment & Plan (07/13/2019 9:05 AM SPECIALIST ICU): This is a significant, separately identifiable problem [...] 10/12/2023 Assessment & Plan (06/30/2023 3:08 PM SPECIALIST ICU): Patient is being treated. Will continue to [...] provided. Assessment & Plan (06/30/2023 3:07 PM SPECIALIST ICU): Discussed the patient's BMI. The BMI is above average. BMI management plan is completed. BMI Follow-up includes: nutrition counseling, exercise counseling and education provided. BMI 33.0-33.9,adult 06/03/2023 06/30/19 Assessment & Plan (06/03/2023 1:01 PM SPECIALIST ICU): Discussed the patient's BMI. The BMI is above average. BMI management plan is completed. BMI Follow-up includes: nutrition counseling, exercise counseling and education provided. Left hip pain 06/03/2023 06/30/2023 Assessment & Plan (06/03/2023 1:02 PM SPECIALIST ICU): Patient notes left hip pain that is radiating to the groin. Has not had an x-ray done. Does respond nicely to NSAIDs so she can continue with those. Follow-up pending the x-rays Need for Tdap vaccination 06/03/2023 Assessment & Plan (06/03/2023 1:02 PM SPECIALIST ICU): Tdap updated in the office today Obesity [...] provided. Assessment & Plan (06/30/2023 3:06 PM SPECIALIST ICU): Insert obesity Assessment & Plan (06/03/2023 11:26 AM SPECIALIST ICU): Discussed the patients BMI: The BMI is [...] pain 03/11/2022 03/11/2022 LLQ abdominal pain 03/11/2022 4 Assessment & Plan (03/11/2022 10:50 AM CDT): [...] 07/10/20212021 Assessment & Plan (07/10/2021 7:59 AM SPECIALIST ICU): Obesity is unchanged. Discussed the patient's BMI. The BMI is above average. BMI management plan is completed. BMI Follow-up includes: nutrition counseling, exercise counseling and education provided. BMI 31.0-31.9,adult 07/10/2021 02/23/20 Assessment & Plan (07/10/2021 7:59 AM SPECIALIST ICU): Obesity is unchanged. Discussed the patient's BMI. The BMI is above average. BMI management plan is completed. BMI Follow-up includes: nutrition counseling, exercise counseling and education provided. Plantar fasciitis of left foot 07/10/2021 10/12/2023 Assessment & Plan (07/10/2021 9:04 AM SPECIALIST ICU): Symptoms appear to be most consistent with [...] 10/12/2023 Assessment & Plan (07/10/2021 9:06 AM SPECIALIST ICU): Patient has noted visual changes over the last 6-8 weeks. She was evaluated in [place] and told had a leak behind the eye she has noticed continued floaters and flashes her so he can as well as decrease in acuity. Stressed importance of following up with Ophthalmology. Provided options and she prefers to be seen in [place]. Provided the name of Dr. abbott her [...] if sxs worsen. Encounter for well woman exa m with routine gynecological exam 03/14/2021 10/12/2023 [...] provided. Assessment & Plan (05/25/2020 3:23 PM SPECIALIST ICU): Obesity is unchanged. Discussed the patient's BMI. The BMI is above average. BMI management plan is completed. BMI Follow-up includes: nutrition counseling, exercise counseling and education provided. BMI 30.0-30.9,adult 07/13/2019 05/25/20 20 Assessment & Plan (07/13/2019 9:06 AM SPECIALIST ICU): Obesity is unchanged. Discussed the patient's BMI. [...] visit. Assessment & Plan (07/13/2019 9:05 AM SPECIALIST ICU): Encouraged healthy lifestyle, good nutrition and exercise. Encouraged Calcium and Vitamin D and weight bearing exercise for bone health. Reviewed immunizations Reviewed age appropirate screenings. Breast cancer screening by mammogram 07/13/2019 10/12/2023 Assessment & Plan (04/16/2023 8:43 PM CDT): Mammogram order provided Assessment & Plan (04/14/2022 8:22 PM CDT): Mammogram order provided Assessment & Plan (07/13/2019 9:06 AM SPECIALIST ICU): Mammogram order provided Influenza vaccine refused 07/13/2019 Assessment & Plan (07/13/2019 9:06 AM SPECIALIST ICU): Encouraged vaccine. Reviewed risks/ benefits. Patient refuses and accepts risks. Chronic kidney disease (CKD) , stage III (moderate) 07/13/2019 07/17/2020 Assessment & Plan (07/13/2019 9:08 AM SPECIALIST ICU): This is a significant, separately identifiable problem that was evaluated and managed on the same day as the wellness exam This is the first time her GFR has dropped below 60. Avoid nephrotoxic drugs including NSAIDs. Monitor labs. Diverticulitis 06/24/2018 10/12/2023 Overview (09/02/2020): 06/2018 [facility] Assessment & Plan (04/14/2022 8:23 PM CDT): [...] plan. Assessment & Plan (05/25/2020 11:15 PM SPECIALIST ICU): Complete flagyl and cipro. BRAT diet and [...] maintain. Assessment & Plan (05/25/2020 11:16 PM SPECIALIST ICU): Obesity is unchanged. Discussed the patient's BMI. [...] on file Legal Sex Female 12:11 AM SPECIALIST ICU Gender Identity Female 05/23/2020 1:48 PM SPECIALIST ICU Sexual Orientation Straight 05/23/2020 1: 48 PM SPECIALIST ICU Occupation Industry Job Start Date Job End Date Retired Not on file Not on file Not on file Last Filed Vital Signs Vital Sign Reading Time Taken Comments Blood Pressure 124/80 11/16/2024 1:43 PM CDT Pulse 81 11/16/2024 1:43 PM CDT Temperature 36.5 C (97.7 F) 11/16/2024 1:43 PM CDT Respiratory Rate 18 05/05/2024 5:55 PM SPECIALIST ICU Oxygen Saturation 98% 11/16/2024 1:43 PM CDT Inhaled Oxygen Concentration - - Weight 76.5 kg (168 lb 11.8 oz) 11/16/2024 1:43 PM CDT Height 170.2 cm (5' 7) 08/06/2024 11:0 4 AM SPECIALIST ICU Body Mass Index 26.43 08/06/2024 11:04 AM SPECIALIST ICU Plan of Treatment Not on file Procedures Procedure Name Priority Date/Time Associated Diagnosis Comments SCREENING MAMMOGRAM BILATERAL W VENANCIO Schedule Routine, Read Routine (OP Routine) 11/18/2024 Breast cancer screening by mammogram POCT RAPID STREP Routine 11/16/2024 1:57 PM CDT Sore throat DEXA AXIAL SKELETON BONE DENSITY 1 OR MORE SITES Schedule Routine, Read Routine (OP Routine) 09/22/2024 1:42 PM CDT Menopause HM COLONOSCOPY Routine 08/27/2024 7:15 AM CDT THINPREP HOSPITALITY DIRECTOR PAP (IMAGE GUIDED) LIQUID-BASED PREP Routine 05/07/2017 2:00 PM SPECIALIST ICU from Last 3 Months or Most Recently Relevant to Health Maintenance Results * Screening Mammogram Bilateral W Venancio (11/18/2024) Anatomical Region Laterality Modality Breast Bilateral Mammography 11/18/2024 Impressions 11/18/2024 11:30 AM CDT No mammographic evidence of malignancy Recommend routine screening mammography in one year us Joanna GAYLE IMG MAMMO PROCEDURES Final Result * POCT rapid strep A (11/16/2024 1:57 PM CDT) Pathologist [facility] Rapid Strep A, POC Negative Negative Swab 11/16/2024 1:57 PM CDT us Joanna GAYLE POINT OF CARE TEST ORDERAB LES Final Result * Dexa Axial Skeleton Bone Density 1 or 2 Site (09/22/2024 1:42 PM CDT) Pathologist [facility] SCRIBED DXA T-SCORE -0.8 SCRIBED DXA Z-SCORE [...] * HM COLONOSCOPY (08/27/2024 7:15 AM CDT) Scribed Colonoscopy Normal Historical Provider HEALTH MAINTENANCE Final Result * ThinPrep Gynecologic Pap Test (Image-guided), Liquid-based Preparation (05/07/2017 2:00 PM SPECIALIST ICU) [facility] HISTORICAL RESULTS [...] has been evaluated with computer assisted technology. OPTICIAN APPRENTICE: [facility] HISTORICAL RESULTS Comment: MLK, CT(ASCP) CT screening location: [place] [address] [place] [address] 05/07/2017 2:00 PM SPECIALIST ICU 05/16/2017 7:55 PM SPECIALIST ICU Narrative [facility] HISTORICAL RESULTS - 05/16/2017 7:42 PM SPECIALIST ICU FASTING: UNKNOWN PERFORMING LAB: [facility] [place] [address] [facility] [phone] Monty Pugh MD Historical Provider LAB PATHOLOGY ORDERABLES Final Result [facility] HISTORICAL RESULTS from Last 3 Months or Most Recently Relevant to Health Maintenance Insurance [facility] [id number] [facility] [place] [address] Care Teams Marine Steward Relationship Specialty Start Date End Date Joanna Pacheco PA [address] [facility] [address] [place] [address] PCP - General Internal Medicine 03/26/19
--- OUTSIDE RECORDS SUMMARY | 2024-12-03 13:19 | XMS_ITS | Encounter Summary ---
Author Organization [facility] Care Team Providers Care Settlement Worker Name Role Phone Joanna Pacheco Primary Care Provider +1- [phone] Encounter Details Date Type Department Care Team (Latest Contact Info) Description 04/01/2017 Orders Only [facility] CLINCONV ProviderKirstofer MD [address] [place] [address] Social History Tobacco Use Types Packs/Day Years Used Date Smoking Tobacco: Never Assessed Comments Unknown Sex and Gender Information Value Date Recorded Sex Assigned at Not on file Legal Sex Female 12:11 AM PARTS CONSULTANT Gender Identity Female 05/23/2020 1:48 PM PARTS CONSULTANT Sexual Orientation Straight 05/23/2020 1: 48 PM PARTS CONSULTANT documented as of this encounter Plan of [...] COVID: Suspected 05/05/2024 05/05/2024 05/05/2024 6:39 PM PARTS CONSULTANT COVID: Suspected 11/16/2024 11/16/2024 11/16/2024 1:58 PM CDT documented as of this encounter Care Teams Settlement Worker Relationship Specialty Start Date End Date Joanna Pacheco PA [address] [facility] [address] [place] [address] PCP - General Internal Medicine 03/26/19 documented as of this encounter
--- OUTSIDE RECORDS SUMMARY | 2024-12-03 13:19 | XMS_ITS | Clinical Summary ---
Author Organization [facility] [facility] Address [address] [place] [address] Care Team Providers Care Senior Stock Plan Administrator Name Role Phone Joanna Pacheco Primary Care Provider [phone]- [phone] Allergies Active Allergy Reactions Criticality Noted Date [...] maintain. Assessment & Plan (08/06/2024 11:45 AM SOCK DRIER): Patient is getting to a nice weight with the help with the Wegovy 2.4. Continue with healthy eating exercise and continue to monitor. Assessment & Plan (07/19/2024 2:24 PM SOCK DRIER): Doing well with weight loss efforts with the Wegovy. Assessment & Plan (06/24/2024 12:38 PM SOCK DRIER): Weight/BMI is in healthy range. Continue healthy [...] 06/24/2024 Assessment & Plan (06/24/2024 12:37 PM SOCK DRIER): Check DEXA Breast cancer screening by mammogram 06/24/2024 Assessment & Plan (06/24/2024 12:37 PM SOCK DRIER): Mammogram order provided Prediabetes 01/09/2024 Assessment & Plan (06/24/2024 12:36 PM SOCK DRIER): Pre-diabetes/hyperglycemia is a precursor to Dm. Stressed [...] both Assessment & Plan (06/30/2023 3:08 PM SOCK DRIER): Patient has persistent hip pain. Mobvicki is [...] medication Assessment & Plan (06/30/2023 3:07 PM SOCK DRIER): Bp is stable/in acceptable range for any co-morbidities. Encouraged to limit sodium intake and exercise for weight control. Lisinopril 5 Assessment & Plan (06/03/2023 1:01 PM SOCK DRIER): Bp is stable/in acceptable range for any [...] [facility] sooner for any other problems or [...] 11/30/2022 Assessment & Plan (08/06/2024 11:45 AM SOCK DRIER): Patient has significant fatigue. It appears as [...] results Assessment & Plan (07/19/2024 2:24 PM SOCK DRIER): Patient has been doing great with her [...] 07/13/2019 Assessment & Plan (07/13/2019 9:03 AM SOCK DRIER): History of diverticulitis -- Watch diet and increase fluids. Call if has sxs to avoid possible complications Anxiety 05/07/2017 Overview (09/02/2020): Mostly with driving Assessment & Plan (08/06/2024 11:44 AM SOCK DRIER): Mood is stable and probably a little improved with her calories. Continue Lexapro and BuSpar Assessment & Plan (06/24/2024 12:36 PM SOCK DRIER): Stable with Lexapro 10 and BuSpar 10 [...] bruxism Assessment & Plan (06/30/2023 3:08 PM SOCK DRIER): Stable with Lexapro 10. Still having some [...] grinding. Assessment & Plan (07/13/2019 9:06 AM SOCK DRIER): Pt is managing sxs with behavior modification. Plans to continue to monitor Mixed hyperlipidemia 05/07/2017 Assessment & Plan (06/24/2024 12:36 PM SOCK DRIER): Encouraged patient to follow low fat/low chol [...] 10 Assessment & Plan (06/30/2023 3:07 PM SOCK DRIER): Encouraged patient to follow low fat/low chol [...] labs Assessment & Plan (07/13/2019 9:05 AM SOCK DRIER): This is a significant, separately identifiable problem [...] 10/12/2023 Assessment & Plan (06/30/2023 3:08 PM SOCK DRIER): Patient is being treated. Will continue to [...] provided. Assessment & Plan (06/30/2023 3:07 PM SOCK DRIER): Discussed the patient's BMI. The BMI is above average. BMI management plan is completed. BMI Follow-up includes: nutrition counseling, exercise counseling and education provided. BMI 33.0-33.9,adult 06/03/2023 06/30/19 Assessment & Plan (06/03/2023 1:01 PM SOCK DRIER): Discussed the patient's BMI. The BMI is above average. BMI management plan is completed. BMI Follow-up includes: nutrition counseling, exercise counseling and education provided. Left hip pain 06/03/2023 06/30/2023 Assessment & Plan (06/03/2023 1:02 PM SOCK DRIER): Patient notes left hip pain that is radiating to the groin. Has not had an x-ray done. Does respond nicely to NSAIDs so she can continue with those. Follow-up pending the x-rays Need for Tdap vaccination 06/03/2023 Assessment & Plan (06/03/2023 1:02 PM SOCK DRIER): Tdap updated in the office today Obesity [...] provided. Assessment & Plan (06/30/2023 3:06 PM SOCK DRIER): Insert obesity Assessment & Plan (06/03/2023 11:26 AM SOCK DRIER): Discussed the patients BMI: The BMI is [...] and education provided. Obesity (BMI 30.0-34.9) 04/14/2022 06/06/2022 Assessment & Plan (04/14/2022 8:23 PM CDT): [...] 07/10/20212021 Assessment & Plan (07/10/2021 7:59 AM SOCK DRIER): Obesity is unchanged. Discussed the patient's BMI. The BMI is above average. BMI management plan is completed. BMI Follow-up includes: nutrition counseling, exercise counseling and education provided. BMI 31.0-31.9,adult 07/10/2021 02/23/20 Assessment & Plan (07/10/2021 7:59 AM SOCK DRIER): Obesity is unchanged. Discussed the patient's BMI. The BMI is above average. BMI management plan is completed. BMI Follow-up includes: nutrition counseling, exercise counseling and education provided. Plantar fasciitis of left foot 07/10/2021 10/12/2023 Assessment & Plan (07/10/2021 9:04 AM SOCK DRIER): Symptoms appear to be most consistent with [...] 10/12/2023 Assessment & Plan (07/10/2021 9:06 AM SOCK DRIER): Patient has noted visual changes over the last 6-8 weeks. She was evaluated in [place] and told had a leak behind the eye she has noticed continued floaters and flashes her so he can as well as decrease in acuity. Stressed importance of following up with Ophthalmology. Provided options and she prefers to be seen in [place]. Provided the name of Dr. abbott her [...] provided. Assessment & Plan (05/25/2020 3:23 PM SOCK DRIER): Obesity is unchanged. Discussed the patient's BMI. The BMI is above average. BMI management plan is completed. BMI Follow-up includes: nutrition counseling, exercise counseling and education provided. BMI 30.0-30.9,adult 07/13/2019 05/25/20 20 Assessment & Plan (07/13/2019 9:06 AM SOCK DRIER): Obesity is unchanged. Discussed the patient's BMI. [...] visit. Assessment & Plan (07/13/2019 9:05 AM SOCK DRIER): Encouraged healthy lifestyle, good nutrition and exercise. Encouraged Calcium and Vitamin D and weight bearing exercise for bone health. Reviewed immunizations Reviewed age appropirate screenings. Breast cancer screening by mammogram 07/13/2019 10/12/2023 Assessment & Plan (04/16/2023 8:43 PM CDT): Mammogram order provided Assessment & Plan (04/14/2022 8:22 PM CDT): Mammogram order provided Assessment & Plan (07/13/2019 9:06 AM SOCK DRIER): Mammogram order provided Influenza vaccine refused 07/13/2019 Assessment & Plan (07/13/2019 9:06 AM SOCK DRIER): Encouraged vaccine. Reviewed risks/ benefits. Patient refuses and accepts risks. Chronic kidney disease (CKD) , stage III (moderate) 07/13/2019 07/17/2020 Assessment & Plan (07/13/2019 9:08 AM SOCK DRIER): This is a significant, separately identifiable problem that was evaluated and managed on the same day as the wellness exam This is the first time her GFR has dropped below 60. Avoid nephrotoxic drugs including NSAIDs. Monitor labs. Diverticulitis 06/24/2018 10/12/2023 Overview (09/02/2020): 06/2018 [facility] Assessment & Plan (04/14/2022 8:23 [...] plan. Assessment & Plan (05/25/2020 11:15 PM SOCK DRIER): Complete flagyl and cipro. BRAT diet and [...] maintain. Assessment & Plan (05/25/2020 11:16 PM SOCK DRIER): Obesity is unchanged. Discussed the patient's BMI. The BMI is above average. BMI management plan is completed. BMI Follow-up includes: nutrition counseling, exercise counseling and education provided. Other obesity due to excess calories 03/20/2017 04/14/2022 Encounters Date Type Department Care Team Description 11/30/[address] [place] [phone] Joanna Pacheco PA 11/20/[address] [place] [address] Joanna Pacheco PA 11/18/[address] [place] [phone] Joanna Pacheco PA 11/17/[address] [place] [phone] Joanna Pacheco PA 11/16/2024 1:30 PM CDT Office Visit [address] [place] [phone] Joanna Pacheco PA Otitis, unspecified laterality (Primary Dx); Nasal congestion; Sore throat; Primary osteoarthritis, unspecified site; Osteopenia of multiple sites; Anxiety; BMI 26.0-26.9,adult 10/30/2024 Telephone [facility] Internal Medicine at [address] [place] [phone] Joanna Pacheco PA 10/19/[address] [place] [phone] Joanna Pacheco PA Additional Services Or Orders 10/06/2024 Results Follow-Up [address] [place] [phone] Joanna Pacheco PA Dexa Axial Skeleton Bone Density 1 or 2 Site, Screening Mammogram Bilateral W Venancio 10/02/[address] [place] [phone] Joanna Pacheco PA from Last 3 [...] hx of , none med s since detention 3 yrs ago Family History Medical History [...] on file Legal Sex Female 12:11 AM SOCK DRIER Gender Identity Female 05/23/2020 1:48 PM SOCK DRIER Sexual Orientation Straight 05/23/2020 1: 48 PM SOCK DRIER Occupation Industry Job Start Date Job End Date Retired Not on file Not on file Not on file Obstetrics History Last Filed Vital Signs Vital Sign Reading Time Taken Comments Blood Pressure 124/80 11/16/2024 1:43 PM CDT Pulse 81 11/16/2024 1:43 PM CDT Temperature 36.5 C (97.7 F) 11/16/2024 1:43 PM CDT Respiratory Rate 18 05/05/2024 5:55 PM SOCK DRIER Oxygen Saturation 98% 11/16/2024 1:43 PM CDT Inhaled Oxygen Concentration - - Weight 76.5 kg (168 lb 11.8 oz) 11/16/2024 1:43 PM CDT Height 170.2 cm (5' 7) 08/06/2024 11:0 4 AM SOCK DRIER Body Mass Index 26.43 08/06/2024 11:04 AM SOCK DRIER Plan of Treatment Health Maintenance Due Date Last Done Comments Hepatitis C Screening 1960 Hepatitis B Screening 1976 Zoster Vaccine (1 of 2) 2008 Covid-19 Vaccine (2023-2 5 season) 2024 01/07/2022, 05/23/2021, 09/10/2020, Additional history exists Well Visit 65+ 10/07/2024 10/08/2023, 070 10/2022, 11/15/2022, Additional history exists Fall Risk Assessment 07/06/2025 07/06/2024, 06/24/2024, 10/08/2023, Additional history exists Depression Screening 11/16/2025 11/16/2024, 08/06/2024, 07/06/2024, Additional history exists Breast Cancer Screening-Mammogram 11/18/2025 11/18/2024, 04/30/2024, 09/17/2023, Additional history exists Osteoporosis Screening-Bone Density Scan [...] COLONOSCOPY Routine 08/27/2024 7:15 AM CDT THINPREP CADDY MASTER PAP (IMAGE GUIDED) LIQUID-BASED PREP Routine 05/07/2017 2:00 PM SOCK DRIER from Last 3 Months or Most Recently Relevant to Health Maintenance Results * Screening Mammogram Bilateral W Venancio (11/18/2024) Anatomical Region Laterality Modality Breast Bilateral Mammography 11/18/2024 Impressions 11/18/2024 11:30 AM CDT No mammographic evidence of malignancy Recommend routine screening mammography in one year us Joanna GAYLE IMG MAMMO PROCEDURES Final Result * POCT rapid strep A (11/16/2024 1:57 PM CDT) Pathologist [facility] Rapid Strep A, POC Negative Negative Swab 11/16/2024 1:57 PM CDT us Joanna GAYLE POINT OF CARE TEST ORDERAB LES Final Result * Dexa Axial Skeleton Bone Density 1 or 2 Site (09/22/2024 1:42 PM CDT) Pathologist [facility] SCRIBED DXA T-SCORE -0.8 SCRIBED DXA [...] Test (Image-guided), Liquid-based Preparation (05/07/2017 2:00 PM SOCK DRIER) CLINICAL INFORMATION [facility] HISTORICAL RESULTS [...] has been evaluated with computer assisted technology. WOOL HANDLER: [facility] HISTORICAL RESULTS Comment: MLK, CT(ASCP) CT screening location: [place] [address] [place] [address] 05/07/2017 2:00 PM SOCK DRIER 05/16/2017 7:55 PM SOCK DRIER Narrative [facility] HISTORICAL RESULTS - 05/16/2017 7:42 PM SOCK DRIER FASTING: UNKNOWN PERFORMING LAB: [facility] [place] [address] [facility] [id number] Monty Pugh MD Historical Provider LAB PATHOLOGY ORDERABLES Final Result [facility] HISTORICAL RESULTS from Last 3 Months or Most Recently Relevant to Health Maintenance Insurance [facility] [id number] [place] [address] [facility] MEDICARE Care Teams Senior Stock Plan Administrator Relationship Specialty Start Date End Date Joanna Pacheco PA [address] [facility] [address] [facility] [address] [place] [address] PCP - General Internal Medicine 03/26/19
[2024-12-03 14:00] LABS: Basophils Percent Auto 0.4 % (0.2-1.2); Eosinophils Absolute Auto 0.2 K/mm3 (0-0.3); Hematocrit 43.1 % (37.0-47.0); Hemoglobin 14.1 g/dL (12.0-15.0); Immature Granulocyte Absolute 0.03 K/mm3 (0.00-0.031); Immature Granulocyte Percent A 0.3 % (0-0.5); Lymphocytes Absolute Auto 2.39 K/mm3 (0.9-3.2); Mean Corpuscular HGB Conc 32.7 g/dl (32-36); Mean Corpuscular Hemoglobin 30.3 pg (26-34); Mean Corpuscular Volume 92.7 fl (80-100); Mean Platelet Volume 10.2 fl (7.4-10.4); Monocytes Absolute Auto 0.7 K/mm3 (0.1-0.6); Monocytes Percent Auto 6.9 % (2.6-8.5); Neutrophils Absolute Auto 6.6 K/mm3 (1.3-6.7); Neutrophils Percent Auto 66.4 % (45.5-73.1); Platelet Count Result 282 k/mm3 (150-375); Red Blood Count 4.65 M/mm3 (4.2-5.4); Red Cell Distribution Width 12.8 % (11.5-14.5)
[2024-12-03 14:02] LABS: Add Urine Microscopic? NO; Appearance Urine Clear (Clear); Bilirubin Urine Negative (Negative); Blood Urine Negative (Negative); Color Urine Yellow (Yellow); Glucose Urine UA Negative (Negative); Ketones Urine Trace mg/dL (Negative); Leukocyte Esterase Ur Negative LEU/UL (Negative); Nitrate Urine Negative (Negative); Protein Urine Negative (Negative); Specific Grav Ur 1.021 (1.001-1.035); Urobilinogen Urine 0.2 mg/dL (<2.0); pH Urine 5.5 (5.0-9.0)
--- NOTE | 2024-12-03 14:05 | ED_ITS ---
HPI - Abdominal Pain General Chief Complaint: Abdominal Pain Stated Complaint: diverticulitis Time Seen by Provider: 12/03/24 13:30 Source: patient Mode of arrival: ambulatory Limitations: no limitations History of Present Illness HPI narrative: Patient is a 64-year-old female who presents the ED with report of left lower abdominal pain. Patient reports having pain since Saturday. States it feels similar to her previous episodes of diverticulitis. States she was on recent antibiotics for an ear infection and developed constipation afterwards. Has been taking stool softeners and has since had a bowel movement today. Reports mild nausea. Denies vomiting. Denies fevers, urinary complaints. Related Data Home Medications ?Medication ?Instructions ?Recorded ?Confirmed ?Last Taken ?Type rosuvastatin 10 mg tablet 10 mg PO DAILY 05/21/20 03/16/22 03/15/22 08:00 History amoxicillin 875 mg-potassium 1 tablet PO BID 03/16/22 03/16/22 03/06/22 17:00 History clavulanate 125 mg tablet metronidazole 500 mg tablet 500 mg PO TID 03/16/22 03/16/22 03/06/22 17:00 History Allergies Allergy/AdvReac Type Severity Reaction Status Date / Time Sulfa (Sulfonamide Allergy Unknown RASH Verified 12/03/24 13:20 Antibiotics) ciprofloxacin (From Cipro) Allergy Unknown Verified 12/03/24 13:20 Review of Systems 2 Review of Systems: All systems reviewed & are unremarkable except as noted in HPI. All systems reviewed & are unremarkable except as noted in HPI and below PMFSH Past Medical History Medical History Colon cancer screening Elevated liver enzymes Postmenopausal Hypertension Family History Family History Sibling Family history of osteoarthritis Family history of malignant neoplasm of breast in first degree relative Patient's sister is Mother Family history of diabetes mellitus in first degree relative Patient's mother is Social History Social History Smoking status: Never smoker Alcohol intake: unknown Substance use: never Spiritual care concerns: No Exam 2 Narrative: GENERAL: Well appearing, well-nourished, non-toxic, in no acute distress. HEAD: Normocephalic, atraumatic. RESPIRATORY: Airway patent, respirations nonlabored. Clear to auscultation bilaterally, no rales, rhonchi, wheezing. CARDIOVASCULAR: Regular rate and rhythm without murmurs, rubs, or gallops. ABDOMINAL: Soft, moderate focal tenderness in LLQ, no rebound, nondistended. Normoactive BS. MUSCULOSKELETAL: Moves all extremities. No gross deformities. SKIN: Warm, dry, normal color. NEURO: A&O X3. Speech clear. PSYCHIATRIC: Appropriate mood and affect. Normal interaction. Course Vital Signs Vital signs: Vital Signs Temperature 97.4 F L 12/03/24 13:10 Pulse Rate 90 12/03/24 13:10 Respiratory Rate 16 12/03/24 13:10 Blood Pressure 125/72 12/03/24 13:10 Pulse Oximetry 99 12/03/24 13:10 Oxygen Delivery Room Air 12/03/24 13:10 Temperature 97.4 F L 12/03/24 13:10 Pulse Rate 90 12/03/24 13:10 Respiratory Rate 16 12/03/24 13:10 Blood Pressure 125/72 12/03/24 13:10 Pulse Oximetry 99 12/03/24 13:10 Oxygen Delivery Room Air 12/03/24 13:10 MDM - Abdominal Pain MDM Narrative Medical decision making narrative: Patient presented to ED with several day hx of LLQ abdominal pain. History of diverticulitis that feels similar. Recent constipation. Vital signs are stable upon arrival. Patient is afebrile here. CBC with white blood cell count of 10.0. CMP unremarkable. UA without signs of infection. CT scan of abdomen/pelvis was obtained and consistent with sigmoid diverticulitis. Also showing findings of constipation. Discussed lab and imaging findings with patient. She has remained stable throughout ED stay. Feel she is safe for discharge home with oral antibiotics. Has allergy to Cipro. Has tolerated Augmentin in the past. Advised to continue Tylenol as needed for pain. Declined further pain medication. Discussed constipation management, diverticulitis diet. Recommended close follow-up with PCP for further evaluation. Given return precautions. She agrees with plan. Discharged in stable condition. Medical Records Attestation: I reviewed the patient's medical records. Lab Data Attestation: I reviewed the patient's lab results. 12/03/24 13:52 12/03/24 13:52 Labs: Lab Results 12/03/24 Range/Units 13:52 WBC 10.0 (4.5-10.0) K/mm3 RBC 4.65 (4.2-5.4) M/mm3 Hgb 14.1 (12.0-15.0) g/dL Hct 43.1 (37.0-47.0) % MCV 92.7 (80-100) fl MCH 30.3 (26-34) pg MCHC 32.7 (32-36) g/dl RDW 12.8 (11.5-14.5) % Plt Count 282 (150-375) k/mm3 MPV 10.2 (7.4-10.4) fl Immature Gran % (Auto) 0.3 (0-0.5) % Neut % (Auto) 66.4 (45.5-73.1) % Lymph % (Auto) 24.0 (18.3-44.2) % [place] % (Auto) 6.9 (2.6-8.5) % Eos % (Auto) 2.0 (0-4.4) % Baso % (Auto) 0.4 (0.2-1.2) % Lymph # (Auto) 2.39 (0.9-3.2) K/mm3 [place] # (Auto) 0.7 H (0.1-0.6) K/mm3 Eos # (Auto) 0.2 (0-0.3) K/mm3 Baso # (Auto) 0.0 (0.0-0.1) K/mm3 Abs Immat Gran (auto) 0.03 (0.00-0.031) K/mm3 Absolute Neuts (auto) 6.6 (1.3-6.7) K/mm3 Absolute Nucleated RBC 0.000 (0.0-0.012) K/mm3 Nucleated RBC % 0.0 (0.0-0.2) % Sodium 140 (137-145) mmol/L Potassium 3.8 (3.4-5.0) mmol/L Chloride 103 (98-107) mmol/L Carbon Dioxide 28 (22-30) mmol/L Anion Gap 9 (4-12) mmol/L BUN 17 (7-17) mg/dL Creatinine 0.90 (0.7-1.0) mg/dL Estim Creat Clear Calc 54 ml/min Estimated GFR > 60 (59 - ) Glucose 93 (65-110) mg/dL Calcium 9.8 (8.4-10.2) mg/dL Total Bilirubin 0.5 (0.2-1.3) mg/dL AST 26 (14-36) U/L ALT 18 (6-35) U/L Alkaline Phosphatase 31 L (38-126) U/L Total Protein 7.8 (6.3-8.2) g/dL Albumin 4.5 (3.5-5.1) g/dL Lipase 133 (23-300) U/L Urine Color Yellow (Yellow) Urine Appearance Clear (Clear) Urine pH 5.5 (5.0-9.0) Ur Specific [place] 1.021 (1.001-1.035) Urine Protein Negative (Negative) mg/dL Urine Glucose (UA) Negative (Negative) mg/dL Urine Ketones Trace H (Negative) mg/dL Ur Blood (Man) Negative (Negative) Urine Nitrate Negative (Negative) Urine Bilirubin Negative (Negative) Urine Urobilinogen 0.2 (<2.0) mg/dL Leukocyte Esterase Rfl Negative (Negative) ADAM/UL Imaging Data Attestation: I personally reviewed and interpreted this imaging study as follows: Radiologist's impression: ITS Impressions Abdomen/Pelvis CT 12/03/24 14:35 IMPRESSION: 1. No evidence of appendicitis or intestinal obstruction. Thickening of the sigmoid colon with surrounding fluid suggestive of diverticulitis. Other differential include colitis and infiltrative process. Follow-up advised. 2. Fat infiltration of the liver. 3. Right kidney stone. 4. Constipation. Discharge Plan Discharge Clinical Impression: Diverticulitis Constipation Qualifiers: Constipation type: unspecified constipation type Qualified Code(s): K59.00 - Constipation, unspecified Patient Disposition: Home Condition: Stable Instructions: Antibiotic Form, Diverticulitis (ED), Constipation (ED), Diverticulitis Diet (ED) Additional Instructions: Take antibiotics as prescribed. Stay well hydrated. Continue Tylenol as needed for pain. Recommend high-fiber diet, continuing stool softeners as needed for constipation. Follow-up closely with your primary care doctor for further evaluation. Return to ED if you experience worsening or severe pain, unable to keep down food/drink/antibiotics, fevers, rectal bleeding, dark black stools, or any other symptoms of concern. Patient Language: Spanish Prescriptions: New amoxicillin-pot clavulanate 875-125 mg tablet 1 tablet PO Q12H 7 Days Qty: 14 0RF No Action rosuvastatin 10 mg tablet 10 mg PO DAILY metronidazole 500 mg Tablet 500 mg PO TID Rx Instructions: Patient completed medication; patient received antibiotic for previous diverticulitis episode amoxicillin-pot clavulanate 875-125 mg tablet 1 tablet PO BID Rx Instructions: Patient completed medication; patient received antibiotic for previous diverticulitis episode amoxicillin-pot clavulanate [Augmentin] 500-125 mg tablet 1 tablet PO Q12H Qty: 10 0RF metronidazole [Flagyl] 375 mg capsule 375 mg PO Q12H Qty: 10 0RF Follow-up/Referrals: Tara,NALINI Marshall [Primary Care Provider] - Time of Disposition: 15:57
[2024-12-03 14:15] LABS: Alanine Aminotransferase 18 U/L (6-35); Albumin Level 4.5 g/dL (3.5-5.1); Alkaline Phosphatase 31 U/L (38-126); Anion Gap 9 mmol/L (4-12); Aspartate Amino Transferase 26 U/L (14-36); Bilirubin,Total 0.5 mg/dL (0.2-1.3); Blood Urea Nitrogen 17 mg/dL (7-17); Calcium 9.8 mg/dL (8.4-10.2); Carbon Dioxide 28 mmol/L (22-30); Chloride 103 mmol/L (98-107); Estimated CRCL calculation 54 ml/min; Estimated Glomerular Filt Rate > 60; Glucose 93 mg/dL (65-110); Lipase 133 U/L (23-300); Potassium 3.8 mmol/L (3.4-5.0); Sodium 140 mmol/L (137-145); Total Protein 7.8 g/dL (6.3-8.2)
--- OUTSIDE RECORDS SUMMARY | 2024-12-03 14:49 | XMS_ITS | Encounter Summary ---
Author Organization [facility] Care Team Providers Care Conveyor Installer Name Role Phone Joanna Pacheco Primary Care Provider [phone]- [phone] Encounter Details Date Type Department Care Team (Latest Contact Info) Description 05/31/2017 Orders Only [facility] ProviderKristofer MD [address] [place] [id number] Social History Tobacco Use Types Packs/Day Years Used Date Smoking Tobacco: Never Assessed Comments Unknown Sex and Gender Information Value Date Recorded Sex Assigned at Not on file Legal Sex Female 12:11 AM NEUROLOGIST Gender Identity Female 05/23/2020 1:48 PM NEUROLOGIST Sexual Orientation Straight 05/23/2020 1: 48 PM NEUROLOGIST documented as of this encounter Plan of Treatment Not on file documented as of this encounter Procedures Procedure Name Priority Date/Time Associated Diagnosis Comments PROCEDURE - RESULT 06/20/2017 12 :00 AM NEUROLOGIST documented in this encounter Results * PROCEDURE - RESULT (06/20/2017 12:00 AM NEUROLOGIST) Narrative 06/20/2017 12:00 AM NEUROLOGIST Ordered by an unspecified provider. Historical Provider Final Res ult documented in this encounter Visit Diagnoses Not on filedocumented in this encounter Additional Health Concerns Infection Onset Date Last Indicated Resolved Time COVID: Suspected 05/05/2024 05/05/2024 05/05/2024 6:39 PM NEUROLOGIST COVID: Suspected 11/16/2024 11/16/2024 11/16/2024 1:58 PM CDT documented as of this encounter Care Teams Conveyor Installer Relationship Specialty Start Date End Date Joanna Pacheco PA [address] [facility] [address] [place] [address] PCP - General Internal Medicine 03/26/19 documented as of this encounter
--- OUTSIDE RECORDS SUMMARY | 2024-12-03 14:49 | XMS_ITS | Clinical Summary ---
Author Organization [facility] Address [address] [place] [address] Care Team Providers Care Manager Printing Name Role Phone Mary Paredes MD Primary Care Provider + Source Comments [facility],non-owned Affiliates and Associated Physician Practices is amultiple site organization consisting of ambulatory clinics and hospital sitesin [place], [place], [place] and [place]. This disclosure is being madepursuant to the Care Everywhere program and may not contain all information available regarding this patient. Last updated 18.[facility] Allergies Active Allergy Reactions Criticality Noted Date [...] on file Legal Sex Female 6:27 AM ANALYSIS REPORTING DEVELOPER Gender Identity Not on file Sexual Orientation Not on file Last Filed Vital Signs Vital Sign Reading Time Taken Comments Blood Pressure 136/82 08/01/2016 11:53 AM ANALYSIS REPORTING DEVELOPER Pulse 67 08/01/2016 11:53 AM ANALYSIS REPORTING DEVELOPER Temperature 37 C (98.6 F) 08/01/2016 11:53 AM ANALYSIS REPORTING DEVELOPER Respiratory Rate 16 08/01/2016 11:53 AM ANALYSIS REPORTING DEVELOPER Oxygen Saturation 98% 08/01/2016 11:53 AM ANALYSIS REPORTING DEVELOPER Inhaled Oxygen Concentration - - Weight 81.6 kg (180 lb) 08/01/2016 11:53 AM ANALYSIS REPORTING DEVELOPER Height 172.7 cm (5' 8) 08/01/2016 11:53 AM ANALYSIS REPORTING DEVELOPER Body Mass Index 27.37 08/01/2016 11:53 AM ANALYSIS REPORTING DEVELOPER Plan of Treatment Health Maintenance Due Date [...] patient's age to complete this topic Insurance [employer] Care Teams Manager Printing Relationship Specialty Start Date End Date Mary Paredes MD [address] [facility] [address] [place] [address] PCP - General Family Medicine 08/01/16
--- OUTSIDE RECORDS SUMMARY | 2024-12-03 14:49 | XMS_ITS | Encounter Summary ---
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
--- OUTSIDE RECORDS SUMMARY | 2024-12-03 14:49 | XMS_ITS | Encounter Summary ---
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
--- OUTSIDE RECORDS SUMMARY | 2024-12-03 14:49 | XMS_ITS | Clinical Summary ---
Author Organization [facility] [address] [facility] Address [address] [place] [address] Care Team Providers Care Oil Well Logging Engineer Name Role Phone Joanna Pacheco Primary Care Provider +1- [phone] Allergies Active Allergy Reactions Criticality Noted Date [...] maintain. Assessment & Plan (08/06/2024 11:45 AM BUSINESS SUPPORT ASSOCIATE): Patient is getting to a nice weight with the help with the Wegovy 2.4. Continue with healthy eating exercise and continue to monitor. Assessment & Plan (07/19/2024 2:24 PM BUSINESS SUPPORT ASSOCIATE): Doing well with weight loss efforts with the Wegovy. Assessment & Plan (06/24/2024 12:38 PM BUSINESS SUPPORT ASSOCIATE): Weight/BMI is in healthy range. Continue healthy [...] 06/24/2024 Assessment & Plan (06/24/2024 12:37 PM BUSINESS SUPPORT ASSOCIATE): Check DEXA Breast cancer screening by mammogram 06/24/2024 Assessment & Plan (06/24/2024 12:37 PM BUSINESS SUPPORT ASSOCIATE): Mammogram order provided Prediabetes 01/09/2024 Assessment & Plan (06/24/2024 12:36 PM BUSINESS SUPPORT ASSOCIATE): Pre-diabetes/hyperglycemia is a precursor to Dm. Stressed [...] both Assessment & Plan (06/30/2023 3:08 PM BUSINESS SUPPORT ASSOCIATE): Patient has persistent hip pain. Mobvicki is [...] medication Assessment & Plan (06/30/2023 3:07 PM BUSINESS SUPPORT ASSOCIATE): Bp is stable/in acceptable range for any co-morbidities. Encouraged to limit sodium intake and exercise for weight control. Lisinopril 5 Assessment & Plan (06/03/2023 1:01 PM BUSINESS SUPPORT ASSOCIATE): Bp is stable/in acceptable range for any [...] [facility] for any other problems [...] 11/30/2022 Assessment & Plan (08/06/2024 11:45 AM BUSINESS SUPPORT ASSOCIATE): Patient has significant fatigue. It appears as [...] results Assessment & Plan (07/19/2024 2:24 PM BUSINESS SUPPORT ASSOCIATE): Patient has been doing great with her [...] 07/13/2019 Assessment & Plan (07/13/2019 9:03 AM BUSINESS SUPPORT ASSOCIATE): History of diverticulitis -- Watch diet and increase fluids. Call if has sxs to avoid possible complications Anxiety 05/07/2017 Overview (09/02/2020): Mostly with driving Assessment & Plan (08/06/2024 11:44 AM BUSINESS SUPPORT ASSOCIATE): Mood is stable and probably a little improved with her calories. Continue Lexapro and BuSpar Assessment & Plan (06/24/2024 12:36 PM BUSINESS SUPPORT ASSOCIATE): Stable with Lexapro 10 and BuSpar 10 [...] bruxism Assessment & Plan (06/30/2023 3:08 PM BUSINESS SUPPORT ASSOCIATE): Stable with Lexapro 10. Still having some [...] grinding. Assessment & Plan (07/13/2019 9:06 AM BUSINESS SUPPORT ASSOCIATE): Pt is managing sxs with behavior modification. Plans to continue to monitor Mixed hyperlipidemia 05/07/2017 Assessment & Plan (06/24/2024 12:36 PM BUSINESS SUPPORT ASSOCIATE): Encouraged patient to follow low fat/low chol [...] 10 Assessment & Plan (06/30/2023 3:07 PM BUSINESS SUPPORT ASSOCIATE): Encouraged patient to follow low fat/low chol [...] labs Assessment & Plan (07/13/2019 9:05 AM BUSINESS SUPPORT ASSOCIATE): This is a significant, separately identifiable problem [...] 10/12/2023 Assessment & Plan (06/30/2023 3:08 PM BUSINESS SUPPORT ASSOCIATE): Patient is being treated. Will continue to [...] provided. Assessment & Plan (06/30/2023 3:07 PM BUSINESS SUPPORT ASSOCIATE): Discussed the patient's BMI. The BMI is above average. BMI management plan is completed. BMI Follow-up includes: nutrition counseling, exercise counseling and education provided. BMI 33.0-33.9,adult 06/03/2023 06/30/19 Assessment & Plan (06/03/2023 1:01 PM BUSINESS SUPPORT ASSOCIATE): Discussed the patient's BMI. The BMI is above average. BMI management plan is completed. BMI Follow-up includes: nutrition counseling, exercise counseling and education provided. Left hip pain 06/03/2023 06/30/2023 Assessment & Plan (06/03/2023 1:02 PM BUSINESS SUPPORT ASSOCIATE): Patient notes left hip pain that is radiating to the groin. Has not had an x-ray done. Does respond nicely to NSAIDs so she can continue with those. Follow-up pending the x-rays Need for Tdap vaccination 06/03/2023 Assessment & Plan (06/03/2023 1:02 PM BUSINESS SUPPORT ASSOCIATE): Tdap updated in the office today Obesity [...] provided. Assessment & Plan (06/30/2023 3:06 PM BUSINESS SUPPORT ASSOCIATE): Insert obesity Assessment & Plan (06/03/2023 11:26 AM BUSINESS SUPPORT ASSOCIATE): Discussed the patients BMI: The BMI is [...] 07/10/20212021 Assessment & Plan (07/10/2021 7:59 AM BUSINESS SUPPORT ASSOCIATE): Obesity is unchanged. Discussed the patient's BMI. The BMI is above average. BMI management plan is completed. BMI Follow-up includes: nutrition counseling, exercise counseling and education provided. BMI 31.0-31.9,adult 07/10/2021 02/23/20 Assessment & Plan (07/10/2021 7:59 AM BUSINESS SUPPORT ASSOCIATE): Obesity is unchanged. Discussed the patient's BMI. The BMI is above average. BMI management plan is completed. BMI Follow-up includes: nutrition counseling, exercise counseling and education provided. Plantar fasciitis of left foot 07/10/2021 10/12/2023 Assessment & Plan (07/10/2021 9:04 AM BUSINESS SUPPORT ASSOCIATE): Symptoms appear to be most consistent with [...] 10/12/2023 Assessment & Plan (07/10/2021 9:06 AM BUSINESS SUPPORT ASSOCIATE): Patient has noted visual changes over the last 6-8 weeks. She was evaluated in [place] and told had a leak behind the eye she has noticed continued floaters and flashes her so he can as well as decrease in acuity. Stressed importance of following up with Ophthalmology. Provided options and she prefers to be seen in [place]. Provided the name of Dr. abbott her [...] provided. Assessment & Plan (05/25/2020 3:23 PM BUSINESS SUPPORT ASSOCIATE): Obesity is unchanged. Discussed the patient's BMI. The BMI is above average. BMI management plan is completed. BMI Follow-up includes: nutrition counseling, exercise counseling and education provided. BMI 30.0-30.9,adult 07/13/2019 05/25/20 20 Assessment & Plan (07/13/2019 9:06 AM BUSINESS SUPPORT ASSOCIATE): Obesity is unchanged. Discussed the patient's BMI. [...] visit. Assessment & Plan (07/13/2019 9:05 AM BUSINESS SUPPORT ASSOCIATE): Encouraged healthy lifestyle, good nutrition and exercise. Encouraged Calcium and Vitamin D and weight bearing exercise for bone health. Reviewed immunizations Reviewed age appropirate screenings. Breast cancer screening by mammogram 07/13/2019 10/12/2023 Assessment & Plan (04/16/2023 8:43 PM CDT): Mammogram order provided Assessment & Plan (04/14/2022 8:22 PM CDT): Mammogram order provided Assessment & Plan (07/13/2019 9:06 AM BUSINESS SUPPORT ASSOCIATE): Mammogram order provided Influenza vaccine refused 07/13/2019 Assessment & Plan (07/13/2019 9:06 AM BUSINESS SUPPORT ASSOCIATE): Encouraged vaccine. Reviewed risks/ benefits. Patient refuses and accepts risks. Chronic kidney disease (CKD) , stage III (moderate) 07/13/2019 07/17/2020 Assessment & Plan (07/13/2019 9:08 AM BUSINESS SUPPORT ASSOCIATE): This is a significant, separately identifiable problem that was evaluated and managed on the same day as the wellness exam This is the first time her GFR has dropped below 60. Avoid nephrotoxic drugs including NSAIDs. Monitor labs. Diverticulitis 06/24/2018 10/12/2023 Overview (09/02/2020): 06/2018 [facility] Assessment & Plan (04/14/2022 8:23 PM [...] plan. Assessment & Plan (05/25/2020 11:15 PM BUSINESS SUPPORT ASSOCIATE): Complete flagyl and cipro. BRAT diet and [...] maintain. Assessment & Plan (05/25/2020 11:16 PM BUSINESS SUPPORT ASSOCIATE): Obesity is unchanged. Discussed the patient's BMI. The BMI is above average. BMI management plan is completed. BMI Follow-up includes: nutrition counseling, exercise counseling and education provided. Other obesity due to excess calories 03/20/2017 04/14/2022 Encounters Date Type Department Care Team Description 11/30/[address] [place] [phone] Joanna Pacheco PA 11/20/[address] [place] [address] Joanna Pacheco PA 11/18/[address] [place] [phone] Joanna Pacheco PA 11/17/[address] [place] [phone] Joanna Pacheco PA 11/16/2024 1:30 PM CDT Office Visit [address] [place] [phone] Joanna Pacheco PA Otitis, unspecified laterality (Primary Dx); Nasal congestion; Sore throat; Primary osteoarthritis, unspecified site; Osteopenia of multiple sites; Anxiety; BMI 26.0-26.9,adult 10/30/2024 Telephone [facility] Internal Medicine at [address] [place] [phone] Joanna Pacheco PA 10/19/[address] [place] [phone] Joanna Pacheco PA Additional Services Or Orders 10/06/2024 Results Follow-Up [address] [place] [phone] Joanna Pacheco PA Dexa Axial Skeleton Bone Density 1 or 2 Site, Screening Mammogram Bilateral W Venancio 10/02/[address] [place] [phone] Joanna Pacheco PA from Last 3 [...] hx of , none med s since [facility]p 3 yrs ago Family History Medical History [...] on file Legal Sex Female 12:11 AM BUSINESS SUPPORT ASSOCIATE Gender Identity Female 05/23/2020 1:48 PM BUSINESS SUPPORT ASSOCIATE Sexual Orientation Straight 05/23/2020 1: 48 PM BUSINESS SUPPORT ASSOCIATE Occupation Industry Job Start Date Job End Date Retired Not on file Not on file Not on file Obstetrics History Last Filed Vital Signs Vital Sign Reading Time Taken Comments Blood Pressure 124/80 11/16/2024 1:43 PM CDT Pulse 81 11/16/2024 1:43 PM CDT Temperature 36.5 C (97.7 F) 11/16/2024 1:43 PM CDT Respiratory Rate 18 05/05/2024 5:55 PM BUSINESS SUPPORT ASSOCIATE Oxygen Saturation 98% 11/16/2024 1:43 PM CDT Inhaled Oxygen Concentration - - Weight 76.5 kg (168 lb 11.8 oz) 11/16/2024 1:43 PM CDT Height 170.2 cm (5' 7) 08/06/2024 11:0 4 AM BUSINESS SUPPORT ASSOCIATE Body Mass Index 26.43 08/06/2024 11:04 AM BUSINESS SUPPORT ASSOCIATE Plan of Treatment Health Maintenance Due Date [...] COLONOSCOPY Routine 08/27/2024 7:15 AM CDT THINPREP NANOSYSTEMS ENGINEER PAP (IMAGE GUIDED) LIQUID-BASED PREP Routine 05/07/2017 2:00 PM BUSINESS SUPPORT ASSOCIATE from Last 3 Months or Most Recently Relevant to Health Maintenance Results * Screening Mammogram Bilateral W Venancio (11/18/2024) Anatomical Region Laterality Modality Breast Bilateral Mammography 11/18/2024 Impressions 11/18/2024 11:30 AM CDT No mammographic evidence of malignancy Recommend routine screening mammography in one year us Joanna GAYLE IMG MAMMO PROCEDURES Final Result * POCT rapid strep A (11/16/2024 1:57 PM CDT) Pathologist [facility] Rapid Strep A, POC Negative Negative Swab 11/16/2024 1:57 PM CDT us Joanna GAYLE POINT OF CARE TEST ORDERAB LES Final Result * Dexa Axial Skeleton Bone Density 1 or 2 Site (09/22/2024 1:42 PM CDT) Pathologist [facility] SCRIBED DXA T-SCORE -0.8 SCRIBED DXA Z-SCORE [...] Test (Image-guided), Liquid-based Preparation (05/07/2017 2:00 PM BUSINESS SUPPORT ASSOCIATE) CLINICAL INFORMATION [facility] HISTORICAL RESULTS [...] has been evaluated with computer assisted technology. EDGER MACHINE OPERATOR: [facility] HISTORICAL RESULTS Comment: MLK, CT(ASCP) CT screening location: [place] [address] [place] [address] 05/07/2017 2:00 PM BUSINESS SUPPORT ASSOCIATE 05/16/2017 7:55 PM BUSINESS SUPPORT ASSOCIATE Narrative [facility] HISTORICAL RESULTS - 05/16/2017 7:42 PM BUSINESS SUPPORT ASSOCIATE FASTING: UNKNOWN PERFORMING LAB: [facility] [place] [address] [facility] [phone] Monty Pugh MD Historical Provider LAB PATHOLOGY ORDERABLES Final Result [facility] HISTORICAL RESULTS from Last 3 Months or Most Recently Relevant to Health Maintenance Insurance [facility] [id number] [place] [address] [facility] MEDICARE Care Teams Oil Well Logging Engineer Relationship Specialty Start Date End Date Joanna Pacheco PA [address] [facility] [address] [place] [address] PCP - General Internal Medicine 03/26/19
--- OUTSIDE RECORDS SUMMARY | 2024-12-03 14:49 | XMS_ITS | Referral Summary ---
Author Organization [address] Address [address] [place] [phone] Care Team Providers Care Locomotive Crane Operator Name Role Phone Joanna Pacheco Primary Care Provider +1- [phone] Encounters Date Type Department Care Team Description 11/30/[address] [place] [phone] Joanna Pacheco PA 11/20/[address] [place] [phone] Joanna Pacheco PA 11/18/[address] [place] [phone] Joanna Pacheco PA 11/17/[address] [place] [phone] Joanna Pacheco PA 11/16/2024 1:30 PM CDT Office Visit [address] [place] [phone] Joanna Pacheco PA Otitis, unspecified laterality (Primary Dx); Nasal congestion; Sore throat; Primary osteoarthritis, unspecified site; Osteopenia of multiple sites; Anxiety; BMI 26.0-26.9,adult 10/30/2024 Telephone [facility] Internal Medicine at [address] [place] [phone] Joanna Pacheco PA 10/19/2024 Telephone [facility] [address] [facility] [address] [place] [address] Joanna Pacheco PA Additional Services Or Orders 10/06/2024 Results Follow-Up [facility] [address] [address] [place] [address] Joanna Pacheco PA Dexa Axial Skeleton Bone Density 1 or 2 Site, Screening Mammogram Bilateral W Venancio 10/02/2024 Telephone [facility] [address] [place] [address] Joanna Pacheco PA from Last [...] maintain. Assessment & Plan (08/06/2024 11:45 AM CUPOLA MELTER): Patient is getting to a nice weight with the help with the Wegovy 2.4. Continue with healthy eating exercise and continue to monitor. Assessment & Plan (07/19/2024 2:24 PM CUPOLA MELTER): Doing well with weight loss efforts with the Wegovy. Assessment & Plan (06/24/2024 12:38 PM CUPOLA MELTER): Weight/BMI is in healthy range. Continue healthy [...] 06/24/2024 Assessment & Plan (06/24/2024 12:37 PM CUPOLA MELTER): Check DEXA Breast cancer screening by mammogram 06/24/2024 Assessment & Plan (06/24/2024 12:37 PM CUPOLA MELTER): Mammogram order provided Prediabetes 01/09/2024 Assessment & Plan (06/24/2024 12:36 PM CUPOLA MELTER): Pre-diabetes/hyperglycemia is a precursor to Dm. Stressed [...] both Assessment & Plan (06/30/2023 3:08 PM CUPOLA MELTER): Patient has persistent hip pain. Mobvicki is [...] medication Assessment & Plan (06/30/2023 3:07 PM CUPOLA MELTER): Bp is stable/in acceptable range for any co-morbidities. Encouraged to limit sodium intake and exercise for weight control. Lisinopril 5 Assessment & Plan (06/03/2023 1:01 PM CUPOLA MELTER): Bp is stable/in acceptable range for any [...] [facility] sooner for any other [...] 11/30/2022 Assessment & Plan (08/06/2024 11:45 AM CUPOLA MELTER): Patient has significant fatigue. It appears as [...] results Assessment & Plan (07/19/2024 2:24 PM CUPOLA MELTER): Patient has been doing great with her [...] 07/13/2019 Assessment & Plan (07/13/2019 9:03 AM CUPOLA MELTER): History of diverticulitis -- Watch diet and increase fluids. Call if has sxs to avoid possible complications Anxiety 05/07/2017 Overview (09/02/2020): Mostly with driving Assessment & Plan (08/06/2024 11:44 AM CUPOLA MELTER): Mood is stable and probably a little improved with her calories. Continue Lexapro and BuSpar Assessment & Plan (06/24/2024 12:36 PM CUPOLA MELTER): Stable with Lexapro 10 and BuSpar 10 [...] bruxism Assessment & Plan (06/30/2023 3:08 PM CUPOLA MELTER): Stable with Lexapro 10. Still having some [...] grinding. Assessment & Plan (07/13/2019 9:06 AM CUPOLA MELTER): Pt is managing sxs with behavior modification. Plans to continue to monitor Mixed hyperlipidemia 05/07/2017 Assessment & Plan (06/24/2024 12:36 PM CUPOLA MELTER): Encouraged patient to follow low fat/low chol [...] 10 Assessment & Plan (06/30/2023 3:07 PM CUPOLA MELTER): Encouraged patient to follow low fat/low chol [...] labs Assessment & Plan (07/13/2019 9:05 AM CUPOLA MELTER): This is a significant, separately identifiable problem [...] 10/12/2023 Assessment & Plan (06/30/2023 3:08 PM CUPOLA MELTER): Patient is being treated. Will continue to [...] provided. Assessment & Plan (06/30/2023 3:07 PM CUPOLA MELTER): Discussed the patient's BMI. The BMI is above average. BMI management plan is completed. BMI Follow-up includes: nutrition counseling, exercise counseling and education provided. BMI 33.0-33.9,adult 06/03/2023 06/30/19 Assessment & Plan (06/03/2023 1:01 PM CUPOLA MELTER): Discussed the patient's BMI. The BMI is above average. BMI management plan is completed. BMI Follow-up includes: nutrition counseling, exercise counseling and education provided. Left hip pain 06/03/2023 06/30/2023 Assessment & Plan (06/03/2023 1:02 PM CUPOLA MELTER): Patient notes left hip pain that is radiating to the groin. Has not had an x-ray done. Does respond nicely to NSAIDs so she can continue with those. Follow-up pending the x-rays Need for Tdap vaccination 06/03/2023 Assessment & Plan (06/03/2023 1:02 PM CUPOLA MELTER): Tdap updated in the office today Obesity [...] provided. Assessment & Plan (06/30/2023 3:06 PM CUPOLA MELTER): Insert obesity Assessment & Plan (06/03/2023 11:26 AM CUPOLA MELTER): Discussed the patients BMI: The BMI is [...] 07/10/20212021 Assessment & Plan (07/10/2021 7:59 AM CUPOLA MELTER): Obesity is unchanged. Discussed the patient's BMI. The BMI is above average. BMI management plan is completed. BMI Follow-up includes: nutrition counseling, exercise counseling and education provided. BMI 31.0-31.9,adult 07/10/2021 02/23/20 Assessment & Plan (07/10/2021 7:59 AM CUPOLA MELTER): Obesity is unchanged. Discussed the patient's BMI. The BMI is above average. BMI management plan is completed. BMI Follow-up includes: nutrition counseling, exercise counseling and education provided. Plantar fasciitis of left foot 07/10/2021 10/12/2023 Assessment & Plan (07/10/2021 9:04 AM CUPOLA MELTER): Symptoms appear to be most consistent with [...] 10/12/2023 Assessment & Plan (07/10/2021 9:06 AM CUPOLA MELTER): Patient has noted visual changes over the [...] provided. Assessment & Plan (05/25/2020 3:23 PM CUPOLA MELTER): Obesity is unchanged. Discussed the patient's BMI. The BMI is above average. BMI management plan is completed. BMI Follow-up includes: nutrition counseling, exercise counseling and education provided. BMI 30.0-30.9,adult 07/13/2019 05/25/20 20 Assessment & Plan (07/13/2019 9:06 AM CUPOLA MELTER): Obesity is unchanged. Discussed the patient's BMI. [...] visit. Assessment & Plan (07/13/2019 9:05 AM CUPOLA MELTER): Encouraged healthy lifestyle, good nutrition and exercise. Encouraged Calcium and Vitamin D and weight bearing exercise for bone health. Reviewed immunizations Reviewed age appropirate screenings. Breast cancer screening by mammogram 07/13/2019 10/12/2023 Assessment & Plan (04/16/2023 8:43 PM CDT): Mammogram order provided Assessment & Plan (04/14/2022 8:22 PM CDT): Mammogram order provided Assessment & Plan (07/13/2019 9:06 AM CUPOLA MELTER): Mammogram order provided Influenza vaccine refused 07/13/2019 Assessment & Plan (07/13/2019 9:06 AM CUPOLA MELTER): Encouraged vaccine. Reviewed risks/ benefits. Patient refuses and accepts risks. Chronic kidney disease (CKD) , stage III (moderate) 07/13/2019 07/17/2020 Assessment & Plan (07/13/2019 9:08 AM CUPOLA MELTER): This is a significant, separately identifiable problem that was evaluated and managed on the same day as the wellness exam This is the first time her GFR has dropped below 60. Avoid nephrotoxic drugs including NSAIDs. Monitor labs. Diverticulitis 06/24/2018 10/12/2023 Overview (09/02/2020): 06/2018 [facility] Assessment & Plan (04/14/2022 8:23 PM [...] plan. Assessment & Plan (05/25/2020 11:15 PM CUPOLA MELTER): Complete flagyl and cipro. BRAT diet and [...] maintain. Assessment & Plan (05/25/2020 11:16 PM CUPOLA MELTER): Obesity is unchanged. Discussed the patient's BMI. [...] on file Legal Sex Female 12:11 AM CUPOLA MELTER Gender Identity Female 05/23/2020 1:48 PM CUPOLA MELTER Sexual Orientation Straight 05/23/2020 1: 48 PM CUPOLA MELTER Occupation Industry Job Start Date Job End Date Retired Not on file Not on file Not on file Last Filed Vital Signs Vital Sign Reading Time Taken Comments Blood Pressure 124/80 11/16/2024 1:43 PM CDT Pulse 81 11/16/2024 1:43 PM CDT Temperature 36.5 C (97.7 F) 11/16/2024 1:43 PM CDT Respiratory Rate 18 05/05/2024 5:55 PM CUPOLA MELTER Oxygen Saturation 98% 11/16/2024 1:43 PM CDT Inhaled Oxygen Concentration - - Weight 76.5 kg (168 lb 11.8 oz) 11/16/2024 1:43 PM CDT Height 170.2 cm (5' 7) 08/06/2024 11:0 4 AM CUPOLA MELTER Body Mass Index 26.43 08/06/2024 11:04 AM CUPOLA MELTER Plan of Treatment Not on file Procedures [...] COLONOSCOPY Routine 08/27/2024 7:15 AM CDT THINPREP MEDIA LIAISON OFFICER PAP (IMAGE GUIDED) LIQUID-BASED PREP Routine 05/07/2017 2:00 PM CUPOLA MELTER from Last 3 Months or Most Recently Relevant to Health Maintenance Results * Screening Mammogram Bilateral W Venancio (11/18/2024) Anatomical Region Laterality Modality Breast Bilateral Mammography 11/18/2024 Impressions 11/18/2024 11:30 AM CDT No mammographic evidence of malignancy Recommend routine screening mammography in one year us Joanna GAYLE IMG MAMMO PROCEDURES Final Result * POCT rapid strep A (11/16/2024 1:57 PM CDT) Pathologist [facility] [place] Rapid Strep A, POC Negative Negative Swab 11/16/2024 1:57 PM CDT us Joanna GAYLE POINT OF CARE TEST ORDERAB LES Final Result * Dexa Axial Skeleton Bone Density 1 or 2 Site (09/22/2024 1:42 PM CDT) Pathologist [facility] [place] SCRIBED DXA T-SCORE -0.8 SCRIBED DXA Z-SCORE [...] Test (Image-guided), Liquid-based Preparation (05/07/2017 2:00 PM CUPOLA MELTER) [facility] H[facility]ORICAL RESULTS [...] has been evaluated with computer assisted technology. DEPARTMENT MGR: [facility] EC HISTORICAL RESULTS Comment: MLK, CT(ASCP) CT screening location: [place] [address] [place] [address] 05/07/2017 2:00 PM CUPOLA MELTER 05/16/2017 7:55 PM CUPOLA MELTER Narrative [facility] - [facility] HISTORICAL RESULTS - 05/16/2017 7:42 PM CUPOLA MELTER FASTING: UNKNOWN PERFORMING LAB: [facility] [address] [facility] [id number] Monty Pugh MD Historical Provider LAB PATHOLOGY ORDERABLES Final Result [facility] EC HISTORICAL RESULTS from Last 3 Months or Most Recently Relevant to Health Maintenance Insurance [facility] [id number] [facility] MEDICARE Care Teams Locomotive Crane Operator Relationship Specialty Start Date End Date Joanna Pacheco PA [address] [facility] [address] [place] [address] PCP - General Internal Medicine 03/26/19
--- OUTSIDE RECORDS SUMMARY | 2024-12-03 14:49 | XMS_ITS | Encounter Summary ---
Author Organization [facility] Facility Care Team Providers Care Message Broker Developer Name Role Phone Joanna Pacheco Primary Care Provider +1- [phone] Encounter Details Date Type Department Care Team (Latest Contact Info) Description 12/04/2017 Orders Only [facility]INCON[facility] ProviderKristofer MD [address] [place] [id number] Social History Tobacco Use Types Packs/Day Years Used Date Smoking Tobacco: Never Assessed Comments Unknown Sex and Gender Information Value Date Recorded Sex Assigned at Not on file Legal Sex Female 12:11 AM CUSTOMER FACILITIES SUPERVISOR Gender Identity Female 05/23/2020 1:48 PM CUSTOMER FACILITIES SUPERVISOR Sexual Orientation Straight 05/23/2020 1: 48 PM CUSTOMER FACILITIES SUPERVISOR documented as of this encounter Plan of [...] COVID: Suspected 05/05/2024 05/05/2024 05/05/2024 6:39 PM CUSTOMER FACILITIES SUPERVISOR COVID: Suspected 11/16/2024 11/16/2024 11/16/2024 1:58 PM CDT documented as of this encounter Care Teams Message Broker Developer Relationship Specialty Start Date End Date Joanna Pacheco PA [address] [facility] [address] [place] [address] PCP - General Internal Medicine 03/26/19 documented as of this encounter
--- OUTSIDE RECORDS SUMMARY | 2024-12-03 14:50 | XMS_ITS | Encounter Summary ---
Author Organization [facility] Healthcare Address [address] [place] [address] Care Team Providers Care Firer Locomotive Crane Name Role Phone Joanna Pacheco Primary Care Provider +1- [phone] Encounter Details Date Type Department Care Team (Late st Contact Info) Description 04/30/2024 Orders Only [facility] Health Information Management [address] [place] [id number] Scanning, Provider Social History Tobacco Use [...] on file Legal Sex Female 12:11 AM FISH ROE PROCESSOR Gender Identity Female 05/23/2020 1:48 PM FISH ROE PROCESSOR Sexual Orientation Straight 05/23/2020 1: 48 PM FISH ROE PROCESSOR Occupation Industry Job Start Date Job End [...] COVID: Suspected 05/05/2024 05/05/2024 05/05/2024 6:39 PM FISH ROE PROCESSOR COVID: Suspected 11/16/2024 11/16/2024 11/16/2024 1:58 PM CDT documented as of this encounter Care Teams Firer Locomotive Crane Relationship Specialty Start Date End Date Joanna Pacheco PA [address] [facility] [address] [place] [address] PCP - General Internal Medicine 03/26/19 documented as of this encounter
[2024-12-03 16:19] VITALS: BP 128/73; PULSE 86; RESP 18; O2SAT 98
== END 2024-12-03 16:20 | disposition home or self-care (01) ==
PROVIDERS: Emergency Provider Physician Assistant; PCP Physician Assistant
DX: K57.32 Diverticulitis of large intestine without perforation or abscess without bleeding (principal); K59.00 Constipation, unspecified; I10 Essential (primary) hypertension; N20.0 Calculus of kidney; K76.0 Fatty (change of) liver, not elsewhere classified
CPT/HCPCS: 36415; 74177; 80053; 81003; 83690; 85025; 99284; Q9967